=== PATIENT | female | born 1955 | race African-American/Black ===

== ENCOUNTER 2016-05-18 21:48 | Inpatient (IN) | payer OTHER, MEDICARE ==
[~2016-05-18] VITALS: Ht 162.6 cm; Wt 56.6 kg
[2016-05-18] MEDS: LABETALOL 200 MG TAB PO SCH (21:00)
[2016-05-18] MEDS: amLODIPine 5 MG TAB PO SCH (21:00)
[2016-05-18 22:38] LABS: BASO % 0.3 % (0.0-1.0); EOS % 0.4 % (0.0-3.0); LARGE UNSTAINED CELL # 0.1 K/mm3 (0.0-0.4); LYMPH # 1.7 K/mm3 (1.5-4.5); LYMPH % 26.8 % (24.0-44.0); MEAN CORPUSCULAR HEMOGLOBIN 30.7 pg (27.0-33.0); MEAN CORPUSCULAR HGB CONC 33.5 g/dl (32.0-36.5); MEAN CORPUSCULAR VOLUME 91.6 fl (80.0-96.0); MONO # 0.3 K/mm3 (0.0-0.8); MONO % 4.9 % (0.0-5.0); NEUTROPHILS # 4.3 K/mm3 (1.8-7.7); NEUTROPHILS % 65.6 % (36.0-66.0); PLATELET COUNT, AUTOMATED 164 k/mm3 (150-450); RED CELL DISTRIBUTION WIDTH 12.4 % (11.5-14.5); WHITE BLOOD COUNT 6.5 K/mm3 (4.0-10.0)
--- NOTE | 2016-05-18 22:50 | REPUSA ---
CLINICAL HISTORY: AMS. TECHNIQUE: Multiple axial CT images were obtained through the brain without IV contrast material. COMMENTS: There is normal configuration of sella turcica. There are no intra or extra-axial collections. There is no mass effect or midline shift. There is no evidence of hematoma formation. No hydrocephalus is p resent. The ventricles are symmetrical. No abnormal calcifications are present. There is diffuse age-appropriate cerebellar and cerebral atrophy with proportionally dilated ventricl es and cortical sulci. Right temporal encephalomalacia is seen compatible with old infarct. There are bilateral confluent periventricular and subcortical white matter hypolucencies compatible w ith severe chronic microvascular disease. Otherwise, no significant focal abnormalities are seen either in the posterior fossa or supratentoria l compartment. IMPRESSION: 1. Severe cerebellar and cerebral atrophy. 2. Severe chronic microvascular disease. 3. Old right temporal infarct. 4. No evidence of acute intracranial pathology. Thank you for your kind referral of this patient.
[2016-05-18 22:51] LABS: ALBUMIN 3.7 GM/DL (3.2-5.2); ALKALINE PHOSPHATASE 89 U/L (45-117); ALT/SGPT 44 U/L (12-78); ANION GAP 7 MEQ/L (8-16); AST/SGOT 36 U/L (15-37); BILIRUBIN,DIRECT 0.1 MG/DL (0.0-0.2); BILIRUBIN,TOTAL 0.3 MG/DL (0.2-1.0); BLOOD UREA NITROGEN 27 MG/DL (7-18); CALCIUM LEVEL 8.9 MG/DL (8.8-10.2); CARBON DIOXIDE LEVEL 31 MEQ/L (21-32); CHLORIDE LEVEL 108 MEQ/L (98-107); CREATININE FOR GFR 1.16 MG/DL (0.55-1.02); GLOMERULAR FILTRATION RATE > 60.0 (>45); GLUCOSE, FASTING 156 MG/DL (80-110); POTASSIUM SERUM 4.7 MEQ/L (3.5-5.1); SODIUM LEVEL 146 MEQ/L (136-145); TOTAL PROTEIN 7.8 GM/DL (6.4-8.2)
[2016-05-18] MEDS ORDERED: ENALAPRILAT INJ 2.5MG/2ML VIAL As Ordered ONE (23:29)
[2016-05-19] MEDS ORDERED: ASPI81TA7 PO
[2016-05-19] MEDS ORDERED: ACETAMINOPHEN 500 MG TAB PO PRN
[2016-05-19] MEDS ORDERED: CALCTAB41 PO
[2016-05-19] MEDS ORDERED: VITMTA PO
[2016-05-19] MEDS ORDERED: ONDANSETRON 4MG/2ML VIAL (J2405) IV PRN
[2016-05-19] MEDS ORDERED: NS 1,000 ML IV SCH (00:15)
[2016-05-19 00:34] LABS: AMPHETAMINES LEVEL URINE NEGATIVE (NEGATIVE); BENZODIAZEPINES URINE NEGATIVE (NEGATIVE); COCAINE METABOLITE URINE NEGATIVE (NEGATIVE); CONTROL LINE INT CTR LINE PRESENT; METHADONE URINE NEGATIVE (NEGATIVE); OPIATES URINE NEGATIVE (NEGATIVE); TRICYCLIC ANTIDEPRESS URINE NEGATIVE (NEGATIVE)
[2016-05-19] MEDS ORDERED: LABETALOL 100 MG TAB As Ordered ONE (01:31)
[2016-05-19] MEDS ORDERED: amLODIPine 5 MG TAB As Ordered ONE ×2 (01:31→08:02)
[2016-05-19 06:55] LABS: BASO % 0.4 % (0.0-1.0); EOS % 0.6 % (0.0-3.0); LARGE UNSTAINED CELL # 0.1 K/mm3 (0.0-0.4); LARGE UNSTAINED CELL % 2.2 % (0.0-4.0); LYMPH # 1.6 K/mm3 (1.5-4.5); LYMPH % 28.9 % (24.0-44.0); MEAN CORPUSCULAR HEMOGLOBIN 30.4 pg (27.0-33.0); MEAN CORPUSCULAR HGB CONC 33.3 g/dl (32.0-36.5); MEAN CORPUSCULAR VOLUME 91.5 fl (80.0-96.0); MONO # 0.3 K/mm3 (0.0-0.8); MONO % 6.1 % (0.0-5.0); NEUTROPHILS # 3.4 K/mm3 (1.8-7.7); NEUTROPHILS % 61.8 % (36.0-66.0); PLATELET COUNT, AUTOMATED 176 k/mm3 (150-450); RED CELL DISTRIBUTION WIDTH 12.4 % (11.5-14.5); WHITE BLOOD COUNT 5.4 K/mm3 (4.0-10.0)
[2016-05-19 07:15] LABS: ANION GAP 7 MEQ/L (8-16); BLOOD UREA NITROGEN 19 MG/DL (7-18); CALCIUM LEVEL 8.1 MG/DL (8.8-10.2); CARBON DIOXIDE LEVEL 26 MEQ/L (21-32); CHLORIDE LEVEL 113 MEQ/L (98-107); CREATININE FOR GFR 0.91 MG/DL (0.55-1.02); GLOMERULAR FILTRATION RATE > 60.0 (>45); GLUCOSE, FASTING 115 MG/DL (80-110); POTASSIUM SERUM 3.2 MEQ/L (3.5-5.1); SODIUM LEVEL 146 MEQ/L (136-145)
--- NOTE | 2016-05-19 07:36 | ECGEPIP ---
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
[2016-05-19] MEDS ORDERED: ENOXAPARIN 40 MG/0.4 ML SYRINGE (J1650) As Ordered ONE (08:02)
[2016-05-19] MEDS ORDERED: PANTOPRAZOLE 40MG TAB (PROTONIX) As Ordered ONE (08:02)
[2016-05-19] MEDS: LABETALOL 200 MG TAB PO SCH ×2 (08:09→21:03)
[2016-05-19] MEDS: SENOKOT S TAB PO SCH ×2 (08:09→21:02)
[2016-05-19] MEDS: ENOXAPARIN 40 MG/0.4 ML SYRINGE (J1650) SC SCH (08:09)
[2016-05-19] MEDS: amLODIPine 5 MG TAB PO SCH ×2 (08:09→21:02)
[2016-05-19] MEDS: ASPIRIN 81 MG ENTERIC TAB PO SCH (08:09)
[2016-05-19] MEDS: PANTOPRAZOLE 40MG TAB (PROTONIX) PO SCH (08:09)
--- NOTE | 2016-05-19 09:25 | REP ---
Clinical: Trauma. Technique: AP, lateral, bilateral oblique, and coned-down views of the lumbosacral spine. Findings: Diffuse chronic multilevel degenerative changes are appreciated including anterior spurring, endplate sclerosis, disc space narrowing and hypertrophic facet changes. There is mild anterolisthesis at the L4-5 level. No obvious acute fracture / compression injury identified. Impression: Multilevel degenerative changes and mild anterolisthesis at the L4-5 level. No obvious acute fracture / compression injury. Signed by Justin Latham MD 05/19/2016 09:16 A
--- NOTE | 2016-05-19 09:26 | REP ---
Clinical: Trauma. Technique: AP, lateral, bilateral oblique, flexion/extension, swimmers and open-mouth views of the cervical spine. Findings: Alignment and lordosis maintained without evidence for acute fracture / compression injury or subluxation. Mild age-related degenerative changes are appreciated including subtle anterior spurring and minimal endplate sclerosis at multiple levels. Spinous processes are intact. Open mouth view demonstrates normal C1-C2 articulation and odontoid process. Impression: Multilevel age-related degenerative changes. No acute fracture / compression injury identified. Signed by Justin Latham MD 05/19/2016 09:18 A
--- NOTE | 2016-05-19 09:27 | REP ---
Clinical: Trauma. Fall. . Comparison: None . Technique: AP view only . Findings: The mediastinum and cardiac silhouette are normal. The lung neely suggest trace left basilar atelectasis without focal consolidation, effusion, or pneumothorax. The skeletal structures are intact and normal. Impression: 1. Trace left basilar atelectasis. Signed by Justin Latham MD 05/19/2016 09:19 A
--- NOTE | 2016-05-19 09:28 | REP ---
Clinical: Trauma. Technique: AP view of the pelvis with neutral and frog lateral views of the right and left hip. Findings: Mild symmetric age-related changes are appreciated throughout the pelvis and hips. There is no evidence for acute fracture or dislocation. Impression: Age-related changes. No acute fracture or dislocation. Signed by Justin Latham MD 05/19/2016 09:21 A
--- NOTE | 2016-05-19 09:29 | REP ---
Clinical: thoracic pain. Trauma. Fall. Technique: AP, lateral. Findings: Alignment and kyphosis is maintained. Vertebral bodies intact. No acute fracture / compression injury or subluxation. Impression: No acute fracture / compression injury or subluxation. Signed by Justin Latham MD 05/19/2016 09:21 A
[2016-05-19 09:52] LABS: MAGNESIUM LEVEL 1.9 MG/DL (1.8-2.4)
--- NOTE | 2016-05-19 11:42 | HPE ---
DATE OF ADMISSION: 05/18/2016 PRIMARY CARE PROVIDER: Does not have any primary care provider. CHIEF COMPLAINT: As per emergency medical services (EMS), the patient was found at the bottom of the stairs in her apartment building and had difficulty in communication, so she was brought in for altered mental status. The patient stated that she stroked out so she was brought to the hospital. PAST MEDICAL HISTORY: 1. 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 2. Depression. 3. Hypertension. 4. Asthma. 5. Unstable gait. HISTORY OF PRESENT ILLNESS: This is a 60-year-old female who lives alone in an apartment with right-sided hemiparesis mostly affecting the right upper extremity, unstable gait, supposed to use a walker while walking, however, does not use it, was found at the bottom of the stairs in her apartment building and emergency medical services (EMS) was called. EMS found her laying at the bottom and had difficulty in communicating with her, so they brought her to the emergency room for altered mental status. The patient denied falling down the stairs. She said she cannot remember how she ended up on the floor. Denied having any pain anywhere. Did say that she is having more difficulty in speaking since yesterday. It is unknown how long the patient was on the floor and she thinks that she may have lost her balance, fallen down, and then could not get up. The patient denied any fever or chills. Denied any chest pain, cough, or phlegm. Denied any abdominal pain, nausea, vomiting, or diarrhea. In the emergency department (ED), the patient had a CT head done which showed old right temporal lobe infarct with encephalomalacia, severe cerebellar and cerebral atrophy, severe chronic microvascular disease. There was no evidence of acute intracranial event. The patient's blood work was significant for a sodium of 146, creatinine of 1.1, blood urea nitrogen (BUN) of 27, lactate of 3.5. The patient is being admitted to the hospitalist service for altered mental status, rule out stroke. PAST SURGICAL HISTORY: Could not obtain. ALLERGIES: No known drug allergies. SOCIAL HISTORY: Has never been a smoker. Does not abuse alcohol or recreational drugs. REVIEW OF SYSTEMS: All 10-point review of systems is negative except as mentioned in the history of present illness. PHYSICAL EXAMINATION: VITAL SIGNS: Blood pressure 208/106, pulse 101, respiratory rate 20, temperature 98.3, pulse oximetry 98% in room air. GENERAL: The patient is awake, alert and oriented times three, laying down in bed, in no acute distress. HEENT: Normocephalic, atraumatic. Moist mucous membranes. Anicteric eyes. CHEST: Clear to auscultation. CARDIOVASCULAR: S1, S2, regular. No rub, murmur, or gallop. ABDOMEN: Soft, nontender. Bowel sounds present. EXTREMITIES: No edema. LABORATORY DATA: WBC 6.5, hemoglobin 12.8, platelets 164. Sodium 146, potassium 4.7, chloride 108, bicarbonate 31, BUN 27, creatinine 1.1, glucose 156, lactic acid 3.5. Cardiac enzymes are negative. CPK is 313. Liver function tests normal. TSH is normal. Urine toxicology is negative. UA shows 10 WBCs, trace leukocyte esterase, negative nitrite. ASSESSMENT AND PLAN: This is a 60-year-old female admitted to rule out stroke. PLAN: 1. Dysarthria, unknown baseline, though the patient claims it is new. CT scan did not show any new stroke. We will get an MRI and MRA for evaluation of acute stroke. We will continue with aspirin 81 mg daily. 2. Hypertension, poorly controlled, unknown medications at this time, so we will start the patient on amlodipine and labetalol. 3. Depression. The patient is to be venlafaxine, unknown what she is taking at this time. 4. Asthma. There are no issues at this point. 5. History of old cerebral vascular accident (CVA) with right-sided hemiparesis with unstable gait. We will request physical therapy to evaluate her. 6. Fall due to unstable gait and the patient not using her walker. We will get physical therapy (PT) to evaluate her. 7. Dehydration, as evidenced by a slightly high sodium, mildly elevated lactate, and mildly elevated blood urea nitrogen (BUN) and creatinine. We will continue the patient with IV hydration. This could be because the patient was down on the floor for an unknown duration. 8. Deep vein thrombosis (DVT) prophylaxis has been ordered. 9. Gastrointestinal (GI) prophylaxis has been ordered.
[2016-05-19] MEDS ORDERED: POTASSIUM CHLORIDE 10 MEQ SR TABLET As Ordered ONE (11:56)
[2016-05-19] MEDS ORDERED: POTASSIUM CHLORIDE 10 MEQ SR TABLET PO ONE (12:00)
--- NOTE | 2016-05-19 13:02 | EDDOCDS ---
Nurse's Notes [facility] Name: Gaye Mata Age: 60 yrs Sex: Female : 1955 Arrival Date: 05/18/2016 Time: 21:48 Bed 15 Private MD: Unknown Pcp Diagnosis: Altered mental status, unspecified;Dysarthria following other cerebrovascular disease;Hypertensive encephalopathy Presentation: 05/18 21:53 Presenting complaint: EMS states: pt found at bottom of stairs. Unable to confirm any ttb information. Adult Sepsis Screening: Patient has new or worsening altered mentation (1 point). Patient's respiratory rate is less than 22. Suicide/Homicide risk assessment- Unable to assess, the patient has an altered level of consciousness. 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 Transition of care: patient was not received from another setting of care. 21:53 Acuity: KELSEY Level 2 ttb 21:53 Method Of Arrival: Ambulance ttb 21:59 Care prior to arrival: See EMS report. Saline lock initiated. Glucose check. 189. ttb 05/19 13:00 Adult Sepsis Screening: Systolic blood pressure is greater than 100. Patient has a pml qSOFA score of 0- Negative Sepsis Screen. Triage Assessment: 05/18 21:55 General: Appears in no apparent distress, well nourished, well groomed, Behavior is ttb flat, pleasant. Neurological: Level of Consciousness is awake, alert, confused, Oriented to none. Respiratory: Airway is patent Respiratory effort is even, unlabored. Derm: Skin is normal. Injury Description: No known injury. 05/19 13:00 HIV screening NA for this visit unable to assess. pml Historical: - Allergies: Unable to obtain; - Home Meds: 1. Unknown - PMHx: Unable to obtain; - PSHx: Unable to obtain; - Social history: Not able to communicate due to their condition, Smoking status: unknown if patient ever smoked tobacco. - Family history: Not pertinent. - : Unable to assess if pt is on anticoagulants. Unable to Verify Home Med List with the patient / caregiver. - Exposure Risk Screening:: Unable to Assess. Screenin/14 22:05 Screening information is obtained from unknown, unable to assess. Fall risk: At risk tm5 due to apparent cognitive impairment, prior history of falls. Assistance ADL's: requires no assistance with activities of daily living. Abuse/DV Screen: The patient / caregiver reports he/she is: not in a situation that causes fear, pain or injury. Nutritional screening: Unable to Assess. Advance Directives: Unable to assess Advance Directive status due to pt condition. home support is adequate. Assessment: 22:05 General: Appears distressed, Behavior is uncooperative. Pain: Denies pain. tm5 Neurological: Level of Consciousness is awake, alert, Oriented to person, pt confused to time & place. Medical Psychotherapist are weak on left Moves all extremities. Weakness in left Gait is unable to assess. Speech with expressive aphasia noted, Facial symmetry appears normal, Facial symmetry: tongue is midline, Pupils are PERRLA. Cardiovascular: Rhythm is sinus tachycardia No ectopy. Respiratory: Airway is patent Respiratory effort is even, unlabored, Respiratory pattern is regular, symmetrical, Breath sounds are clear bilaterally. GI: No deficits noted. : No deficits noted. Derm: Skin is pink, warm & dry. normal. Musculoskeletal: No deficits noted. 23:39 Neurological: Level of Consciousness is awake, alert, Oriented to person, Medical Psychotherapist are tm5 weak on left Weakness in left Speech with expressive aphasia noted, Facial symmetry appears normal, Facial symmetry: tongue is midline, Pupils are PERRLA. 05/19 01:00 General: pt attempting to climb out of bed, pulled IV tubing off from saline lock, tm5 blood leaking from IV site, pt confused at this time, is asking to go to the bathroom was told she had Mckeon in place & she doesn't seem to understand what that means, saline lock flushed easily with normal saline. 02:13 Reassessment: Patient appears in no apparent distress at this time. Patient states tm5 feeling better. Patient states symptoms have improved. General: pt completed boxed meal & tolerated well, no changes in assessment . Neurological: Level of Consciousness is awake, alert, Oriented to person, Medical Psychotherapist are weak on left Moves all extremities. Weakness in left Speech with expressive aphasia noted, Facial symmetry appears normal, Facial symmetry: tongue is midline, Pupils are PERRLA. Cardiovascular: Rhythm is sinus rhythm. 04:06 Reassessment: Patient appears in no apparent distress at this time. pt sleeping with tm5 easy respirations, no s/s of any distress. 05:56 Reassessment: Patient appears in no apparent distress at this time. pt remains resting tm5 with eyes closed, resp easy, no s/s of any distress. 07:05 General: Appears in no apparent distress, Behavior is appropriate for age, cooperative. pml Pain: Denies pain. Neurological: Level of Consciousness is awake, alert. Cardiovascular: Capillary refill < 3 seconds Rhythm is sinus rhythm No ectopy. Respiratory: Airway is patent Respiratory effort is even, unlabored. : Mckeon in place to gravity drainage. Derm: Skin is pink, warm & dry. 08:22 General: resting quietly on stretcher, PO meds as per written orders. resps easy and pml unlabored, skin p/w/d . 09:14 General: Appears in no apparent distress, Behavior is appropriate for age, cooperative. pml Neurological: Level of Consciousness is awake, alert. Cardiovascular: Capillary refill < 3 seconds Rhythm is sinus rhythm No ectopy. Derm: Skin is pink, warm & dry. 10:07 General: Resting on stretcher, eyes closed, sinus rhythm without change. resps easy and pml unlabored, skin p/w/d. 11:20 General: Appears in no apparent distress, comfortable, Behavior is appropriate for age, pml cooperative. Neurological: Level of Consciousness is awake, alert, Oriented to person, place. Cardiovascular: Capillary refill < 3 seconds Rhythm is sinus rhythm No ectopy. Derm: Skin is pink, warm & dry. 12:01 General: PO meds as per orders on jul. tolerated pills one at a time with sips pml of water. 12:57 General: Appears in no apparent distress, Behavior is appropriate for age, cooperative. pml Pain: Denies pain. Neurological: Level of Consciousness is awake, alert, Oriented to person, place. Cardiovascular: Capillary refill < 3 seconds Rhythm is sinus rhythm No ectopy. Respiratory: Airway is patent Respiratory effort is even, unlabored. GI: Abdomen is non- distended. Derm: Skin is pink, warm & dry. Vital Signs: 05/18 21:55 Resp 20; ttb 22:05 BP 208 / 106; Pulse 101; Resp 20 S; Temp 98.3(TE); Pulse Ox 98% on R/A; Weight 68.04 tm5 kg; Height 5 ft. 4 in. (162.56 cm); Pain 0/10; 23:05 BP 184 / 95 (auto/); tm5 23:05 Pulse 80 MON; Pulse Ox 96% ; tm5 23:13 BP 173 / 91 (auto/); tm5 23:13 Pulse 74 MON; Pulse Ox 96% ; tm5 23:28 BP 182 / 93 (auto/); tm5 23:28 Pulse 76 MON; Resp 18 S; Pulse Ox 97% on R/A; Pain 0/10; tm5 23:37 BP 191 / 95 (auto/); tm5 23:37 Pulse 96 MON; Resp 20 S; Pulse Ox 98% on R/A; Pain 0/10; tm5 23:43 BP 207 / 98 (auto/); tm5 23:43 Pulse 92 MON; Pulse Ox 95% on R/A; tm5 23:43 BP 210 / 110; Pulse 90; Resp 20 S; Pulse Ox 96% on R/A; Pain 0/10; tm5 05/19 00:13 BP 200 / 102 (auto/); tm5 00:13 Pulse 88 MON; Pulse Ox 96% ; tm5 00:28 BP 180 / 98 (auto/); tm5 00:28 Pulse 84 MON; Resp 18 S; Pulse Ox 95% on R/A; Pain 0/10; tm5 00:53 BP 199 / 95 (auto/); tm5 00:53 Pulse 106 MON; Resp 18 S; Pulse Ox 98% on R/A; Pain 0/10; tm5 01:13 BP 171 / 88 (auto/); tm5 01:13 Pulse 84 MON; Pulse Ox 97% ; tm5 01:28 BP 163 / 85 (auto/); tm5 01:28 Pulse 80 MON; Pulse Ox 97% ; tm5 01:43 Pulse 82 MON; Pulse Ox 97% ; tm5 01:43 BP 185 / 90 (auto/); tm5 01:58 BP 175 / 91 (auto/); tm5 01:58 Pulse 86 MON; Resp 18 S; Pulse Ox 95% on R/A; Pain 0/10; tm5 02:13 BP 157 / 79 (auto/); tm5 02:13 Pulse 78 MON; tm5 02:28 BP 130 / 67 (auto/); tm5 02:28 Pulse 74 MON; tm5 02:43 BP 135 / 70 (auto/); tm5 02:43 Pulse 76 MON; Resp 16 S; Pulse Ox 96% on R/A; Pain 0/10; tm5 02:58 BP 131 / 66 (auto/); tm5 02:58 Pulse 76 MON; Resp 16 S; Pulse Ox 97% on R/A; tm5 03:13 BP 139 / 74 (auto/); tm5 03:13 Pulse 80 MON; Resp 20 S; Pulse Ox 98% on R/A; Pain 0/10; tm5 06:23 BP 149 / 74 (auto/); pml 06:24 Pulse 80 MON; Pulse Ox 97% ; pml 06:26 BP 149 / 74; Pulse 82; Resp 20; Temp 96.5(T); Pulse Ox 98% on R/A; Pain 0/10; jmv 07:03 BP 132 / 75 (auto/); pml 07:04 Pulse 76 MON; Pulse Ox 97% ; pml 07:17 BP 126 / 68 (auto/); pml 07:18 Pulse 64 MON; Pulse Ox 95% ; pml 07:32 BP 136 / 71 (auto/); pml 07:33 Pulse 62 MON; Pulse Ox 98% ; pml 07:47 BP 130 / 70 (auto/); pml 07:48 Pulse 62 MON; Pulse Ox 97% ; pml 08:02 BP 127 / 63 (auto/); pml 08:03 Pulse 60 MON; Pulse Ox 98% ; pml 08:17 BP 136 / 75 (auto/); pml 08:18 Pulse 74 MON; Pulse Ox 98% ; pml 08:32 BP 154 / 84 (auto/); pml 08:32 Pulse 76 MON; Pulse Ox 99% ; pml 08:47 BP 130 / 69 (auto/); pml 08:48 Pulse 76 MON; pml 09:02 BP 128 / 69 (auto/); pml 09:02 BP 128 / 69 (auto/); pml 09:03 Pulse 74 MON; pml 09:11 Pulse 68 MON; pml 09:17 Pulse 64 MON; Pulse Ox 97% ; pml 09:17 BP 97 / 53 (auto/); pml 09:32 Pulse 64 MON; Pulse Ox 97% ; pml 09:32 BP 114 / 61 (auto/); pml 09:47 Pulse 62 MON; Pulse Ox 97% ; pml 09:47 BP 115 / 60 (auto/); pml 10:02 Pulse 62 MON; Pulse Ox 97% ; pml 10:02 BP 119 / 65 (auto/); pml 10:17 Pulse 66 MON; Pulse Ox 98% ; pml 10:17 BP 116 / 63 (auto/); pml 10:31 Pulse 64 MON; Pulse Ox 98% ; pml 10:32 BP 128 / 64 (auto/); pml 10:47 Pulse 60 MON; Pulse Ox 98% ; pml 10:47 BP 120 / 60 (auto/); pml 11:02 Pulse 62 MON; Pulse Ox 98% ; pml 11:02 BP 120 / 63 (auto/); pml 11:17 Pulse 72 MON; Pulse Ox 98% ; pml 11:17 BP 133 / 69 (auto/); pml 11:32 Pulse 80 MON; pml 11:32 BP 135 / 70 (auto/); pml 11:46 Pulse 74 MON; pml 11:47 BP 135 / 71 (auto/); pml 12:02 Pulse 76 MON; Pulse Ox 99% ; pml 12:02 BP 150 / 82 (auto/); pml 12:58 BP 119 / 67; Pulse 72; Resp 18; Temp 97.9; Pulse Ox 99% ; Pain 0/10; pml 05/18 22:05 Body Mass Index 25.75 (68.04 kg, 162.56 cm) tm5 Vitals: 05/18 21:55 Log In Time N/A - ambulance arrival. ttb ED Course: 21:49 Patient visited by Krystina Colbert PCA. tmm1 21:49 Unknown Pcp is Private Physician. tmm1 21:49 Patient moved to Waiting tmm1 21:50 Patient name changed from Gaye\S\\S\Mata\S\ to Gaye\S\ \S\Mata. EDMS 21:51 Kemar Vital DO is Attending Physician. cs11 21:51 Patient visited by Kemar Vital DO. cs11 21:51 Patient moved to 4 tmm1 21:55 Triage Initiated ttb 22:04 Patient visited by Bozena Sheltno RN. tm5 22:[address] Scan. Awaiting ED physician evaluation. tm5 22:05 The patient / caregiver is instructed regarding the plan of care and ED course. Cardiac tm5 monitor on. Pulse ox on. NIBP on. 22:05 Inserted saline lock: 18 gauge in left antecubital area and blood collected. The tm5 patient tolerated the procedure well. Labs drawn. (by ED staff). 22:[address] tm5 22:16 Patient visited by Bozena Shelton RN. tm5 22:17 Lactic Acid (Bledsoe tube on ice) Sent. tm5 22:17 Acetaminophen Level Sent. tm5 22:17 Salicylate Level Sent. tm5 22:17 CBC with Diff Sent. tm5 22:17 Liver Profile Sent. tm5 22:17 MED Profile Sent. tm5 22:17 Thyroid Stimulating Hormone Sent. tm5 22:19 Patient visited by Bozena Shelton RN. tm5 22:19 Patient moved back from CT. tm5 22:33 Patient visited by Bozena Shelton RN. tm5 22:47 Patient visited by Bozena Shelton RN. tm5 22:58 Notified attending ED physician of Critical lab value. Lactic Acid 3.5. kmg1 23:14 Amy Markham is Hospitalizing Provider. cs11 23:17 CT Head Without Contrast Returned. EDMS 23:37 Patient visited by Bozena Shelton RN. tm5 23:38 Psych services to see patient. Visited by Hospitalist Mary at bedside. tm5 23:41 [facility] Payment Agreement was scanned into [employer] and attached to record. hs2 23:43 Mckeon cath inserted 18 Fr. Balloon inflated. To gravity drainage. Urine specimen tm5 collected. returned cloudy urine. Patient tolerated poorly. 05/19 00:11 Patient visited by Bozena Shelton RN. tm5 00:12 Urine Culture Sent. tm5 00:12 Urinalysis Sent. tm5 00:12 Drug Eval Toxicology ED Only Sent. tm5 00:38 Patient moved to Admit Hold tmm1 01:00 Patient visited by Bozena Shelton RN. tm5 02:13 Patient visited by Bozena Shelton RN. tm5 04:06 Patient visited by Bozena Shelton RN. tm5 04:52 Patient visited by Boezna Shelton RN. tm5 05:19 Patient visited by Bozena Shelton RN. tm5 06:27 Patient visited by Darren Cortez PCA. jmv 06:35 Patient visited by Bozena Shelton RN. tm5 06:56 Patient visited by Bozena Shelton RN. tm5 06:57 Patient visited by Bozena Shelton RN. tm5 06:57 Report given to Yakelin Villegas RN. tm5 07:06 Patient visited by Yakelin Alegria RN. pml 07:59 EKG-ADULT Returned. EDMS 08:24 Patient visited by Yakelin Alegria RN. pml 08:27 Patient moved to 15 pml 09:16 Patient visited by Yakelin Alegria RN. pml 09:30 T-Sheet-- Draft Copy was scanned into [employer] and attached to record. seh 09:40 Spine. Lumbosacral, complete Returned. EDMS 09:40 Spine, Cervical Returned. EDMS 09:40 Chest, 1 view Returned. EDMS 09:40 Hip,AP,LAT to include Pelvis Returned. EDMS 09:40 Spine, Thoracic 3 VIEWS Returned. EDMS 10:09 Patient visited by Yakelin Alegria RN. pml 11:21 Patient visited by Yakelin Alegria RN. pml 11:32 No procedures done that require assistance. pml 12:02 Patient visited by Yakelin Alegria RN. pml Administered Medications: 05/18 23:38 Drug: NS 0.9% 1000 ml [sodium chloride 0.9 % intravenous solution] Route: IV; Rate: tm5 bolus; Site: left forearm; 05/19 00:45 Follow up: IV Status: Completed infusion; IV Intake: 1000ml tm5 05/18 23:38 Drug: Enalaprilat 2.5 mg [enalaprilat 1.25 mg/mL intravenous solution] Route: IV; Rate: tm5 calculated rate; Site: left forearm; 05/19 00:12 Follow up: Response: No Adverse Reaction; No significant change. tm5 00:20 Follow up: Response: Blood pressure is improved; No Adverse Reaction tm5 Intake: 00:45 IV: 1000.00ml; Total: 1000.00ml. tm5 Output: 06:35 Urine: 1000.00ml (Mckeon); Total: 1000.00ml. tm5 Order Results: Lab Order: CBC with Diff; SPEC'M 05/18/16 22:13 Test: WHITE BLOOD COUNT; Value: 6.5; Range: 4.0-10.0; Units: K/mm3; Status: F Test: RED BLOOD COUNT; Value: 4.18; Range: 4.00-5.40; Units: M/mm3; Status: F Test: HEMOGLOBIN; Value: 12.8; Range: 12.0-16.0; Units: g/dl; Status: F Test: HEMATOCRIT; Value: 38.3; Range: 36.0-47.0; Units: %; Status: F Test: MEAN CORPUSCULAR VOLUME; Value: 91.6; Range: 80.0-96.0; Units: fl; Status: F Test: MEAN CORPUSCULAR HEMOGLOBIN; Value: 30.7; Range: 27.0-33.0; Units: pg; Status: F Test: MEAN CORPUSCULAR HGB CONC; Value: 33.5; Range: 32.0-36.5; Units: g/dl; Status: F Test: RED CELL DISTRIBUTION WIDTH; Value: 12.4; Range: 11.5-14.5; Units: %; Status: F Test: PLATELET COUNT, AUTOMATED; Value: 164; Range: 150-450; Units: k/mm3; Status: F Test: NEUTROPHILS %; Value: 65.6; Range: 36.0-66.0; Units: %; Status: F Test: LYMPH %; Value: 26.8; Range: 24.0-44.0; Units: %; Status: F Test: MONO %; Value: 4.9; Range: 0.0-5.0; Units: %; Status: F Test: EOS %; Value: 0.4; Range: 0.0-3.0; Units: %; Status: F Test: BASO %; Value: 0.3; Range: 0.0-1.0; Units: %; Status: F Test: LARGE UNSTAINED CELL %; Value: 2.0; Range: 0.0-4.0; Units: %; Status: F Test: NEUTROPHILS #; Value: 4.3; Range: 1.8-7.7; Units: K/mm3; Status: F Test: LYMPH #; Value: 1.7; Range: 1.5-4.5; Units: K/mm3; Status: F Test: MONO #; Value: 0.3; Range: 0.0-0.8; Units: K/mm3; Status: F Test: EOS #; Value: 0.0; Range: 0.0-0.50; Units: K/mm3; Status: F Test: BASO #; Value: 0.0; Range: 0.0-0.2; Units: K/mm3; Status: F Test: LARGE UNSTAINED CELL #; Value: 0.1; Range: 0.0-0.4; Units: K/mm3; Status: F Lab Order: Liver Profile; SPEC'M 05/18/16 22:13 Test: AST/SGOT; Value: 36; Range: 15-37; Units: U/L; Status: F Test: ALT/SGPT; Value: 44; Range: 12-78; Units: U/L; Status: F Test: ALKALINE PHOSPHATASE; Value: 89; Range: 45-117; Units: U/L; Status: F Test: BILIRUBIN,TOTAL; Value: 0.3; Range: 0.2-1.0; Units: MG/DL; Status: F Test: BILIRUBIN,DIRECT; Value: 0.1; Range: 0.0-0.2; Units: MG/DL; Status: F Test: TOTAL PROTEIN; Value: 7.8; Range: 6.4-8.2; Units: GM/DL; Status: F Test: ALBUMIN; Value: 3.7; Range: 3.2-5.2; Units: GM/DL; Status: F Test: ALBUMIN/GLOBULIN RATIO; Value: 0.90; Range: 1.00-1.93; Abnormal: Below low normal; Status: F Lab Order: MED Profile; SPEC'M 05/18/16 22:13 Test: GLUCOSE, FASTING; Value: 156; Range: 80-110; Abnormal: Above high normal; Units: MG/DL; Status: F Test: BLOOD UREA NITROGEN; Value: 27; Range: 7-18; Abnormal: Above high normal; Units: MG/DL; Status: F Test: CREATININE FOR GFR; Value: 1.16; Range: 0.55-1.02; Abnormal: Above high normal; Units: MG/DL; Status: F Test: GLOMERULAR FILTRATION RATE; Value: > 60.0; Range: >45; Status: F Test: SODIUM LEVEL; Value: 146; Range: 136-145; Abnormal: Above high normal; Units: MEQ/L; Status: F Test: POTASSIUM SERUM; Value: 4.7; Range: 3.5-5.1; Units: MEQ/L; Status: F Test: CHLORIDE LEVEL; Value: 108; Range: 98-107; Abnormal: Above high normal; Units: MEQ/L; Status: F Test: CARBON DIOXIDE LEVEL; Value: 31; Range: 21-32; Units: MEQ/L; Status: F Test: ANION GAP; Value: 7; Range: 8-16; Abnormal: Below low normal; Units: MEQ/L; Status: F Test: CALCIUM LEVEL; Value: 8.9; Range: 8.8-10.2; Units: MG/DL; Status: F Test Note: ; Units are mL/min/1.73 m2 Chronic Kidney Disease Staging per NKF: Stage I & II GFR >=60 Normal to Mildly Decreased Stage III GFR 30-59 Moderately Decreased Stage IV GFR 15-29 Severely Decreased Stage V GFR <15 Very Little GFR Left ESRD GFR <15 on LABEL REMOVER Lab Order: Thyroid Stimulating Hormone; SPEC'M 05/18/16 22:13 Test: THYROID STIMULATING HORMONE; Value: 1.350; Range: 0.358-3.740; Units: uIU/ML; Status: F Lab Order: Acetaminophen Level; SPEC'M 05/18/16 22:13 Test: ACETAMINOPHEN LEVEL; Value: < 2.0; Range: 10.0-30.0; Abnormal: Below low normal; Units: UG/ML; Status: F Lab Order: Drug Eval Toxicology ED Only; SPEC'M 05/18/16 22:13 Test: AMPHETAMINES LEVEL URINE; Value: NEGATIVE; Range: NEGATIVE; Status: F Test: BARBITURATES URINE; Value: NEGATIVE; Range: NEGATIVE; Status: F Test: BENZODIAZEPINES URINE; Value: NEGATIVE; Range: NEGATIVE; Status: F Test: CANNABINOIDS URINE; Value: NEGATIVE; Range: NEGATIVE; Status: F Test: COCAINE METABOLITE URINE; Value: NEGATIVE; Range: NEGATIVE; Status: F Test: METHADONE URINE; Value: NEGATIVE; Range: NEGATIVE; Status: F Test: OPIATES URINE; Value: NEGATIVE; Range: NEGATIVE; Status: F Test: TRICYCLIC ANTIDEPRESS URINE; Value: NEGATIVE; Range: NEGATIVE; Status: F Test Note: ; ALL PRESUMPTIVE POSITIVE FINDINGS ARE UNCONFIRMED NORMAL VALUES THRESHOLD IN NG/ML AMPHETAMINES 1000 METHAMPHETAMINES 1000 BARBITURATES 300 BENZODIAZEPINES 300 CANNABINOIDS (THC) 50 COCAINE METABOLITE 300 METHADONE 300 OPIATES 300 PHENCYCLIDINE 25 TRICYCLIC ANTIDEPRESSANTS 1000 RESULTS ARE FOR MEDICAL PURPOSES ONLY. ALL URINE SPECIMENS WILL BE SAVED FOR 3 DAYS. IF CONFIRMATION OF A PRESUMPTIVE POSTIVE SCREEN RESULT IS DESIRED, CALL CHEMISTRY ([phone]) AND REQUEST URINE TO BE SENT TO REFERENCE LAB. FOR A LIST OF CLOSELY RELATED COMPOUNDS PLEASE CALL THE LAB. Lab Order: Salicylate Level; SPEC'M 05/18/16 22:13 Test: SALICYLATE LEVEL; Value: < 1.7; Range: 5.0-30.0; Abnormal: Below low normal; Units: MG/DL; Status: F Lab Order: Lactic Acid (Bledsoe tube on ice); SPEC'M 05/18/16 22:13 Test: LACTIC ACID LEVEL, LACTATE; Value: 3.5; Range: 0.4-2.0; Abnormal: Above upper panic limits; Units: MMOL/L; Status: F Lab Order: Urinalysis; SPEC'M 05/19/16 00:07 Test: APPEARANCE, URINE; Value: CLOUDY; Range: CLEAR; Abnormal: Above high normal; Status: F Test: COLOR, URINE; Value: YELLOW; Range: YELLOW; Status: F Test: PH,URINE; Value: 6.0; Range: 5.0-9.0; Units: UNITS; Status: F Test: SPECIFIC GRAVITY URINE AUTO; Value: 1.018; Range: 1.002-1.035; Status: F Test: PROTEIN, URINE AUTO; Value: NEGATIVE; Range: NEGATIVE; Units: mg/dL; Status: F Test: GLUCOSE, URINE (UA) AUTO; Value: NEGATIVE; Range: NEGATIVE; Units: mg/dL; Status: F Test: KETONE, URINE AUTO; Value: NEGATIVE; Range: NEGATIVE; Units: mg/dL; Status: F Test: UROBILINOGEN, URINE AUTO; Value: 2.0; Range: 0.0-2.0; Abnormal: Above high normal; Units: mg/dL; Status: F Test: BILIRUBIN, URINE AUTO; Value: NEGATIVE; Range: NEGATIVE; Status: F Test: NITRITE, URINE AUTO; Value: NEGATIVE; Range: NEGATIVE; Status: F Test: LEUKOCYTE ESTERASE, URINE AUTO; Value: TRACE; Range: NEGATIVE; Abnormal: Above high normal; Status: F Test: BLOOD, URINE BLOOD; Value: NEGATIVE; Range: NEGATIVE; Status: F Test: WBC, URINE AUTO; Value: 10; Range: 0-3; Abnormal: Above high normal; Units: /HPF; Status: F Test: RBC, URINE AUTO; Value: 1; Range: 0-3; Units: /HPF; Status: F Test: BACTERIA, URINE AUTO; Value: 1+; Range: NEGATIVE; Abnormal: Above high normal; Status: F Test: SQUAMOUS EPITHELIAL CELL UR AU; Value: 0; Range: 0-6; Units: /HPF; Status: F Test: HYALINE CAST, URINE AUTO; Value: 0; Range: 0-1; Units: /LPF; Status: F Test: AMORPHOUS SEDIMENT; Value: SMALL; Range: NEGATIVE; Abnormal: Above high normal; Status: F Lab Order: CBC WITH DIFFERENTIAL; SPEC'M 05/19/16 06:29 Test: WHITE BLOOD COUNT; Value: 5.4; Range: 4.0-10.0; Units: K/mm3; Status: F Test: RED BLOOD COUNT; Value: 3.79; Range: 4.00-5.40; Abnormal: Below low normal; Units: M/mm3; Status: F Test: HEMOGLOBIN; Value: 11.5; Range: 12.0-16.0; Abnormal: Below low normal; Units: g/dl; Status: F Test: HEMATOCRIT; Value: 34.6; Range: 36.0-47.0; Abnormal: Below low normal; Units: %; Status: F Test: MEAN CORPUSCULAR VOLUME; Value: 91.5; Range: 80.0-96.0; Units: fl; Status: F Test: MEAN CORPUSCULAR HEMOGLOBIN; Value: 30.4; Range: 27.0-33.0; Units: pg; Status: F Test: MEAN CORPUSCULAR HGB CONC; Value: 33.3; Range: 32.0-36.5; Units: g/dl; Status: F Test: RED CELL DISTRIBUTION WIDTH; Value: 12.4; Range: 11.5-14.5; Units: %; Status: F Test: PLATELET COUNT, AUTOMATED; Value: 176; Range: 150-450; Units: k/mm3; Status: F Test: NEUTROPHILS %; Value: 61.8; Range: 36.0-66.0; Units: %; Status: F Test: LYMPH %; Value: 28.9; Range: 24.0-44.0; Units: %; Status: F Test: MONO %; Value: 6.1; Range: 0.0-5.0; Abnormal: Above high normal; Units: %; Status: F Test: EOS %; Value: 0.6; Range: 0.0-3.0; Units: %; Status: F Test: BASO %; Value: 0.4; Range: 0.0-1.0; Units: %; Status: F Test: LARGE UNSTAINED CELL %; Value: 2.2; Range: 0.0-4.0; Units: %; Status: F Test: NEUTROPHILS #; Value: 3.4; Range: 1.8-7.7; Units: K/mm3; Status: F Test: LYMPH #; Value: 1.6; Range: 1.5-4.5; Units: K/mm3; Status: F Test: MONO #; Value: 0.3; Range: 0.0-0.8; Units: K/mm3; Status: F Test: EOS #; Value: 0.0; Range: 0.0-0.50; Units: K/mm3; Status: F Test: BASO #; Value: 0.0; Range: 0.0-0.2; Units: K/mm3; Status: F Test: LARGE UNSTAINED CELL #; Value: 0.1; Range: 0.0-0.4; Units: K/mm3; Status: F Lab Order: BASIC METABOLIC PROFILE; [facility]' 05/19/16 06:28 Test: GLUCOSE, FASTING; Value: 115; Range: 80-110; Abnormal: Above high normal; Units: MG/DL; Status: F Test: BLOOD UREA NITROGEN; Value: 19; Range: 7-18; Abnormal: Above high normal; Units: MG/DL; Status: F Test: CREATININE FOR GFR; Value: 0.91; Range: 0.55-1.02; Units: MG/DL; Status: F Test: GLOMERULAR FILTRATION RATE; Value: > 60.0; Range: >45; Status: F Test: SODIUM LEVEL; Value: 146; Range: 136-145; Abnormal: Above high normal; Units: MEQ/L; Status: F Test: POTASSIUM SERUM; Value: 3.2; Range: 3.5-5.1; Units: MEQ/L; Status: F Test: CHLORIDE LEVEL; Value: 113; Range: 98-107; Abnormal: Above high normal; Units: MEQ/L; Status: F Test: CARBON DIOXIDE LEVEL; Value: 26; Range: 21-32; Units: MEQ/L; Status: F Test: ANION GAP; Value: 7; Range: 8-16; Abnormal: Below low normal; Units: MEQ/L; Status: F Test: CALCIUM LEVEL; Value: 8.1; Range: 8.8-10.2; Abnormal: Below low normal; Units: MG/DL; Status: F Test Note: ; Units are mL/min/1.73 m2 Chronic Kidney Disease Staging per NKF: Stage I & II GFR >=60 Normal to Mildly Decreased Stage III GFR 30-59 Moderately Decreased Stage IV GFR 15-29 Severely Decreased Stage V GFR <15 Very Little GFR Left ESRD GFR <15 on LABEL REMOVER Lab Order: LACTIC ACID LEVEL, LACTATE; SPEC'05/19/16 03:27 Test: LACTIC ACID LEVEL, LACTATE; Value: 1.5; Range: 0.4-2.0; Units: MMOL/L; Status: F Lab Order: CARDIAC RISK PROFILE; SPEC05/19/16 06:28 Test: TRIGLYCERIDES LEVEL; Value: 43; Range: <150; Units: MG/DL; Status: F Test: CHOLESTEROL LEVEL; Value: 96; Range: <200; Units: MG/DL; Status: F Test: HDL CHOLESTEROL; Value: 50; Range: >40; Units: MG/DL; Status: F Test: LDL CHOLESTEROL; Value: 37.4; Range: <100; Units: MG/DL; Status: F Test: NON-HDL-C; Value: 46; Units: MG/DL; Status: F Test: CHOLESTEROL RISK RATIO; Value: 1.920; Range: <5; Status: F Lab Order: HEMOGLOBIN A1C; SPEC05/19/16 06:22 Test: HEMOGLOBIN A1c; Value: 5.2; Range: 4.5-6.2; Units: %; Status: F Test: ESTIMATED AVERAGE GLUCOSE; Value: 103; Range: 60-110; Units: MG/DL; Status: F Lab Order: CREATINE PHOSPHOKINASE; SPEC'05/19/16 06:28 Test: CPK CREATINE PHOSPHOKINASE; Value: 223; Range: 26-192; Abnormal: Above high normal; Units: U/L; Status: F Lab Order: TROPONIN; SPEC'M 05/19/16 06:28 Test: TROPONIN I; Value: 0.09; Range: < 0.10; Units: NG/ML; Status: F Test Note: ; Troponin I Reference Interval for Siemens [place] LOCI: 99th Percentile= 0.00-0.045 ng/ml Risk Stratification: <= 0.10 ng/ml Decreased Risk for Adverse Clinical Events. 0.10-1.50 ng/ml Increased Risk for Adverse Clinical Events. Evaluation of additional criterion and/or repeat testing in 2-6 hours is suggested to rule out myocardial damage. >= 1.50 ng/ml Indicative of Myocardial Injury. 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; : 1955 Requested By: KEMAR VITAL; Order Number: [id number] Reading MD: Amaris Sylvester; Measurements; Intervals [place]; Rate: 96 P: 58; OR: 142 QRS: 2; QRSD: 76 T: 33; QT: 376; QTc: 476; Interpretive Statements; SINUS RHYTHM WITH OCCASIONAL VENTRICULAR PREMATURE COMPLEXES; NONSPECIFIC ST T-WAVE ABNORMALITY; BASELINE ARTIFACT LIMITS INTERPRETATION; NO PRIOR FOR COMPARISON; Electronically Signed On 05-19-2016 7:36:05 EST by Amaris Sylvester; Radiology Order: CT Head Without Contrast Test: CT Head Without Contrast REASON FOR EXAMINATION: altered mental status; ; CLINICAL HISTORY: AMS.; TECHNIQUE: Multiple axial CT images were obtained through the brain without IV contrast material.; COMMENTS:; There is normal configuration of sella turcica. There are no intra or extra-axial collections. There; is no mass effect or midline shift. There is no evidence of hematoma formation. No hydrocephalus is p; resent. The ventricles are symmetrical. No abnormal calcifications are present.; There is diffuse age-appropriate cerebellar and cerebral atrophy with proportionally dilated ventricl; es and cortical sulci.; Right temporal encephalomalacia is seen compatible with old infarct.; There are bilateral confluent periventricular and subcortical white matter hypolucencies compatible w; ith severe chronic microvascular disease.; Otherwise, no significant focal abnormalities are seen either in the posterior fossa or supratentoria; l compartment.; IMPRESSION:; 1. Severe cerebellar and cerebral atrophy.; 2. Severe chronic microvascular disease.; 3. Old right temporal infarct.; 4. No evidence of acute intracranial pathology.; Thank you for your kind referral of this patient.; ; ; Radiology Order: Chest, 1 view Test: Chest, 1 view REASON FOR EXAMINATION: fall, pain; Clinical: Trauma. Fall. .; ; Comparison: None .; ; Technique: AP view only .; ; Findings:; The mediastinum and cardiac silhouette are normal. The lung neely suggest trace; left basilar atelectasis without focal consolidation, effusion, or pneumothorax.; The skeletal structures are intact and normal.; ; Impression:; 1. Trace left basilar atelectasis.; ; ; Signed by; Justin Latham MD 05/19/2016 09:19 A; Radiology Order: Hip,AP,LAT to include Pelvis Test: Hip,AP,LAT to include Pelvis REASON FOR EXAMINATION: fall; Clinical: Trauma.; ; Technique: AP view of the pelvis with neutral and frog lateral views of the; right and left hip.; ; Findings:; Mild symmetric age-related changes are appreciated throughout the pelvis and; hips. There is no evidence for acute fracture or dislocation.; ; Impression:; Age-related changes.; No acute fracture or dislocation.; ; ; Signed by; Justin Latham MD 05/19/2016 09:21 A; Radiology Order: Spine, Cervical Test: Spine, Cervical REASON FOR EXAMINATION: r/o fractures; Clinical: Trauma.; ; Technique: AP, lateral, bilateral oblique, flexion/extension, swimmers and; open-mouth views of the cervical spine.; ; Findings:; Alignment and lordosis maintained without evidence for acute fracture /; compression injury or subluxation. Mild age-related degenerative changes are; appreciated including subtle anterior spurring and minimal endplate sclerosis at; multiple levels. Spinous processes are intact. Open mouth view demonstrates; normal C1-C2 articulation and odontoid process.; ; Impression:; Multilevel age-related degenerative changes.; No acute fracture / compression injury identified.; ; ; Signed by; Justin Latham MD 05/19/2016 09:18 A; Radiology Order: Spine. Lumbosacral, complete Test: Spine. Lumbosacral, complete REASON FOR EXAMINATION: r/o fractures; Clinical: Trauma.; ; Technique: AP, lateral, bilateral oblique, and coned-down views of the; lumbosacral spine.; ; Findings:; Diffuse chronic multilevel degenerative changes are appreciated including; anterior spurring, endplate sclerosis, disc space narrowing and hypertrophic; facet changes. There is mild anterolisthesis at the L4-5 level. No obvious; acute fracture / compression injury identified.; ; Impression:; Multilevel degenerative changes and mild anterolisthesis at the L4-5 level. No; obvious acute fracture / compression injury.; ; ; Signed by; Justin Latham MD 05/19/2016 09:16 A; Radiology Order: Spine, Thoracic 3 VIEWS Test: Spine, Thoracic 3 VIEWS REASON FOR EXAMINATION: r/o fractures; Clinical: thoracic pain. Trauma. Fall.; ; Technique: AP, lateral.; ; Findings: Alignment and kyphosis is maintained. Vertebral bodies intact. No; acute fracture / compression injury or subluxation.; ; Impression:; No acute fracture / compression injury or subluxation.; ; ; Signed by; Justin Latham MD 05/19/2016 09:21 A; Outcome: 05/18 23:14 Decision to Hospitalize by Provider. cs11 05/19 11:32 Discharge Assessment: Patient awake, alert and oriented x 3. No cognitive and/or pml functional deficits noted. Patient verbalized understanding of disposition instructions. patient administered narcotics - no. The following High Risk Discharge criteria are identified: None. Admitted to PCU accompanied by nurse, accompanied by tech, via stretcher, on monitor, with chart. Condition: good Condition: stable. CT Study completed. Admission hand-off: Report Faxed Fax receipt verified by PCU. Property sent home with patient. 13:01 Patient left the ED. pml Signatures: Dispatcher [employer] EDNC Syeda Hollis, RN RN [id number] Yakelin Alegria RN RN pml Kemar Vital DO DO cs11 Treva Vargas RN RN ttb [place], Krystina, STAFF NURSE MIDWIFE STAFF NURSE MIDWIFE tmm1 Shaila Guzman, Reg Reg hs2 Amaris Springer, Darren, STAFF NURSE MIDWIFE STAFF NURSE MIDWIFE jmv Bozena Shelton RN RN tm5 Corrections: (The following items were deleted from the chart) 05/18 23:39 22:05 Neurological: Level of Consciousness is awake, alert, Oriented to person, pt tm5 confused to time & place. Medical Psychotherapist are equal bilaterally Moves all extremities. Full function Gait is unable to assess. Speech with expressive aphasia noted, Facial symmetry appears normal, Facial symmetry: tongue is midline, Pupils are PERRLA, [facility] 05/19 07:38 05/18 22:17 CARDIAC INJURY PROFILE+LAB sent. [address] 05/19 07:38 05/18 22:17 TROPONIN+LAB sent. [address] 05/19 09:15 07:05 Neurological: Level of Consciousness is awake, alert, Oriented to person, place, pml time, pml MTDD
--- NOTE | 2016-05-19 13:02 | EDDOCDS ---
Physician Documentation [facility] Name: Gaye Mata Age: 60 yrs Sex: Female : 1955 Arrival Date: 05/18/2016 Time: 21:48 Bed 15 Private MD: Unknown Pcp Disposition: 05/18 23:20 Critical Care:. cs11 Disposition: 05/18/16 23:14 Hospitalization ordered by Amy Markham for Inpatient Admission. Preliminary diagnosis are Altered mental status, unspecified, Dysarthria following other cerebrovascular disease, Hypertensive encephalopathy. - Bed requested for PCU. - Status is Inpatient Admission. pml - Condition is Stable. - Problem is an ongoing problem. - Symptoms are unchanged. Historical: - Allergies: Unable to obtain; - Home Meds: 1. Unknown - PMHx: Unable to obtain; - PSHx: Unable to obtain; - Social history: Not able to communicate due to their condition, Smoking status: unknown if patient ever smoked tobacco. - Family history: Not pertinent. - : Unable to assess if pt is on anticoagulants. Unable to Verify Home Med List with the patient / caregiver. - Exposure Risk Screening:: Unable to Assess. Vital Signs: 21:55 Resp 20; ttb 22:05 BP 208 / 106; Pulse 101; Resp 20 S; Temp 98.3(TE); Pulse Ox 98% on R/A; Weight 68.04 kg tm5 / 150 lbs; Height 5 ft. 4 in. (162.56 cm); Pain 0/10; 23:05 BP 184 / 95 (auto/); tm5 23:05 Pulse 80 MON; Pulse Ox 96% ; tm5 23:13 BP 173 / 91 (auto/); tm5 23:13 Pulse 74 MON; Pulse Ox 96% ; tm5 23:28 BP 182 / 93 (auto/); tm5 23:28 Pulse 76 MON; Resp 18 S; Pulse Ox 97% on R/A; Pain 0/10; tm5 23:37 BP 191 / 95 (auto/); tm5 23:37 Pulse 96 MON; Resp 20 S; Pulse Ox 98% on R/A; Pain 0/10; tm5 23:43 BP 207 / 98 (auto/); tm5 23:43 Pulse 92 MON; Pulse Ox 95% on R/A; tm5 23:43 BP 210 / 110; Pulse 90; Resp 20 S; Pulse Ox 96% on R/A; Pain 0/10; tm5 / 00:13 BP 200 / 102 (auto/); tm5 00:13 Pulse 88 MON; Pulse Ox 96% ; tm5 00:28 BP 180 / 98 (auto/); tm5 00:28 Pulse 84 MON; Resp 18 S; Pulse Ox 95% on R/A; Pain 0/10; tm5 00:53 BP 199 / 95 (auto/); tm5 00:53 Pulse 106 MON; Resp 18 S; Pulse Ox 98% on R/A; Pain 0/10; tm5 01:13 BP 171 / 88 (auto/); tm5 01:13 Pulse 84 MON; Pulse Ox 97% ; tm5 01:28 BP 163 / 85 (auto/); tm5 01:28 Pulse 80 MON; Pulse Ox 97% ; tm5 01:43 Pulse 82 MON; Pulse Ox 97% ; tm5 01:43 BP 185 / 90 (auto/); tm5 01:58 BP 175 / 91 (auto/); tm5 01:58 Pulse 86 MON; Resp 18 S; Pulse Ox 95% on R/A; Pain 0/10; tm5 02:13 BP 157 / 79 (auto/); tm5 02:13 Pulse 78 MON; tm5 02:28 BP 130 / 67 (auto/); tm5 02:28 Pulse 74 MON; tm5 02:43 BP 135 / 70 (auto/); tm5 02:43 Pulse 76 MON; Resp 16 S; Pulse Ox 96% on R/A; Pain 0/10; tm5 02:58 BP 131 / 66 (auto/); tm5 02:58 Pulse 76 MON; Resp 16 S; Pulse Ox 97% on R/A; tm5 03:13 BP 139 / 74 (auto/); tm5 03:13 Pulse 80 MON; Resp 20 S; Pulse Ox 98% on R/A; Pain 0/10; tm5 06:23 BP 149 / 74 (auto/); pml 06:24 Pulse 80 MON; Pulse Ox 97% ; pml 06:26 BP 149 / 74; Pulse 82; Resp 20; Temp 96.5(T); Pulse Ox 98% on R/A; Pain 0/10; jmv 07:03 BP 132 / 75 (auto/); pml 07:04 Pulse 76 MON; Pulse Ox 97% ; pml 07:17 BP 126 / 68 (auto/); pml 07:18 Pulse 64 MON; Pulse Ox 95% ; pml 07:32 BP 136 / 71 (auto/); pml 07:33 Pulse 62 MON; Pulse Ox 98% ; pml 07:47 BP 130 / 70 (auto/); pml 07:48 Pulse 62 MON; Pulse Ox 97% ; pml 08:02 BP 127 / 63 (auto/); pml 08:03 Pulse 60 MON; Pulse Ox 98% ; pml 08:17 BP 136 / 75 (auto/); pml 08:18 Pulse 74 MON; Pulse Ox 98% ; pml 08:32 BP 154 / 84 (auto/); pml 08:32 Pulse 76 MON; Pulse Ox 99% ; pml 08:47 BP 130 / 69 (auto/); pml 08:48 Pulse 76 MON; pml 09:02 BP 128 / 69 (auto/); pml 09:02 BP 128 / 69 (auto/); pml 09:03 Pulse 74 MON; pml 09:11 Pulse 68 MON; pml 09:17 Pulse 64 MON; Pulse Ox 97% ; pml 09:17 BP 97 / 53 (auto/); pml 09:32 Pulse 64 MON; Pulse Ox 97% ; pml 09:32 BP 114 / 61 (auto/); pml 09:47 Pulse 62 MON; Pulse Ox 97% ; pml 09:47 BP 115 / 60 (auto/); pml 10:02 Pulse 62 MON; Pulse Ox 97% ; pml 10:02 BP 119 / 65 (auto/); pml 10:17 Pulse 66 MON; Pulse Ox 98% ; pml 10:17 BP 116 / 63 (auto/); pml 10:31 Pulse 64 MON; Pulse Ox 98% ; pml 10:32 BP 128 / 64 (auto/); pml 10:47 Pulse 60 MON; Pulse Ox 98% ; pml 10:47 BP 120 / 60 (auto/); pml 11:02 Pulse 62 MON; Pulse Ox 98% ; pml 11:02 BP 120 / 63 (auto/); pml 11:17 Pulse 72 MON; Pulse Ox 98% ; pml 11:17 BP 133 / 69 (auto/); pml 11:32 Pulse 80 MON; pml 11:32 BP 135 / 70 (auto/); pml 11:46 Pulse 74 MON; pml 11:47 BP 135 / 71 (auto/); pml 12:02 Pulse 76 MON; Pulse Ox 99% ; pml 12:02 BP 150 / 82 (auto/); pml 12:58 BP 119 / 67; Pulse 72; Resp 18; Temp 97.9; Pulse Ox 99% ; Pain 0/10; pml 05/18 22:05 Body Mass Index 25.75 (68.04 kg, 162.56 cm) tm5 MDM: 05/18 21:57 ECG WITH READING ER PHYS+CARDIAG ordered. EDMS 22:06 CT Head Without Contrast Ordered. EDMS 22:11 School Admissions Representative/Pulse Ox/q 15 min VS ordered. tm5 22:11 Oxygen at 4L/Min NC or Home dosage ordered. tm5 22:11 Rhythm Strip to chart ordered. tm5 22:11 IV Saline Lock ordered. tm5 22:12 CBC with Diff Ordered. EDMS 22:12 Liver Profile Ordered. EDMS 22:12 MED Profile Ordered. EDMS 22:12 Thyroid Stimulating Hormone Ordered. EDMS 22:12 Acetaminophen Level Ordered. EDMS 22:12 Drug Eval Toxicology ED Only Ordered. EDMS 22:12 Salicylate Level Ordered. EDMS 22:12 Lactic Acid (Bledsoe tube on ice) Ordered. EDMS 23:05 Liver Profile Reviewed. cs11 23:05 MED Profile Reviewed. cs11 23:05 Acetaminophen Level Reviewed. cs11 23:05 Salicylate Level Reviewed. cs11 23:05 Lactic Acid (Bledsoe tube on ice) Reviewed. cs11 23:05 CBC with Diff Reviewed. cs11 23:05 Thyroid Stimulating Hormone Reviewed. cs11 23:05 NS 0.9% 1000 ml IV at bolus once ordered. cs11 23:06 Mckeon ordered. cs11 23:08 Urinalysis Ordered. EDMS 23:08 Urine Culture Ordered. EDMS 23:13 Enalaprilat 2.5 mg IV at calculated rate once; Administer over 5 minutes ordered. cs11 23:15 BED REQUEST+ADM ordered. EDMS 23:41 Financial registration complete. hs2 23:41 [facility] Payment Agreement was scanned into wum[employer] and attached to record. hs2 05/19 00:04 CBC WITH DIFFERENTIAL Ordered. EDMS 00:04 BASIC METABOLIC PROFILE Ordered. EDMS 00:04 PHYSICAL THERAPY EVAL & TREAT ordered. EDMS 00:05 Admission / Observation Status ordered. EDMS 03:17 LACTIC ACID LEVEL, LACTATE Ordered. EDMS 06:06 MRI Brain without Contrast Ordered. EDMS 06:06 MRA BRAIN W/O CONTRAST Ordered. EDMS 06:40 HEMOGLOBIN A1C Ordered. EDMS 06:50 Chest, 1 view Ordered. EDMS 06:50 Hip,AP,LAT to include Pelvis Ordered. EDMS 07:04 ECHOCARD,DOPPLER/COLOR FLOW ordered. EDMS 07:54 Spine, Cervical Ordered. EDMS 07:54 Spine. Lumbosacral, complete Ordered. EDMS 07:54 Spine, Thoracic 3 VIEWS Ordered. EDMS 09:30 T-Sheet-- Draft Copy was scanned into wumo and attached to record. [facility] 11:46 NPO DIET ordered. EDMS Administered Medications: 05/18 23:38 Drug: NS 0.9% 1000 ml [sodium chloride 0.9 % intravenous solution] Route: IV; Rate: tm5 bolus; Site: left forearm; 05/19 00:45 Follow up: IV Status: Completed infusion; IV Intake: 1000ml tm5 05/18 23:38 Drug: Enalaprilat 2.5 mg [enalaprilat 1.25 mg/mL intravenous solution] Route: IV; Rate: tm5 calculated rate; Site: left forearm; 05/19 00:12 Follow up: Response: No Adverse Reaction; No significant change. tm5 00:20 Follow up: Response: Blood pressure is improved; No Adverse Reaction tm5 Critical Care Time: 05/18 23:20 Critical care time: Bedside Care: 120 minutes. Total time: 120 minutes cs11 Signatures: Dispatcher [facility] Yakelin AlegriaRN David Moffett DO DO cs11 Treva Vargas RN RN ttb Abare, Karen, RN RN kaa Stanton, Hillary, Reg Reg hs2 Amaris Springer TonyaRN RN tm5 The chart was reviewed and I authenticate all verbal orders and agree with the evaluation and treatment provided.Corrections: (The following items were deleted from the chart) 22:10 22:00 CT Chest without contrast+CT ordered. EDND EDMS 22:12 22:11 Accucheck ordered. tm5 tm5 05/19 07:29 06:40 CARDIAC RISK PROFILE ordered. EDND EDMS 07:29 06:40 CREATINE PHOSPHOKINASE ordered. EDMS EDMS 07:29 06:40 TROPONIN ordered. EDMS EDMS 07:38 05/18 22:12 CARDIAC INJURY PROFILE+LAB ordered. EDMS EDMS 05/19 07:38 05/18 22:12 TROPONIN+LAB ordered. EDMS EDMS 05/19 07:38 05/18 23:05 CARDIAC INJURY PROFILE+LAB reviewed. [facility] EDMS 05/19 07:38 05/18 23:05 TROPONIN+LAB reviewed. [facility] EDMS 05/19 07:39 07:29 CREATINE PHOSPHOKINASE ordered. EDMS EDMS 07:39 07:29 CARDIAC RISK PROFILE ordered. EDMS EDMS 07:39 07:29 TROPONIN ordered. EDMS EDMS 08:00 06:50 Spine, entire 2 view Ap, Lat ordered. EDMS EDMS 09:39 08:55 MAGNESIUM LEVEL ordered. EDMS EDMS 11:18 00:14 MRI Brain without Contrast ordered. EDMS EDMS 11:18 00:14 MRA BRAIN W/O CONTRAST ordered. EDMS EDMS 11:45 00:05 OTHER CUSTOM DIETS ordered. EDND EDMS : 05/18 23:41 [facility] Payment Agreement hs2 05/19 09:30 T-Sheet-- Draft Copy [facility] VÍCTOR
[2016-05-19 13:46] VITALS: BP 155/69
[2016-05-19] MEDS: D5W/0.45% SODIUM CHLORIDE 1,000 ML IV SCH (14:01)
[2016-05-19] MEDS: KCL 10MEQ IN 100ML SWI (KRUN) 10 MEQ in APPROPRIATE DILUENT 1 EA IV SCH ×6 (14:06→18:53)
[2016-05-19 16:00] VITALS: BP 148/69
--- NOTE | 2016-05-19 17:40 | REPUSA ---
CLINICAL HISTORY: -FALL/STROKE TECHNIQUE: MRI of the brain was performed without administration of intravenous contrast material. T1 spine echo, T2 fast spin echo , DWI and FLAIR sequences were obtained in sagittal, axial and coronal planes. FINDINGS: The sella and parasellar regions are unremarkable in appearance. The corpus callosum and cerebellar t onsils are of normal configuration and position. There are no intra or extra-axial collections. There is no mass effect or midline shift. There is no evidence of hematoma formation. There is no hydrocep halus. The brain stem shows no mass effects, infarcts or hemorrhage. There are no cerebellopontine tumors. T he acoustic nerves are symmetrical. No cerebellar intra-axial pathology delineated. The fourth ventri jeramy and aqueduct are normal. No abnormalities of the optic nerves are identified. No dural or subdura l masses or collections are detected. There is no evidence of restricted diffusion. There is evidence for generalized symmetrical dilatation of the ventricles and cortical sulci consist ent with parenchymal atrophy. There are bilateral periventricular and subcortical T2 and FLAIR hyperintensities extending into cent rum [place] compatible with severe chronic white matter ischemic disease. Right temporal and several millimeters using compatible with an old infarct. The visualized arterial structures demonstrate normal appearing flow voids. The VII and VIII nerve bu ndles are visualized and are unremarkable in appearance. Mucosal thickening is seen involving bilateral ethmoid and maxillary sinuses compatible with chronic sinusitis. IMPRESSION: 1. Generalized age-appropriate parenchymal atrophy. 2. Bilateral periventricular and subcortical white matter severe chronic ischemic changes. Old right temporal infarct 3. Chronic ethmoid and maxillary sinusitis. 4. No evidence of acute intracranial pathology. Thank you for your kind referral of this patient.
--- NOTE | 2016-05-19 17:40 | REPUSA ---
CLINICAL HISTORY: -FALL/STROKE TECHNIQUE: Three dimensional ckea-ca-ssiawr angiography is performed of the [place]. The emily dy was performed without IV contrast agent. FINDINGS: The supraclinoid portions of the internal carotid arteries are of normal shape. The normal bifurcation is seen. The middle cerebral arteries are unremarkable in appearance. The posterior circu lation is visualized and shows no evidence of occlusion or aneurysm formation. The basilar tip is see n and shows no aneurysm formation. There is no evidence of beading to suggest vasculitis. IMPRESSION: MRA of the [place] is within normal limits. Thank you for your kind referral of this patient.
[2016-05-19] MEDS: ATORVASTATIN 20 MG TAB PO SCH (17:43)
[2016-05-19 20:51] VITALS: BP 138/61
[2016-05-19 21:40] VITALS: BP 150/84
[2016-05-20 06:00] VITALS: BP 139/77
[2016-05-20 06:00] LABS: BASO % 0.3 % (0.0-1.0); EOS % 0.8 % (0.0-3.0); LARGE UNSTAINED CELL # 0.1 K/mm3 (0.0-0.4); LARGE UNSTAINED CELL % 2.4 % (0.0-4.0); LYMPH # 1.3 K/mm3 (1.5-4.5); LYMPH % 25.4 % (24.0-44.0); MEAN CORPUSCULAR HGB CONC 33.8 g/dl (32.0-36.5); MEAN CORPUSCULAR VOLUME 91.5 fl (80.0-96.0); MONO # 0.3 K/mm3 (0.0-0.8); MONO % 4.9 % (0.0-5.0); NEUTROPHILS # 3.4 K/mm3 (1.8-7.7); NEUTROPHILS % 66.1 % (36.0-66.0); PLATELET COUNT, AUTOMATED 174 k/mm3 (150-450); RED CELL DISTRIBUTION WIDTH 12.7 % (11.5-14.5); WHITE BLOOD COUNT 5.1 K/mm3 (4.0-10.0)
[2016-05-20 06:30] LABS: ANION GAP 7 MEQ/L (8-16); BLOOD UREA NITROGEN 11 MG/DL (7-18); CALCIUM LEVEL 8.5 MG/DL (8.8-10.2); CARBON DIOXIDE LEVEL 27 MEQ/L (21-32); CHLORIDE LEVEL 111 MEQ/L (98-107); CREATININE FOR GFR 0.88 MG/DL (0.55-1.02); GLOMERULAR FILTRATION RATE > 60.0 (>45); GLUCOSE, FASTING 99 MG/DL (80-110); MAGNESIUM LEVEL 1.9 MG/DL (1.8-2.4); POTASSIUM SERUM 3.6 MEQ/L (3.5-5.1); SODIUM LEVEL 145 MEQ/L (136-145)
[2016-05-20] MEDS: amLODIPine 5 MG TAB PO SCH ×2 (09:45→20:37)
[2016-05-20] MEDS: PANTOPRAZOLE 40MG TAB (PROTONIX) PO SCH (09:45)
[2016-05-20] MEDS: ATORVASTATIN 20 MG TAB PO SCH (09:45)
[2016-05-20] MEDS: ASPIRIN 81 MG ENTERIC TAB PO SCH (09:45)
[2016-05-20] MEDS: SENOKOT S TAB PO SCH ×2 (09:46→20:37)
[2016-05-20] MEDS: ENOXAPARIN 40 MG/0.4 ML SYRINGE (J1650) SC SCH (09:46)
[2016-05-20] MEDS: D5W/0.45% SODIUM CHLORIDE 1,000 ML IV SCH (09:46)
[2016-05-20] MEDS: LABETALOL 200 MG TAB PO SCH ×2 (09:46→20:37)
[2016-05-20 14:00] VITALS: BP 129/60
--- NOTE | 2016-05-20 15:09 | IPN ---
DATE: 05/20/2016 SUBJECTIVE: This morning, the patient does not answer questions and does not speak to me, where previously she did. She looks at me and attempts to speak but I am not able to determine what she is saying. OBJECTIVE: VITAL SIGNS: Temperature 98.1, pulse 74, respiratory rate 18, blood pressure 139/77, oxygen saturation 97% on room air. GENERAL: She is a pleasant, elderly, -[place]olese female laying in bed on her right side. She does not appear to be in any discomfort whatsoever. HEENT: It appears as though she has a left-sided facial droop. Pupils are equal, round, and reactive to light. She has moist mucous membranes. No elevation in her central venous pressure. CARDIOVASCULAR: S1, S2, regular. RESPIRATORY: Clear. ABDOMEN: Benign. EXTREMITIES: She has weakness on her right upper and lower extremity but spontaneously moves all four extremities. LABORATORY STUDIES: WBC 5.1, hemoglobin 11.1, hematocrit 32.7, platelet count 174. Chemistry panel: Sodium 145, potassium 3.6, chloride 111, bicarbonate 27, BUN 11, creatinine 0.8, magnesium 1.9, lipid panel with quite a low LDL and elevated HDL, a TSH within normal limits, a hemoglobin A1c of 5.2, negative troponin. Urinalysis which without symptoms is not suggestive of a urinary tract infection. A urine culture is pending. IMAGING STUDIES: The patient had a cervical spine x-ray which revealed multilevel age-related degenerative changes. No acute fracture or compression injury. She had a lumbar spine x-ray that revealed mild anterolisthesis at L4-5 level. No fracture. A thoracic spine x-ray showed no acute fracture. Chest x-ray showed trace left basilar atelectasis. Hip and pelvis x-ray showed age-related changes. No acute fracture or dislocation. MRI of the brain showed generalized age appropriate parenchymal atrophy, bilateral periventricular and subcortical white matter, severe chronic ischemic changes, old right temporal infarct. No evidence of acute intracranial pathology. MRA of the [place] was within normal limits. A CT scan of the head at the patient's time of arrival revealed severe cerebellar and cerebral atrophy, severe chronic microvascular disease, old right temporal infarct. ASSESSMENT AND PLAN: This is a 60-year-old female who presented with dysarthria. 1. Dysarthria. There is concern for a cerebrovascular accident (CVA). The patient certainly has evidence of previous CVA. She may have had a transient ischemic attack (TIA). The patient herself tells me that she has had several strokes in the past and feels like she had a stroke yesterday. The patient also yesterday was engaged in extensive conversations at bedside for greater than one hour. At that point, she did say that she wished to continue all current therapy. She did not want to be comfort measures. She was willing to participate with physical therapy, occupational therapy, and speech therapy. She was okay with getting an MRI and echocardiogram and being evaluated by neurology. These were all discussed explicitly with the patient's daughter at bedside. Today, the patient does not wish to speak with me. However, she is clearly awake and understanding, as she nods yes or no to answer questions. She may have suffered a TIA, in which I hope her symptoms will improve. Dr. Kyle of neurology's help is greatly appreciated. She has been ordered for an EEG as well. Patient and family services (PFS) consultation has been placed. The patient will likely require placement. For the time being, the patient remains nothing by mouth. As we are unable to obtain a speech evaluation and she does have dysarthria, I am concerned about her swallow capabilities. 2. Hypertension, poorly controlled. The patient was poorly hypertensive when she arrived. She has been started on labetalol and Norvasc. Old records indicate she was previously on labetalol. 3. Depression. The patient normally takes venlafaxine. However, the dose was unknown. As such, it was not continued upon admission. 4. Asthma. The patient is at her baseline respiratory status. 5. Dehydration. At the time of admission, she did receive some gentle fluids and this has resolved. 6. Rhabdomyolysis, very mild, resolved. 7. Lactic acidosis, likely secondary to being down, resolved. 8. Deep vein thrombosis (DVT) prophylaxis. Lovenox. 9. Gastrointestinal (GI) prophylaxis. Protonix.
--- NOTE | 2016-05-20 15:42 | CR ---
DATE OF CONSULTATION: 05/19/2016 REFERRING PHYSICIAN: Dr. Paulino Herrmann REASON FOR CONSULTATION: Fall and possible loss of consciousness. HISTORY OF PRESENT ILLNESS: Gaye Mata is 60-year-old woman who lives alone in an apartment and has a history of right sided hemiparesis causing right arm and leg weakness in coordination and difficulty walking. She is supposed to use a walker, but does not use it. She was found at the bottom of the stairs in her apartment and emergency services were called. Patient was found laying at the bottom and had difficulty communicating. It was thought that she may be having a stroke and altered mental status. She was brought to [facility]. She stated that she could not remember how she ended up on the floor. She is not sure whether she lost consciousness. She felt it was more difficulty for her to speak. During of her fall and being on the floor is unknown. She denies any headache, neck pain, or back pain. She denies any chest pain or shortness of breath. PAST MEDICAL HISTORY: History of stroke effecting right side, depression, hypertension, asthma, unsteady gait. ALLERGIES: None. HOME MEDICATIONS: - aspirin 81 mg by mouth daily - Lipitor 40 mg by mouth daily - Lovenox 40 mg subcutaneous daily which was added in the hospital - labetalol 200 mg by mouth twice a day - amlodipine 5 mg by mouth twice a day SOCIAL HISTORY: She denies smoking, alcohol, or illicit drugs. FAMILY HISTORY: Unobtainable. REVIEW OF SYSTEMS: All systems are reviewed and were found to be noncontributory except as mentioned in the history of present illness. PHYSICAL EXAMINATION: Blood pressure 208/106, pulse 101, respiratory 20, temperature 98.3. HEART: Regular rate and rhythm. LUNGS: Clear to auscultation. ABDOMEN: Soft, nontender, nondistended. NEUROLOGICAL EXAM: Patient is awake, alert, mildly oriented to self mostly. She thinks that she is in the emergency department where she came yesterday. She is not able to tell me the month, year, name of hospital, name of president. She is able to tell me name of state. She has difficulty in her partition of her speech. She has mild difficulty with expressive and acceptive parts of her speech. Extraocular muscles are intact. No facial weakness. Tongue and uvula are midline. Patient had difficulty understanding and following commands. She seems to be moving all four extremities equally well. Further cerebellar and sensory examination could not be performed. Gait was not tested. ASSESSMENT: 1. Fall and difficulty speaking. 2. History of right hemiparesis and she may very well have history of mild expressive aphasia in past. 3. There is concern for new cerebral vascular accident/stroke. PLAN: 1. MRI and MRA brain. 2. Carotid ultrasound. 3. Echocardiogram. 4. Aspirin 81 mg by mouth daily and Lipitor 40 mg by mouth daily. 5. Lovenox 40 mg subcutaneous daily and continue management of her hypertension. Keep systolic blood pressure below 180. 6. Physical and occupational therapy and rehabilitation.
[2016-05-20 16:45] LABS: VITAMIN B12 LEVEL 622 PG/ML (247-911)
[2016-05-20 22:00] VITALS: BP 159/75
[2016-05-21] MEDS: D5W/0.45% SODIUM CHLORIDE 1,000 ML IV SCH (04:00)
[2016-05-21 06:00] VITALS: BP 154/80
[2016-05-21 06:40] LABS: BASO % 0.3 % (0.0-1.0); EOS % 0.4 % (0.0-3.0); LARGE UNSTAINED CELL # 0.1 K/mm3 (0.0-0.4); LARGE UNSTAINED CELL % 1.2 % (0.0-4.0); LYMPH # 0.8 K/mm3 (1.5-4.5); LYMPH % 11.9 % (24.0-44.0); MEAN CORPUSCULAR HEMOGLOBIN 31.1 pg (27.0-33.0); MEAN CORPUSCULAR HGB CONC 34.1 g/dl (32.0-36.5); MEAN CORPUSCULAR VOLUME 91.3 fl (80.0-96.0); MONO # 0.2 K/mm3 (0.0-0.8); MONO % 3.4 % (0.0-5.0); NEUTROPHILS # 5.5 K/mm3 (1.8-7.7); NEUTROPHILS % 82.8 % (36.0-66.0); PLATELET COUNT, AUTOMATED 181 k/mm3 (150-450); RED CELL DISTRIBUTION WIDTH 12.6 % (11.5-14.5); WHITE BLOOD COUNT 6.7 K/mm3 (4.0-10.0)
[2016-05-21 07:01] LABS: ANION GAP 9 MEQ/L (8-16); BLOOD UREA NITROGEN 9 MG/DL (7-18); CALCIUM LEVEL 8.5 MG/DL (8.8-10.2); CARBON DIOXIDE LEVEL 27 MEQ/L (21-32); CHLORIDE LEVEL 107 MEQ/L (98-107); CREATININE FOR GFR 0.84 MG/DL (0.55-1.02); GLOMERULAR FILTRATION RATE > 60.0 (>45); GLUCOSE, FASTING 106 MG/DL (80-110); MAGNESIUM LEVEL 1.8 MG/DL (1.8-2.4); POTASSIUM SERUM 3.6 MEQ/L (3.5-5.1); SODIUM LEVEL 143 MEQ/L (136-145)
[2016-05-21] MEDS: AMOXICILLIN 875 MG TAB PO SCH ×2 (09:00→20:58)
[2016-05-21] MEDS: ENOXAPARIN 40 MG/0.4 ML SYRINGE (J1650) SC SCH (10:02)
[2016-05-21] MEDS: ATORVASTATIN 20 MG TAB PO SCH (10:03)
[2016-05-21] MEDS: PANTOPRAZOLE 40MG TAB (PROTONIX) PO SCH (10:03)
[2016-05-21] MEDS: amLODIPine 5 MG TAB PO SCH ×2 (10:03→20:58)
[2016-05-21] MEDS: LABETALOL 200 MG TAB PO SCH ×2 (10:03→20:58)
[2016-05-21] MEDS: ASPIRIN 81 MG ENTERIC TAB PO SCH (10:03)
[2016-05-21] MEDS: SENOKOT S TAB PO SCH ×2 (10:03→21:00)
--- NOTE | 2016-05-21 12:35 | IPN ---
DATE OF SERVICE: 05/21/2016 A 60-year-old female seen at bedside. No overnight issues reported. However, yesterday, apparently she did slide on to her bottom from a seated position, and no reported injuries were observed. According to the nursing staff, she appears to be a little more alert today. OBJECTIVE: Temperature is 97.5, pulse 92, respiratory rate 16, blood pressure (BP) 154/80, SpO2 is 98% on room air. General: The patient appears to be in no acute distress. She does appear to be alert but confused. HEENT: Head is atraumatic, normocephalic. Eyes: Pupils equal, round, reactive to light and accommodation. Throat clear. Lungs: Clear. Heart: Regular rate and rhythm. Abdomen: Soft. Extremities: No edema. No calf tenderness. Cranial nerves grossly appear to be intact with no deficits. LABORATORIES: White count 6.7, hemoglobin 11.9, platelets 181,000. Sodium is 143, potassium 3.6, chloride 107, bicarbonate 27, anion gap 9, BUN is 9, creatinine 0.84, glucose is 106, calcium 8.5, magnesium 1.8. Urine culture from 05/09/2016 did show aerococcus with colony count greater than 100,000. MRI of the brain: Generalized age-appropriate parenchymal atrophy with bilateral paraventricular and subcortical white matter, severe chronic ischemic changes, old right temporal infarct, chronic ethmoid maxillary sinusitis. No evidence of acute intracranial pathology. MRA of the brain: No evidence of AV malformation. ASSESSMENT AND PLAN: 1. Dysarthria. Concern for cerebrovascular accident (CVA) versus transient ischemic attack (TIA). No apparent evidence on MRI, MRA of any acute findings. Electroencephalogram (EEG) is pending, as well as 2-D echocardiogram. Appreciate Dr. Kyle's input. She continues on aspirin and Lipitor. 2. Altered mental status with possible underlying metabolic encephalopathy. She shows some slow improvement. Her urine culture was positive for aerococcus with greater than 100,000 colony count. Due to the unexplained metabolic encephalopathy, will go ahead and treat her for a urinary tract infection and start her on amoxicillin for the next 3 days. 3. Hypertension. Will continue to modify her blood pressure medications with hold parameters. 4. Depression, stable. No signs of audiovisual hallucination or suicidal ideation. Apparently, she takes venlafaxine. Will try to make sure that this dosing is checked through pharmacy. 5. Asthma, stable. 6. Dehydration. She did receive some gentle fluid rehydration. This appears resolved. 7. Rhabdomyolysis, resolved. 8. Lactic acidosis, most likely secondary to rhabdomyolysis and dehydration. 9. Apparently, gastrointestinal (GI) prophylaxis was started on admission. However, she is not critically ill. Will go and discontinue any proton pump inhibitors (PPIs) 10. Deep venous thrombosis (DVT) prophylaxis. Continue on Lovenox. DISPOSITION: She did pass a swallow evaluation but was recommended nectar-thickened liquids. Will see if she can progress with improvement with her metabolic encephalopathy. I did discuss her clinical findings and some mild improvement with her family members. Will continue her on telemetry for at least another 24 hours, and I do suspect that she will show some slow improvement. Hopefully, will see how she does on the amoxicillin to see if this improves with possible symptomatology related to an underlying urinary tract infection.
[2016-05-21 14:00] VITALS: BP 138/66
--- NOTE | 2016-05-21 14:02 | EDDOCDS ---
Physician Documentation [facility] Name: Gaye Mata Age: 60 yrs Sex: Female : 1955 Arrival Date: 05/18/2016 Time: 21:48 Bed 15 Private MD: Unknown Pcp Disposition: 05/18 23:20 Critical Care:. cs11 Disposition: 05/18/16 23:14 Hospitalization ordered by Amy Markham for Inpatient Admission. Preliminary diagnosis are Altered mental status, unspecified, Dysarthria following other cerebrovascular disease, Hypertensive encephalopathy. - Bed requested for PCU. - Status is Inpatient Admission. pml - Condition is Stable. - Problem is an ongoing problem. - Symptoms are unchanged. Historical: - Allergies: Unable to obtain; - Home Meds: 1. Unknown - PMHx: Unable to obtain; - PSHx: Unable to obtain; - Social history: Not able to communicate due to their condition, Smoking status: unknown if patient ever smoked tobacco. - Family history: Not pertinent. - : Unable to assess if pt is on anticoagulants. Unable to Verify Home Med List with the patient / caregiver. - Exposure Risk Screening:: Unable to Assess. Vital Signs: 21:55 Resp 20; ttb 22:05 BP 208 / 106; Pulse 101; Resp 20 S; Temp 98.3(TE); Pulse Ox 98% on R/A; Weight 68.04 kg tm5 / 150 lbs; Height 5 ft. 4 in. (162.56 cm); Pain 0/10; 23:05 BP 184 / 95 (auto/); tm5 23:05 Pulse 80 MON; Pulse Ox 96% ; tm5 23:13 BP 173 / 91 (auto/); tm5 23:13 Pulse 74 MON; Pulse Ox 96% ; tm5 23:28 BP 182 / 93 (auto/); tm5 23:28 Pulse 76 MON; Resp 18 S; Pulse Ox 97% on R/A; Pain 0/10; tm5 23:37 BP 191 / 95 (auto/); tm5 23:37 Pulse 96 MON; Resp 20 S; Pulse Ox 98% on R/A; Pain 0/10; tm5 23:43 BP 207 / 98 (auto/); tm5 23:43 Pulse 92 MON; Pulse Ox 95% on R/A; tm5 23:43 BP 210 / 110; Pulse 90; Resp 20 S; Pulse Ox 96% on R/A; Pain 0/10; tm5 / 00:13 BP 200 / 102 (auto/); tm5 00:13 Pulse 88 MON; Pulse Ox 96% ; tm5 00:28 BP 180 / 98 (auto/); tm5 00:28 Pulse 84 MON; Resp 18 S; Pulse Ox 95% on R/A; Pain 0/10; tm5 00:53 BP 199 / 95 (auto/); tm5 00:53 Pulse 106 MON; Resp 18 S; Pulse Ox 98% on R/A; Pain 0/10; tm5 01:13 BP 171 / 88 (auto/); tm5 01:13 Pulse 84 MON; Pulse Ox 97% ; tm5 01:28 BP 163 / 85 (auto/); tm5 01:28 Pulse 80 MON; Pulse Ox 97% ; tm5 01:43 Pulse 82 MON; Pulse Ox 97% ; tm5 01:43 BP 185 / 90 (auto/); tm5 01:58 BP 175 / 91 (auto/); tm5 01:58 Pulse 86 MON; Resp 18 S; Pulse Ox 95% on R/A; Pain 0/10; tm5 02:13 BP 157 / 79 (auto/); tm5 02:13 Pulse 78 MON; tm5 02:28 BP 130 / 67 (auto/); tm5 02:28 Pulse 74 MON; tm5 02:43 BP 135 / 70 (auto/); tm5 02:43 Pulse 76 MON; Resp 16 S; Pulse Ox 96% on R/A; Pain 0/10; tm5 02:58 BP 131 / 66 (auto/); tm5 02:58 Pulse 76 MON; Resp 16 S; Pulse Ox 97% on R/A; tm5 03:13 BP 139 / 74 (auto/); tm5 03:13 Pulse 80 MON; Resp 20 S; Pulse Ox 98% on R/A; Pain 0/10; tm5 06:23 BP 149 / 74 (auto/); pml 06:24 Pulse 80 MON; Pulse Ox 97% ; pml 06:26 BP 149 / 74; Pulse 82; Resp 20; Temp 96.5(T); Pulse Ox 98% on R/A; Pain 0/10; jmv 07:03 BP 132 / 75 (auto/); pml 07:04 Pulse 76 MON; Pulse Ox 97% ; pml 07:17 BP 126 / 68 (auto/); pml 07:18 Pulse 64 MON; Pulse Ox 95% ; pml 07:32 BP 136 / 71 (auto/); pml 07:33 Pulse 62 MON; Pulse Ox 98% ; pml 07:47 BP 130 / 70 (auto/); pml 07:48 Pulse 62 MON; Pulse Ox 97% ; pml 08:02 BP 127 / 63 (auto/); pml 08:03 Pulse 60 MON; Pulse Ox 98% ; pml 08:17 BP 136 / 75 (auto/); pml 08:18 Pulse 74 MON; Pulse Ox 98% ; pml 08:32 BP 154 / 84 (auto/); pml 08:32 Pulse 76 MON; Pulse Ox 99% ; pml 08:47 BP 130 / 69 (auto/); pml 08:48 Pulse 76 MON; pml 09:02 BP 128 / 69 (auto/); pml 09:02 BP 128 / 69 (auto/); pml 09:03 Pulse 74 MON; pml 09:11 Pulse 68 MON; pml 09:17 Pulse 64 MON; Pulse Ox 97% ; pml 09:17 BP 97 / 53 (auto/); pml 09:32 Pulse 64 MON; Pulse Ox 97% ; pml 09:32 BP 114 / 61 (auto/); pml 09:47 Pulse 62 MON; Pulse Ox 97% ; pml 09:47 BP 115 / 60 (auto/); pml 10:02 Pulse 62 MON; Pulse Ox 97% ; pml 10:02 BP 119 / 65 (auto/); pml 10:17 Pulse 66 MON; Pulse Ox 98% ; pml 10:17 BP 116 / 63 (auto/); pml 10:31 Pulse 64 MON; Pulse Ox 98% ; pml 10:32 BP 128 / 64 (auto/); pml 10:47 Pulse 60 MON; Pulse Ox 98% ; pml 10:47 BP 120 / 60 (auto/); pml 11:02 Pulse 62 MON; Pulse Ox 98% ; pml 11:02 BP 120 / 63 (auto/); pml 11:17 Pulse 72 MON; Pulse Ox 98% ; pml 11:17 BP 133 / 69 (auto/); pml 11:32 Pulse 80 MON; pml 11:32 BP 135 / 70 (auto/); pml 11:46 Pulse 74 MON; pml 11:47 BP 135 / 71 (auto/); pml 12:02 Pulse 76 MON; Pulse Ox 99% ; pml 12:02 BP 150 / 82 (auto/); pml 12:58 BP 119 / 67; Pulse 72; Resp 18; Temp 97.9; Pulse Ox 99% ; Pain 0/10; pml 05/18 22:05 Body Mass Index 25.75 (68.04 kg, 162.56 cm) tm5 MDM: 05/18 21:57 ECG WITH READING ER PHYS+CARDIAG ordered. EDMS 22:06 CT Head Without Contrast Ordered. EDMS 22:11 Warehouse Consultant/Pulse Ox/q 15 min VS ordered. tm5 22:11 Oxygen at 4L/Min NC or Home dosage ordered. tm5 22:11 Rhythm Strip to chart ordered. tm5 22:11 IV Saline Lock ordered. tm5 22:12 CBC with Diff Ordered. EDMS 22:12 Liver Profile Ordered. EDMS 22:12 MED Profile Ordered. EDMS 22:12 Thyroid Stimulating Hormone Ordered. EDMS 22:12 Acetaminophen Level Ordered. EDMS 22:12 Drug Eval Toxicology ED Only Ordered. EDMS 22:12 Salicylate Level Ordered. EDMS 22:12 Lactic Acid (Bledsoe tube on ice) Ordered. EDMS 23:05 Liver Profile Reviewed. cs11 23:05 MED Profile Reviewed. cs11 23:05 Acetaminophen Level Reviewed. cs11 23:05 Salicylate Level Reviewed. cs11 23:05 Lactic Acid (Bledsoe tube on ice) Reviewed. cs11 23:05 CBC with Diff Reviewed. cs11 23:05 Thyroid Stimulating Hormone Reviewed. cs11 23:05 NS 0.9% 1000 ml IV at bolus once ordered. cs11 23:06 Mckeon ordered. cs11 23:08 Urinalysis Ordered. EDMS 23:08 Urine Culture Ordered. EDMS 23:13 Enalaprilat 2.5 mg IV at calculated rate once; Administer over 5 minutes ordered. cs11 23:15 BED REQUEST+ADM ordered. EDMS 23:41 Financial registration complete. hs2 23:41 [facility] Payment Agreement was scanned into [email or web address] and attached to record. hs2 05/19 00:04 CBC WITH DIFFERENTIAL Ordered. EDMS 00:04 BASIC METABOLIC PROFILE Ordered. EDMS 00:04 PHYSICAL THERAPY EVAL & TREAT ordered. EDMS 00:05 Admission / Observation Status ordered. EDMS 03:17 LACTIC ACID LEVEL, LACTATE Ordered. EDMS 06:06 MRI Brain without Contrast Ordered. EDMS 06:06 MRA BRAIN W/O CONTRAST Ordered. EDMS 06:40 HEMOGLOBIN A1C Ordered. EDMS 06:50 Chest, 1 view Ordered. EDMS 06:50 Hip,AP,LAT to include Pelvis Ordered. EDMS 07:04 ECHOCARD,DOPPLER/COLOR FLOW ordered. EDMS 07:54 Spine, Cervical Ordered. EDMS 07:54 Spine. Lumbosacral, complete Ordered. EDMS 07:54 Spine, Thoracic 3 VIEWS Ordered. EDMS 09:30 T-Sheet-- Draft Copy was scanned into [email or web address] and attached to record. [facility] 11:46 NPO DIET ordered. EDMS 05/20 08:04 ECG/EKG was scanned into [email or web address] and attached to record. gb Administered Medications: 05/18 23:38 Drug: NS 0.9% 1000 ml [sodium chloride 0.9 % intravenous solution] Route: IV; Rate: tm5 bolus; Site: left forearm; 05/19 00:45 Follow up: IV Status: Completed infusion; IV Intake: 1000ml tm5 05/18 23:38 Drug: Enalaprilat 2.5 mg [enalaprilat 1.25 mg/mL intravenous solution] Route: IV; Rate: tm5 calculated rate; Site: left forearm; 05/19 00:12 Follow up: Response: No Adverse Reaction; No significant change. tm5 00:20 Follow up: Response: Blood pressure is improved; No Adverse Reaction tm5 Critical Care Time: 05/18 23:20 Critical care time: Bedside Care: 120 minutes. Total time: 120 minutes cs11 Signatures: Dispatcher [employer] EDTX Richa Lee, Reg Reg gb Yakelin AlegriaRN David Moffett DO DO cs11 Treva Vargas RN RN ttb Abare, Karen, RN RN kaa Stanton, Hillary, Reg Reg hs2 Amaris Springer TonyaRN RN tm5 The chart was reviewed and I authenticate all verbal orders and agree with the evaluation and treatment provided.Corrections: (The following items were deleted from the chart) 22:10 22:00 CT Chest without contrast+CT ordered. EDTX EDTX 22:12 22:11 Accucheck ordered. tm5 tm5 05/19 07:29 06:40 CARDIAC RISK PROFILE ordered. EDMS EDMS 07:29 06:40 CREATINE PHOSPHOKINASE ordered. EDMS EDMS 07:29 06:40 TROPONIN ordered. EDMS EDMS 07:38 05/18 22:12 CARDIAC INJURY PROFILE+LAB ordered. EDMS EDMS 05/19 07:38 05/18 22:12 TROPONIN+LAB ordered. EDMS EDMS 05/19 07:38 05/18 23:05 CARDIAC INJURY PROFILE+LAB reviewed. cs11 EDMS 05/19 07:38 05/18 23:05 TROPONIN+LAB reviewed. cs11 EDMS 05/19 07:39 07:29 CREATINE PHOSPHOKINASE ordered. EDMS EDMS 07:39 07:29 CARDIAC RISK PROFILE ordered. EDMS EDMS 07:39 07:29 TROPONIN ordered. EDMS EDMS 08:00 06:50 Spine, entire 2 view Ap, Lat ordered. EDMS EDMS 09:39 08:55 MAGNESIUM LEVEL ordered. EDMS EDMS 11:18 00:14 MRI Brain without Contrast ordered. EDMS EDMS 11:18 00:14 MRA BRAIN W/O CONTRAST ordered. EDMS EDMS 11:45 00:05 OTHER CUSTOM DIETS ordered. EDMS EDMS : 05/18 23:41 [facility] Payment Agreement hs2 05/19 09:30 T-Sheet-- Draft Copy [facility] 05/20 08:04 ECG/EKG gb Chart Complete MTDD
--- NOTE | 2016-05-21 14:02 | EDDOCDS ---
Physician Documentation [facility] Name: Gaye Mata Age: 60 yrs Sex: Female : 1955 Arrival Date: 05/18/2016 Time: 21:48 Bed 15 Private MD: Unknown Pcp Disposition: 05/18 23:20 Critical Care:. cs11 Disposition: 05/18/16 23:14 Hospitalization ordered by Amy Markham for Inpatient Admission. Preliminary diagnosis are Altered mental status, unspecified, Dysarthria following other cerebrovascular disease, Hypertensive encephalopathy. - Bed requested for PCU. - Status is Inpatient Admission. pml - Condition is Stable. - Problem is an ongoing problem. - Symptoms are unchanged. Historical: - Allergies: Unable to obtain; - Home Meds: 1. Unknown - PMHx: Unable to obtain; - PSHx: Unable to obtain; - Social history: Not able to communicate due to their condition, Smoking status: unknown if patient ever smoked tobacco. - Family history: Not pertinent. - : Unable to assess if pt is on anticoagulants. Unable to Verify Home Med List with the patient / caregiver. - Exposure Risk Screening:: Unable to Assess. Vital Signs: 21:55 Resp 20; ttb 22:05 BP 208 / 106; Pulse 101; Resp 20 S; Temp 98.3(TE); Pulse Ox 98% on R/A; Weight 68.04 kg tm5 / 150 lbs; Height 5 ft. 4 in. (162.56 cm); Pain 0/10; 23:05 BP 184 / 95 (auto/); tm5 23:05 Pulse 80 MON; Pulse Ox 96% ; tm5 23:13 BP 173 / 91 (auto/); tm5 23:13 Pulse 74 MON; Pulse Ox 96% ; tm5 23:28 BP 182 / 93 (auto/); tm5 23:28 Pulse 76 MON; Resp 18 S; Pulse Ox 97% on R/A; Pain 0/10; tm5 23:37 BP 191 / 95 (auto/); tm5 23:37 Pulse 96 MON; Resp 20 S; Pulse Ox 98% on R/A; Pain 0/10; tm5 23:43 BP 207 / 98 (auto/); tm5 23:43 Pulse 92 MON; Pulse Ox 95% on R/A; tm5 23:43 BP 210 / 110; Pulse 90; Resp 20 S; Pulse Ox 96% on R/A; Pain 0/10; tm5 / 00:13 BP 200 / 102 (auto/); tm5 00:13 Pulse 88 MON; Pulse Ox 96% ; tm5 00:28 BP 180 / 98 (auto/); tm5 00:28 Pulse 84 MON; Resp 18 S; Pulse Ox 95% on R/A; Pain 0/10; tm5 00:53 BP 199 / 95 (auto/); tm5 00:53 Pulse 106 MON; Resp 18 S; Pulse Ox 98% on R/A; Pain 0/10; tm5 01:13 BP 171 / 88 (auto/); tm5 01:13 Pulse 84 MON; Pulse Ox 97% ; tm5 01:28 BP 163 / 85 (auto/); tm5 01:28 Pulse 80 MON; Pulse Ox 97% ; tm5 01:43 Pulse 82 MON; Pulse Ox 97% ; tm5 01:43 BP 185 / 90 (auto/); tm5 01:58 BP 175 / 91 (auto/); tm5 01:58 Pulse 86 MON; Resp 18 S; Pulse Ox 95% on R/A; Pain 0/10; tm5 02:13 BP 157 / 79 (auto/); tm5 02:13 Pulse 78 MON; tm5 02:28 BP 130 / 67 (auto/); tm5 02:28 Pulse 74 MON; tm5 02:43 BP 135 / 70 (auto/); tm5 02:43 Pulse 76 MON; Resp 16 S; Pulse Ox 96% on R/A; Pain 0/10; tm5 02:58 BP 131 / 66 (auto/); tm5 02:58 Pulse 76 MON; Resp 16 S; Pulse Ox 97% on R/A; tm5 03:13 BP 139 / 74 (auto/); tm5 03:13 Pulse 80 MON; Resp 20 S; Pulse Ox 98% on R/A; Pain 0/10; tm5 06:23 BP 149 / 74 (auto/); pml 06:24 Pulse 80 MON; Pulse Ox 97% ; pml 06:26 BP 149 / 74; Pulse 82; Resp 20; Temp 96.5(T); Pulse Ox 98% on R/A; Pain 0/10; jmv 07:03 BP 132 / 75 (auto/); pml 07:04 Pulse 76 MON; Pulse Ox 97% ; pml 07:17 BP 126 / 68 (auto/); pml 07:18 Pulse 64 MON; Pulse Ox 95% ; pml 07:32 BP 136 / 71 (auto/); pml 07:33 Pulse 62 MON; Pulse Ox 98% ; pml 07:47 BP 130 / 70 (auto/); pml 07:48 Pulse 62 MON; Pulse Ox 97% ; pml 08:02 BP 127 / 63 (auto/); pml 08:03 Pulse 60 MON; Pulse Ox 98% ; pml 08:17 BP 136 / 75 (auto/); pml 08:18 Pulse 74 MON; Pulse Ox 98% ; pml 08:32 BP 154 / 84 (auto/); pml 08:32 Pulse 76 MON; Pulse Ox 99% ; pml 08:47 BP 130 / 69 (auto/); pml 08:48 Pulse 76 MON; pml 09:02 BP 128 / 69 (auto/); pml 09:02 BP 128 / 69 (auto/); pml 09:03 Pulse 74 MON; pml 09:11 Pulse 68 MON; pml 09:17 Pulse 64 MON; Pulse Ox 97% ; pml 09:17 BP 97 / 53 (auto/); pml 09:32 Pulse 64 MON; Pulse Ox 97% ; pml 09:32 BP 114 / 61 (auto/); pml 09:47 Pulse 62 MON; Pulse Ox 97% ; pml 09:47 BP 115 / 60 (auto/); pml 10:02 Pulse 62 MON; Pulse Ox 97% ; pml 10:02 BP 119 / 65 (auto/); pml 10:17 Pulse 66 MON; Pulse Ox 98% ; pml 10:17 BP 116 / 63 (auto/); pml 10:31 Pulse 64 MON; Pulse Ox 98% ; pml 10:32 BP 128 / 64 (auto/); pml 10:47 Pulse 60 MON; Pulse Ox 98% ; pml 10:47 BP 120 / 60 (auto/); pml 11:02 Pulse 62 MON; Pulse Ox 98% ; pml 11:02 BP 120 / 63 (auto/); pml 11:17 Pulse 72 MON; Pulse Ox 98% ; pml 11:17 BP 133 / 69 (auto/); pml 11:32 Pulse 80 MON; pml 11:32 BP 135 / 70 (auto/); pml 11:46 Pulse 74 MON; pml 11:47 BP 135 / 71 (auto/); pml 12:02 Pulse 76 MON; Pulse Ox 99% ; pml 12:02 BP 150 / 82 (auto/); pml 12:58 BP 119 / 67; Pulse 72; Resp 18; Temp 97.9; Pulse Ox 99% ; Pain 0/10; pml 05/18 22:05 Body Mass Index 25.75 (68.04 kg, 162.56 cm) tm5 MDM: 05/18 21:57 ECG WITH READING ER PHYS+CARDIAG ordered. EDMS 22:06 CT Head Without Contrast Ordered. EDMS 22:11 Pattern Maker/Pulse Ox/q 15 min VS ordered. tm5 22:11 Oxygen at 4L/Min NC or Home dosage ordered. tm5 22:11 Rhythm Strip to chart ordered. tm5 22:11 IV Saline Lock ordered. tm5 22:12 CBC with Diff Ordered. EDMS 22:12 Liver Profile Ordered. EDMS 22:12 MED Profile Ordered. EDMS 22:12 Thyroid Stimulating Hormone Ordered. EDMS 22:12 Acetaminophen Level Ordered. EDMS 22:12 Drug Eval Toxicology ED Only Ordered. EDMS 22:12 Salicylate Level Ordered. EDMS 22:12 Lactic Acid (Bledsoe tube on ice) Ordered. EDMS 23:05 Liver Profile Reviewed. cs11 23:05 MED Profile Reviewed. cs11 23:05 Acetaminophen Level Reviewed. cs11 23:05 Salicylate Level Reviewed. cs11 23:05 Lactic Acid (Bledsoe tube on ice) Reviewed. cs11 23:05 CBC with Diff Reviewed. cs11 23:05 Thyroid Stimulating Hormone Reviewed. cs11 23:05 NS 0.9% 1000 ml IV at bolus once ordered. cs11 23:06 Mckeon ordered. cs11 23:08 Urinalysis Ordered. EDMS 23:08 Urine Culture Ordered. EDMS 23:13 Enalaprilat 2.5 mg IV at calculated rate once; Administer over 5 minutes ordered. cs11 23:15 BED REQUEST+ADM ordered. EDMS 23:41 Financial registration complete. hs2 23:41 [facility] Payment Agreement was scanned into [employer] and attached to record. hs2 05/19 00:04 CBC WITH DIFFERENTIAL Ordered. EDMS 00:04 BASIC METABOLIC PROFILE Ordered. EDMS 00:04 PHYSICAL THERAPY EVAL & TREAT ordered. EDMS 00:05 Admission / Observation Status ordered. EDMS 03:17 LACTIC ACID LEVEL, LACTATE Ordered. EDMS 06:06 MRI Brain without Contrast Ordered. EDMS 06:06 MRA BRAIN W/O CONTRAST Ordered. EDMS 06:40 HEMOGLOBIN A1C Ordered. EDMS 06:50 Chest, 1 view Ordered. EDMS 06:50 Hip,AP,LAT to include Pelvis Ordered. EDMS 07:04 ECHOCARD,DOPPLER/COLOR FLOW ordered. EDMS 07:54 Spine, Cervical Ordered. EDMS 07:54 Spine. Lumbosacral, complete Ordered. EDMS 07:54 Spine, Thoracic 3 VIEWS Ordered. EDMS 09:30 T-Sheet-- Draft Copy was scanned into [employer] and attached to record. [facility] 11:46 NPO DIET ordered. EDMS 05/20 08:04 ECG/EKG was scanned into [employer] and attached to record. gb Administered Medications: 05/18 23:38 Drug: NS 0.9% 1000 ml [sodium chloride 0.9 % intravenous solution] Route: IV; Rate: tm5 bolus; Site: left forearm; 05/19 00:45 Follow up: IV Status: Completed infusion; IV Intake: 1000ml tm5 05/18 23:38 Drug: Enalaprilat 2.5 mg [enalaprilat 1.25 mg/mL intravenous solution] Route: IV; Rate: tm5 calculated rate; Site: left forearm; 05/19 00:12 Follow up: Response: No Adverse Reaction; No significant change. tm5 00:20 Follow up: Response: Blood pressure is improved; No Adverse Reaction tm5 Critical Care Time: 05/18 23:20 Critical care time: Bedside Care: 120 minutes. Total time: 120 minutes cs11 Signatures: Dispatcher [employer] EDVA Richa Lee, Reg Reg gb Yakelin lAegriaRN David Moffett DO DO cs11 Treva Vargas RN RN ttb Abare, Karen, RN RN kaa Stanton, Hillary, Reg Reg hs2 Amaris Springer TonyaRN RN tm5 The chart was reviewed and I authenticate all verbal orders and agree with the evaluation and treatment provided.Corrections: (The following items were deleted from the chart) 22:10 22:00 CT Chest without contrast+CT ordered. EDVA EDVA 22:12 22:11 Accucheck ordered. tm5 tm5 05/19 07:29 06:40 CARDIAC RISK PROFILE ordered. EDMS EDMS 07:29 06:40 CREATINE PHOSPHOKINASE ordered. EDMS EDMS 07:29 06:40 TROPONIN ordered. EDMS EDMS 07:38 05/18 22:12 CARDIAC INJURY PROFILE+LAB ordered. EDMS EDMS 05/19 07:38 05/18 22:12 TROPONIN+LAB ordered. EDMS EDMS 05/19 07:38 05/18 23:05 CARDIAC INJURY PROFILE+LAB reviewed. cs11 EDMS 05/19 07:38 05/18 23:05 TROPONIN+LAB reviewed. cs11 EDMS 05/19 07:39 07:29 CREATINE PHOSPHOKINASE ordered. EDMS EDMS 07:39 07:29 CARDIAC RISK PROFILE ordered. EDMS EDMS 07:39 07:29 TROPONIN ordered. EDMS EDMS 08:00 06:50 Spine, entire 2 view Ap, Lat ordered. EDMS EDMS 09:39 08:55 MAGNESIUM LEVEL ordered. EDMS EDMS 11:18 00:14 MRI Brain without Contrast ordered. EDMS EDMS 11:18 00:14 MRA BRAIN W/O CONTRAST ordered. EDMS EDMS 11:45 00:05 OTHER CUSTOM DIETS ordered. EDMS EDMS : 05/18 23:41 [facility] Payment Agreement hs2 05/19 09:30 T-Sheet-- Draft Copy [facility] 05/20 08:04 ECG/EKG gb Chart Complete MTDD
--- NOTE | 2016-05-21 14:02 | EDDOCDS ---
Nurse's Notes [facility] Name: Gaye Mata Age: 60 yrs Sex: Female : 1955 Arrival Date: 05/18/2016 Time: 21:48 Bed 15 Private MD: Unknown Pcp Diagnosis: Altered mental status, unspecified;Dysarthria following other cerebrovascular disease;Hypertensive encephalopathy Presentation: 05/18 21:53 Presenting complaint: EMS states: pt found at bottom of stairs. Unable to confirm any ttb information. Adult Sepsis Screening: Patient has new or worsening altered mentation (1 point). Patient's respiratory rate is less than 22. Suicide/Homicide risk assessment- Unable to assess, the patient has an altered level of consciousness. 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 Transition of care: patient was not received from another setting of care. 21:53 Acuity: KELSEY Level 2 ttb 21:53 Method Of Arrival: Ambulance ttb 21:59 Care prior to arrival: See EMS report. Saline lock initiated. Glucose check. 189. ttb 05/19 13:00 Adult Sepsis Screening: Systolic blood pressure is greater than 100. Patient has a pml qSOFA score of 0- Negative Sepsis Screen. Triage Assessment: 05/18 21:55 General: Appears in no apparent distress, well nourished, well groomed, Behavior is ttb flat, pleasant. Neurological: Level of Consciousness is awake, alert, confused, Oriented to none. Respiratory: Airway is patent Respiratory effort is even, unlabored. Derm: Skin is normal. Injury Description: No known injury. 05/19 13:00 HIV screening NA for this visit unable to assess. pml Historical: - Allergies: Unable to obtain; - Home Meds: 1. Unknown - PMHx: Unable to obtain; - PSHx: Unable to obtain; - Social history: Not able to communicate due to their condition, Smoking status: unknown if patient ever smoked tobacco. - Family history: Not pertinent. - : Unable to assess if pt is on anticoagulants. Unable to Verify Home Med List with the patient / caregiver. - Exposure Risk Screening:: Unable to Assess. Screenin/14 22:05 Screening information is obtained from unknown, unable to assess. Fall risk: At risk tm5 due to apparent cognitive impairment, prior history of falls. Assistance ADL's: requires no assistance with activities of daily living. Abuse/DV Screen: The patient / caregiver reports he/she is: not in a situation that causes fear, pain or injury. Nutritional screening: Unable to Assess. Advance Directives: Unable to assess Advance Directive status due to pt condition. home support is adequate. Assessment: 22:05 General: Appears distressed, Behavior is uncooperative. Pain: Denies pain. tm5 Neurological: Level of Consciousness is awake, alert, Oriented to person, pt confused to time & place. [employer] are weak on left Moves all extremities. Weakness in left Gait is unable to assess. Speech with expressive aphasia noted, Facial symmetry appears normal, Facial symmetry: tongue is midline, Pupils are PERRLA. Cardiovascular: Rhythm is sinus tachycardia No ectopy. Respiratory: Airway is patent Respiratory effort is even, unlabored, Respiratory pattern is regular, symmetrical, Breath sounds are clear bilaterally. GI: No deficits noted. : No deficits noted. Derm: Skin is pink, warm & dry. normal. Musculoskeletal: No deficits noted. 23:39 Neurological: Level of Consciousness is awake, alert, Oriented to person, Tire Builder are tm5 weak on left Weakness in left Speech with expressive aphasia noted, Facial symmetry appears normal, Facial symmetry: tongue is midline, Pupils are PERRLA. 05/19 01:00 General: pt attempting to climb out of bed, pulled IV tubing off from saline lock, tm5 blood leaking from IV site, pt confused at this time, is asking to go to the bathroom was told she had Mckeon in place & she doesn't seem to understand what that means, saline lock flushed easily with normal saline. 02:13 Reassessment: Patient appears in no apparent distress at this time. Patient states tm5 feeling better. Patient states symptoms have improved. General: pt completed boxed meal & tolerated well, no changes in assessment . Neurological: Level of Consciousness is awake, alert, Oriented to person, Tire Builder are weak on left Moves all extremities. Weakness in left Speech with expressive aphasia noted, Facial symmetry appears normal, Facial symmetry: tongue is midline, Pupils are PERRLA. Cardiovascular: Rhythm is sinus rhythm. 04:06 Reassessment: Patient appears in no apparent distress at this time. pt sleeping with tm5 easy respirations, no s/s of any distress. 05:56 Reassessment: Patient appears in no apparent distress at this time. pt remains resting tm5 with eyes closed, resp easy, no s/s of any distress. 07:05 General: Appears in no apparent distress, Behavior is appropriate for age, cooperative. pml Pain: Denies pain. Neurological: Level of Consciousness is awake, alert. Cardiovascular: Capillary refill < 3 seconds Rhythm is sinus rhythm No ectopy. Respiratory: Airway is patent Respiratory effort is even, unlabored. : Mckeon in place to gravity drainage. Derm: Skin is pink, warm & dry. 08:22 General: resting quietly on stretcher, PO meds as per written orders. resps easy and pml unlabored, skin p/w/d . 09:14 General: Appears in no apparent distress, Behavior is appropriate for age, cooperative. pml Neurological: Level of Consciousness is awake, alert. Cardiovascular: Capillary refill < 3 seconds Rhythm is sinus rhythm No ectopy. Derm: Skin is pink, warm & dry. 10:07 General: Resting on stretcher, eyes closed, sinus rhythm without change. resps easy and pml unlabored, skin p/w/d. 11:20 General: Appears in no apparent distress, comfortable, Behavior is appropriate for age, pml cooperative. Neurological: Level of Consciousness is awake, alert, Oriented to person, place. Cardiovascular: Capillary refill < 3 seconds Rhythm is sinus rhythm No ectopy. Derm: Skin is pink, warm & dry. 12:01 General: PO meds as per orders on jul. tolerated pills one at a time with sips pml of water. 12:57 General: Appears in no apparent distress, Behavior is appropriate for age, cooperative. pml Pain: Denies pain. Neurological: Level of Consciousness is awake, alert, Oriented to person, place. Cardiovascular: Capillary refill < 3 seconds Rhythm is sinus rhythm No ectopy. Respiratory: Airway is patent Respiratory effort is even, unlabored. GI: Abdomen is non- distended. Derm: Skin is pink, warm & dry. Vital Signs: 05/18 21:55 Resp 20; ttb 22:05 BP 208 / 106; Pulse 101; Resp 20 S; Temp 98.3(TE); Pulse Ox 98% on R/A; Weight 68.04 tm5 kg; Height 5 ft. 4 in. (162.56 cm); Pain 0/10; 23:05 BP 184 / 95 (auto/); tm5 23:05 Pulse 80 MON; Pulse Ox 96% ; tm5 23:13 BP 173 / 91 (auto/); tm5 23:13 Pulse 74 MON; Pulse Ox 96% ; tm5 23:28 BP 182 / 93 (auto/); tm5 23:28 Pulse 76 MON; Resp 18 S; Pulse Ox 97% on R/A; Pain 0/10; tm5 23:37 BP 191 / 95 (auto/); tm5 23:37 Pulse 96 MON; Resp 20 S; Pulse Ox 98% on R/A; Pain 0/10; tm5 23:43 BP 207 / 98 (auto/); tm5 23:43 Pulse 92 MON; Pulse Ox 95% on R/A; tm5 23:43 BP 210 / 110; Pulse 90; Resp 20 S; Pulse Ox 96% on R/A; Pain 0/10; tm5 05/19 00:13 BP 200 / 102 (auto/); tm5 00:13 Pulse 88 MON; Pulse Ox 96% ; tm5 00:28 BP 180 / 98 (auto/); tm5 00:28 Pulse 84 MON; Resp 18 S; Pulse Ox 95% on R/A; Pain 0/10; tm5 00:53 BP 199 / 95 (auto/); tm5 00:53 Pulse 106 MON; Resp 18 S; Pulse Ox 98% on R/A; Pain 0/10; tm5 01:13 BP 171 / 88 (auto/); tm5 01:13 Pulse 84 MON; Pulse Ox 97% ; tm5 01:28 BP 163 / 85 (auto/); tm5 01:28 Pulse 80 MON; Pulse Ox 97% ; tm5 01:43 Pulse 82 MON; Pulse Ox 97% ; tm5 01:43 BP 185 / 90 (auto/); tm5 01:58 BP 175 / 91 (auto/); tm5 01:58 Pulse 86 MON; Resp 18 S; Pulse Ox 95% on R/A; Pain 0/10; tm5 02:13 BP 157 / 79 (auto/); tm5 02:13 Pulse 78 MON; tm5 02:28 BP 130 / 67 (auto/); tm5 02:28 Pulse 74 MON; tm5 02:43 BP 135 / 70 (auto/); tm5 02:43 Pulse 76 MON; Resp 16 S; Pulse Ox 96% on R/A; Pain 0/10; tm5 02:58 BP 131 / 66 (auto/); tm5 02:58 Pulse 76 MON; Resp 16 S; Pulse Ox 97% on R/A; tm5 03:13 BP 139 / 74 (auto/); tm5 03:13 Pulse 80 MON; Resp 20 S; Pulse Ox 98% on R/A; Pain 0/10; tm5 06:23 BP 149 / 74 (auto/); pml 06:24 Pulse 80 MON; Pulse Ox 97% ; pml 06:26 BP 149 / 74; Pulse 82; Resp 20; Temp 96.5(T); Pulse Ox 98% on R/A; Pain 0/10; jmv 07:03 BP 132 / 75 (auto/); pml 07:04 Pulse 76 MON; Pulse Ox 97% ; pml 07:17 BP 126 / 68 (auto/); pml 07:18 Pulse 64 MON; Pulse Ox 95% ; pml 07:32 BP 136 / 71 (auto/); pml 07:33 Pulse 62 MON; Pulse Ox 98% ; pml 07:47 BP 130 / 70 (auto/); pml 07:48 Pulse 62 MON; Pulse Ox 97% ; pml 08:02 BP 127 / 63 (auto/); pml 08:03 Pulse 60 MON; Pulse Ox 98% ; pml 08:17 BP 136 / 75 (auto/); pml 08:18 Pulse 74 MON; Pulse Ox 98% ; pml 08:32 BP 154 / 84 (auto/); pml 08:32 Pulse 76 MON; Pulse Ox 99% ; pml 08:47 BP 130 / 69 (auto/); pml 08:48 Pulse 76 MON; pml 09:02 BP 128 / 69 (auto/); pml 09:02 BP 128 / 69 (auto/); pml 09:03 Pulse 74 MON; pml 09:11 Pulse 68 MON; pml 09:17 Pulse 64 MON; Pulse Ox 97% ; pml 09:17 BP 97 / 53 (auto/); pml 09:32 Pulse 64 MON; Pulse Ox 97% ; pml 09:32 BP 114 / 61 (auto/); pml 09:47 Pulse 62 MON; Pulse Ox 97% ; pml 09:47 BP 115 / 60 (auto/); pml 10:02 Pulse 62 MON; Pulse Ox 97% ; pml 10:02 BP 119 / 65 (auto/); pml 10:17 Pulse 66 MON; Pulse Ox 98% ; pml 10:17 BP 116 / 63 (auto/); pml 10:31 Pulse 64 MON; Pulse Ox 98% ; pml 10:32 BP 128 / 64 (auto/); pml 10:47 Pulse 60 MON; Pulse Ox 98% ; pml 10:47 BP 120 / 60 (auto/); pml 11:02 Pulse 62 MON; Pulse Ox 98% ; pml 11:02 BP 120 / 63 (auto/); pml 11:17 Pulse 72 MON; Pulse Ox 98% ; pml 11:17 BP 133 / 69 (auto/); pml 11:32 Pulse 80 MON; pml 11:32 BP 135 / 70 (auto/); pml 11:46 Pulse 74 MON; pml 11:47 BP 135 / 71 (auto/); pml 12:02 Pulse 76 MON; Pulse Ox 99% ; pml 12:02 BP 150 / 82 (auto/); pml 12:58 BP 119 / 67; Pulse 72; Resp 18; Temp 97.9; Pulse Ox 99% ; Pain 0/10; pml 05/18 22:05 Body Mass Index 25.75 (68.04 kg, 162.56 cm) tm5 Vitals: 05/18 21:55 Log In Time N/A - ambulance arrival. ttb ED Course: 21:49 Patient visited by Krystina Colbert PCA. tmm1 21:49 Unknown Pcp is Private Physician. tmm1 21:49 Patient moved to Waiting tmm1 21:50 Patient name changed from Gaye\S\\S\Mata\S\ to Gaye\S\ \S\Mata. EDMS 21:51 Kemar Vital DO is Attending Physician. cs11 21:51 Patient visited by Kemar Vital DO. cs11 21:51 Patient moved to 4 tmm1 21:55 Triage Initiated ttb 22:04 Patient visited by Bozena Shelton RN. tm5 22:[address] Scan. Awaiting ED physician evaluation. tm5 22:05 The patient / caregiver is instructed regarding the plan of care and ED course. Cardiac tm5 monitor on. Pulse ox on. NIBP on. 22:05 Inserted saline lock: 18 gauge in left antecubital area and blood collected. The tm5 patient tolerated the procedure well. Labs drawn. (by ED staff). 22:[address] tm5 22:16 Patient visited by Bozena Shelton RN. tm5 22:17 Lactic Acid (Bledsoe tube on ice) Sent. tm5 22:17 Acetaminophen Level Sent. tm5 22:17 Salicylate Level Sent. tm5 22:17 CBC with Diff Sent. tm5 22:17 Liver Profile Sent. tm5 22:17 MED Profile Sent. tm5 22:17 Thyroid Stimulating Hormone Sent. tm5 22:19 Patient visited by Bozena Shelton RN. tm5 22:19 Patient moved back from CT. tm5 22:33 Patient visited by Bozena Shelton RN. tm5 22:47 Patient visited by Bozena Shelton RN. tm5 22:58 Notified attending ED physician of Critical lab value. Lactic Acid 3.5. kmg1 23:14 Amy Markham is Hospitalizing Provider. cs11 23:17 CT Head Without Contrast Returned. EDMS 23:37 Patient visited by Bozena Shelton RN. tm5 23:38 Psych services to see patient. Visited by Hospitalist Mary at bedside. tm5 23:41 [facility] [place] was [place] into [employer] and attached to record. hs2 23:43 Mckeon cath inserted 18 Fr. Balloon inflated. To gravity drainage. Urine specimen tm5 collected. returned cloudy urine. Patient tolerated poorly. 05/19 00:11 Patient visited by Bozena Shelton RN. tm5 00:12 Urine Culture Sent. tm5 00:12 Urinalysis Sent. tm5 00:12 Drug Eval Toxicology ED Only Sent. tm5 00:38 Patient moved to Admit Hold tmm1 01:00 Patient visited by Bozena Shelton RN. tm5 02:13 Patient visited by Bozena Shelton RN. tm5 04:06 Patient visited by Bozena Shelton RN. tm5 04:52 Patient visited by Bozena Shelton RN. tm5 05:19 Patient visited by Bozena Shelton RN. tm5 06:27 Patient visited by Darren Cortez PCA. jmv 06:35 Patient visited by Bozena Shelton RN. tm5 06:56 Patient visited by Bozena Shelton RN. tm5 06:57 Patient visited by Bozena Shelton RN. tm5 06:57 Report given to Yakelin Villegas RN. tm5 07:06 Patient visited by Yakelin Alegria RN. pml 07:59 EKG-ADULT Returned. EDMS 08:24 Patient visited by Yakelin Alegria RN. pml 08:27 Patient moved to 15 pml 09:16 Patient visited by Yakelin Alegria RN. pml 09:30 T-Sheet-- Draft Copy was scanned into [employer] and attached to record. seh 09:40 Spine. Lumbosacral, complete Returned. EDMS 09:40 Spine, Cervical Returned. EDMS 09:40 Chest, 1 view Returned. EDMS 09:40 Hip,AP,LAT to include Pelvis Returned. EDMS 09:40 Spine, Thoracic 3 VIEWS Returned. EDMS 10:09 Patient visited by Yakelin Alegria RN. pml 11:21 Patient visited by Yakelin Alegria RN. pml 11:32 No procedures done that require assistance. pml 12:02 Patient visited by Yakelin Alegria RN. pml 05/20 08:04 ECG/EKG was scanned into [employer] and attached to record. gb Administered Medications: 05/18 23:38 Drug: NS 0.9% 1000 ml [sodium chloride 0.9 % intravenous solution] Route: IV; Rate: tm5 bolus; Site: left forearm; 05/19 00:45 Follow up: IV Status: Completed infusion; IV Intake: 1000ml tm5 05/18 23:38 Drug: Enalaprilat 2.5 mg [enalaprilat 1.25 mg/mL intravenous solution] Route: IV; Rate: tm5 calculated rate; Site: left forearm; 05/19 00:12 Follow up: Response: No Adverse Reaction; No significant change. tm5 00:20 Follow up: Response: Blood pressure is improved; No Adverse Reaction tm5 Intake: 00:45 IV: 1000.00ml; Total: 1000.00ml. tm5 Output: 06:35 Urine: 1000.00ml (Mckeon); Total: 1000.00ml. tm5 Order Results: Lab Order: CBC with Diff; SPEC'M 05/18/16 22:13 Test: WHITE BLOOD COUNT; Value: 6.5; Range: 4.0-10.0; Units: K/mm3; Status: F Test: RED BLOOD COUNT; Value: 4.18; Range: 4.00-5.40; Units: M/mm3; Status: F Test: HEMOGLOBIN; Value: 12.8; Range: 12.0-16.0; Units: g/dl; Status: F Test: HEMATOCRIT; Value: 38.3; Range: 36.0-47.0; Units: %; Status: F Test: MEAN CORPUSCULAR VOLUME; Value: 91.6; Range: 80.0-96.0; Units: fl; Status: F Test: MEAN CORPUSCULAR HEMOGLOBIN; Value: 30.7; Range: 27.0-33.0; Units: pg; Status: F Test: MEAN CORPUSCULAR HGB CONC; Value: 33.5; Range: 32.0-36.5; Units: g/dl; Status: F Test: RED CELL DISTRIBUTION WIDTH; Value: 12.4; Range: 11.5-14.5; Units: %; Status: F Test: PLATELET COUNT, AUTOMATED; Value: 164; Range: 150-450; Units: k/mm3; Status: F Test: NEUTROPHILS %; Value: 65.6; Range: 36.0-66.0; Units: %; Status: F Test: LYMPH %; Value: 26.8; Range: 24.0-44.0; Units: %; Status: F Test: MONO %; Value: 4.9; Range: 0.0-5.0; Units: %; Status: F Test: EOS %; Value: 0.4; Range: 0.0-3.0; Units: %; Status: F Test: BASO %; Value: 0.3; Range: 0.0-1.0; Units: %; Status: F Test: LARGE UNSTAINED CELL %; Value: 2.0; Range: 0.0-4.0; Units: %; Status: F Test: NEUTROPHILS #; Value: 4.3; Range: 1.8-7.7; Units: K/mm3; Status: F Test: LYMPH #; Value: 1.7; Range: 1.5-4.5; Units: K/mm3; Status: F Test: MONO #; Value: 0.3; Range: 0.0-0.8; Units: K/mm3; Status: F Test: EOS #; Value: 0.0; Range: 0.0-0.50; Units: K/mm3; Status: F Test: BASO #; Value: 0.0; Range: 0.0-0.2; Units: K/mm3; Status: F Test: LARGE UNSTAINED CELL #; Value: 0.1; Range: 0.0-0.4; Units: K/mm3; Status: F Lab Order: Liver Profile; SPEC'M 05/18/16 22:13 Test: AST/SGOT; Value: 36; Range: 15-37; Units: U/L; Status: F Test: ALT/SGPT; Value: 44; Range: 12-78; Units: U/L; Status: F Test: ALKALINE PHOSPHATASE; Value: 89; Range: 45-117; Units: U/L; Status: F Test: BILIRUBIN,TOTAL; Value: 0.3; Range: 0.2-1.0; Units: MG/DL; Status: F Test: BILIRUBIN,DIRECT; Value: 0.1; Range: 0.0-0.2; Units: MG/DL; Status: F Test: TOTAL PROTEIN; Value: 7.8; Range: 6.4-8.2; Units: GM/DL; Status: F Test: ALBUMIN; Value: 3.7; Range: 3.2-5.2; Units: GM/DL; Status: F Test: ALBUMIN/GLOBULIN RATIO; Value: 0.90; Range: 1.00-1.93; Abnormal: Below low normal; Status: F Lab Order: MED Profile; SPEC'M 05/18/16 22:13 Test: GLUCOSE, FASTING; Value: 156; Range: 80-110; Abnormal: Above high normal; Units: MG/DL; Status: F Test: BLOOD UREA NITROGEN; Value: 27; Range: 7-18; Abnormal: Above high normal; Units: MG/DL; Status: F Test: CREATININE FOR GFR; Value: 1.16; Range: 0.55-1.02; Abnormal: Above high normal; Units: MG/DL; Status: F Test: GLOMERULAR FILTRATION RATE; Value: > 60.0; Range: >45; Status: F Test: SODIUM LEVEL; Value: 146; Range: 136-145; Abnormal: Above high normal; Units: MEQ/L; Status: F Test: POTASSIUM SERUM; Value: 4.7; Range: 3.5-5.1; Units: MEQ/L; Status: F Test: CHLORIDE LEVEL; Value: 108; Range: 98-107; Abnormal: Above high normal; Units: MEQ/L; Status: F Test: CARBON DIOXIDE LEVEL; Value: 31; Range: 21-32; Units: MEQ/L; Status: F Test: ANION GAP; Value: 7; Range: 8-16; Abnormal: Below low normal; Units: MEQ/L; Status: F Test: CALCIUM LEVEL; Value: 8.9; Range: 8.8-10.2; Units: MG/DL; Status: F Test Note: ; Units are mL/min/1.73 m2 Chronic Kidney Disease Staging per NKF: Stage I & II GFR >=60 Normal to Mildly Decreased Stage III GFR 30-59 Moderately Decreased Stage IV GFR 15-29 Severely Decreased Stage V GFR <15 Very Little GFR Left ESRD GFR <15 on FILM PROCESS OPERATOR Lab Order: Thyroid Stimulating Hormone; SPEC'M 05/18/16 22:13 Test: THYROID STIMULATING HORMONE; Value: 1.350; Range: 0.358-3.740; Units: uIU/ML; Status: F Lab Order: Acetaminophen Level; SPEC'M 05/18/16 22:13 Test: ACETAMINOPHEN LEVEL; Value: < 2.0; Range: 10.0-30.0; Abnormal: Below low normal; Units: UG/ML; Status: F Lab Order: Drug Eval Toxicology ED Only; SPEC'M 05/18/16 22:13 Test: AMPHETAMINES LEVEL URINE; Value: NEGATIVE; Range: NEGATIVE; Status: F Test: BARBITURATES URINE; Value: NEGATIVE; Range: NEGATIVE; Status: F Test: BENZODIAZEPINES URINE; Value: NEGATIVE; Range: NEGATIVE; Status: F Test: CANNABINOIDS URINE; Value: NEGATIVE; Range: NEGATIVE; Status: F Test: COCAINE METABOLITE URINE; Value: NEGATIVE; Range: NEGATIVE; Status: F Test: METHADONE URINE; Value: NEGATIVE; Range: NEGATIVE; Status: F Test: OPIATES URINE; Value: NEGATIVE; Range: NEGATIVE; Status: F Test: TRICYCLIC ANTIDEPRESS URINE; Value: NEGATIVE; Range: NEGATIVE; Status: F Test Note: ; ALL PRESUMPTIVE POSITIVE FINDINGS ARE UNCONFIRMED NORMAL VALUES THRESHOLD IN NG/ML AMPHETAMINES 1000 METHAMPHETAMINES 1000 BARBITURATES 300 BENZODIAZEPINES 300 CANNABINOIDS (THC) 50 COCAINE METABOLITE 300 METHADONE 300 OPIATES 300 PHENCYCLIDINE 25 TRICYCLIC ANTIDEPRESSANTS 1000 RESULTS ARE FOR MEDICAL PURPOSES ONLY. ALL URINE SPECIMENS WILL BE SAVED FOR 3 DAYS. IF CONFIRMATION OF A PRESUMPTIVE POSTIVE SCREEN RESULT IS DESIRED, CALL CHEMISTRY ([phone]) AND REQUEST URINE TO BE SENT TO REFERENCE LAB. FOR A LIST OF CLOSELY RELATED COMPOUNDS PLEASE CALL THE LAB. Lab Order: Salicylate Level; SPEC'M 05/18/16 22:13 Test: SALICYLATE LEVEL; Value: < 1.7; Range: 5.0-30.0; Abnormal: Below low normal; Units: MG/DL; Status: F Lab Order: Lactic Acid (Bledsoe tube on ice); SPEC'M 05/18/16 22:13 Test: LACTIC ACID LEVEL, LACTATE; Value: 3.5; Range: 0.4-2.0; Abnormal: Above upper panic limits; Units: MMOL/L; Status: F Lab Order: Urinalysis; SPEC'M 05/19/16 00:07 Test: APPEARANCE, URINE; Value: CLOUDY; Range: CLEAR; Abnormal: Above high normal; Status: F Test: COLOR, URINE; Value: YELLOW; Range: YELLOW; Status: F Test: PH,URINE; Value: 6.0; Range: 5.0-9.0; Units: UNITS; Status: F Test: SPECIFIC GRAVITY URINE AUTO; Value: 1.018; Range: 1.002-1.035; Status: F Test: PROTEIN, URINE AUTO; Value: NEGATIVE; Range: NEGATIVE; Units: mg/dL; Status: F Test: GLUCOSE, URINE (UA) AUTO; Value: NEGATIVE; Range: NEGATIVE; Units: mg/dL; Status: F Test: KETONE, URINE AUTO; Value: NEGATIVE; Range: NEGATIVE; Units: mg/dL; Status: F Test: UROBILINOGEN, URINE AUTO; Value: 2.0; Range: 0.0-2.0; Abnormal: Above high normal; Units: mg/dL; Status: F Test: BILIRUBIN, URINE AUTO; Value: NEGATIVE; Range: NEGATIVE; Status: F Test: NITRITE, URINE AUTO; Value: NEGATIVE; Range: NEGATIVE; Status: F Test: LEUKOCYTE ESTERASE, URINE AUTO; Value: TRACE; Range: NEGATIVE; Abnormal: Above high normal; Status: F Test: BLOOD, URINE BLOOD; Value: NEGATIVE; Range: NEGATIVE; Status: F Test: WBC, URINE AUTO; Value: 10; Range: 0-3; Abnormal: Above high normal; Units: /HPF; Status: F Test: RBC, URINE AUTO; Value: 1; Range: 0-3; Units: /HPF; Status: F Test: BACTERIA, URINE AUTO; Value: 1+; Range: NEGATIVE; Abnormal: Above high normal; Status: F Test: SQUAMOUS EPITHELIAL CELL UR AU; Value: 0; Range: 0-6; Units: /HPF; Status: F Test: HYALINE CAST, URINE AUTO; Value: 0; Range: 0-1; Units: /LPF; Status: F Test: AMORPHOUS SEDIMENT; Value: SMALL; Range: NEGATIVE; Abnormal: Above high normal; Status: F Lab Order: CBC WITH DIFFERENTIAL; SPEC'M 05/19/16 06:29 Test: WHITE BLOOD COUNT; Value: 5.4; Range: 4.0-10.0; Units: K/mm3; Status: F Test: RED BLOOD COUNT; Value: 3.79; Range: 4.00-5.40; Abnormal: Below low normal; Units: M/mm3; Status: F Test: HEMOGLOBIN; Value: 11.5; Range: 12.0-16.0; Abnormal: Below low normal; Units: g/dl; Status: F Test: HEMATOCRIT; Value: 34.6; Range: 36.0-47.0; Abnormal: Below low normal; Units: %; Status: F Test: MEAN CORPUSCULAR VOLUME; Value: 91.5; Range: 80.0-96.0; Units: fl; Status: F Test: MEAN CORPUSCULAR HEMOGLOBIN; Value: 30.4; Range: 27.0-33.0; Units: pg; Status: F Test: MEAN CORPUSCULAR HGB CONC; Value: 33.3; Range: 32.0-36.5; Units: g/dl; Status: F Test: RED CELL DISTRIBUTION WIDTH; Value: 12.4; Range: 11.5-14.5; Units: %; Status: F Test: PLATELET COUNT, AUTOMATED; Value: 176; Range: 150-450; Units: k/mm3; Status: F Test: NEUTROPHILS %; Value: 61.8; Range: 36.0-66.0; Units: %; Status: F Test: LYMPH %; Value: 28.9; Range: 24.0-44.0; Units: %; Status: F Test: MONO %; Value: 6.1; Range: 0.0-5.0; Abnormal: Above high normal; Units: %; Status: F Test: EOS %; Value: 0.6; Range: 0.0-3.0; Units: %; Status: F Test: BASO %; Value: 0.4; Range: 0.0-1.0; Units: %; Status: F Test: LARGE UNSTAINED CELL %; Value: 2.2; Range: 0.0-4.0; Units: %; Status: F Test: NEUTROPHILS #; Value: 3.4; Range: 1.8-7.7; Units: K/mm3; Status: F Test: LYMPH #; Value: 1.6; Range: 1.5-4.5; Units: K/mm3; Status: F Test: MONO #; Value: 0.3; Range: 0.0-0.8; Units: K/mm3; Status: F Test: EOS #; Value: 0.0; Range: 0.0-0.50; Units: K/mm3; Status: F Test: BASO #; Value: 0.0; Range: 0.0-0.2; Units: K/mm3; Status: F Test: LARGE UNSTAINED CELL #; Value: 0.1; Range: 0.0-0.4; Units: K/mm3; Status: F Lab Order: BASIC METABOLIC PROFILE; [facility]' 05/19/16 06:28 Test: GLUCOSE, FASTING; Value: 115; Range: 80-110; Abnormal: Above high normal; Units: MG/DL; Status: F Test: BLOOD UREA NITROGEN; Value: 19; Range: 7-18; Abnormal: Above high normal; Units: MG/DL; Status: F Test: CREATININE FOR GFR; Value: 0.91; Range: 0.55-1.02; Units: MG/DL; Status: F Test: GLOMERULAR FILTRATION RATE; Value: > 60.0; Range: >45; Status: F Test: SODIUM LEVEL; Value: 146; Range: 136-145; Abnormal: Above high normal; Units: MEQ/L; Status: F Test: POTASSIUM SERUM; Value: 3.2; Range: 3.5-5.1; Units: MEQ/L; Status: F Test: CHLORIDE LEVEL; Value: 113; Range: 98-107; Abnormal: Above high normal; Units: MEQ/L; Status: F Test: CARBON DIOXIDE LEVEL; Value: 26; Range: 21-32; Units: MEQ/L; Status: F Test: ANION GAP; Value: 7; Range: 8-16; Abnormal: Below low normal; Units: MEQ/L; Status: F Test: CALCIUM LEVEL; Value: 8.1; Range: 8.8-10.2; Abnormal: Below low normal; Units: MG/DL; Status: F Test Note: ; Units are mL/min/1.73 m2 Chronic Kidney Disease Staging per NKF: Stage I & II GFR >=60 Normal to Mildly Decreased Stage III GFR 30-59 Moderately Decreased Stage IV GFR 15-29 Severely Decreased Stage V GFR <15 Very Little GFR Left ESRD GFR <15 on FILM PROCESS OPERATOR Lab Order: LACTIC ACID LEVEL, LACTATE; SPEC'M 05/19/16 03:27 Test: LACTIC ACID LEVEL, LACTATE; Value: 1.5; Range: 0.4-2.0; Units: MMOL/L; Status: F Lab Order: CARDIAC RISK PROFILE; SPEC'M 05/19/16 06:28 Test: TRIGLYCERIDES LEVEL; Value: 43; Range: <150; Units: MG/DL; Status: F Test: CHOLESTEROL LEVEL; Value: 96; Range: <200; Units: MG/DL; Status: F Test: HDL CHOLESTEROL; Value: 50; Range: >40; Units: MG/DL; Status: F Test: LDL CHOLESTEROL; Value: 37.4; Range: <100; Units: MG/DL; Status: F Test: NON-HDL-C; Value: 46; Units: MG/DL; Status: F Test: CHOLESTEROL RISK RATIO; Value: 1.920; Range: <5; Status: F Lab Order: HEMOGLOBIN A1C; SPEC'M 05/19/16 06:22 Test: HEMOGLOBIN A1c; Value: 5.2; Range: 4.5-6.2; Units: %; Status: F Test: ESTIMATED AVERAGE GLUCOSE; Value: 103; Range: 60-110; Units: MG/DL; Status: F Lab Order: CREATINE PHOSPHOKINASE; SPEC'M 05/19/16 06:28 Test: CPK CREATINE PHOSPHOKINASE; Value: 223; Range: 26-192; Abnormal: Above high normal; Units: U/L; Status: F Lab Order: TROPONIN; SPEC'M 05/19/16 06:28 Test: TROPONIN I; Value: 0.09; Range: < 0.10; Units: NG/ML; Status: F Test Note: ; Troponin I Reference Interval for Siem[employer] [place] LOCI: 99th Percentile= 0.00-0.045 ng/ml Risk Stratification: <= 0.10 ng/ml Decreased Risk for Adverse Clinical Events. 0.10-1.50 ng/ml Increased Risk for Adverse Clinical Events. Evaluation of additional criterion and/or repeat testing in 2-6 hours is suggested to rule out myocardial damage. >= 1.50 ng/ml Indicative of Myocardial Injury. 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; : 1955 Requested By: KEMAR VITAL; Order Number: [id number] Reading MD: Amaris Sylvester; Measurements; Intervals [place]; Rate: 96 P: 58; DC: 142 QRS: 2; QRSD: 76 T: 33; QT: 376; QTc: 476; Interpretive Statements; SINUS RHYTHM WITH OCCASIONAL VENTRICULAR PREMATURE COMPLEXES; NONSPECIFIC ST T-WAVE ABNORMALITY; BASELINE ARTIFACT LIMITS INTERPRETATION; NO PRIOR FOR COMPARISON; Electronically Signed On 05-19-2016 7:36:05 EST by Amaris Sylvester; Radiology Order: CT Head Without Contrast Test: CT Head Without Contrast REASON FOR EXAMINATION: altered mental status; ; CLINICAL HISTORY: AMS.; TECHNIQUE: Multiple axial CT images were obtained through the brain without IV contrast material.; COMMENTS:; There is normal configuration of sella turcica. There are no intra or extra-axial collections. There; is no mass effect or midline shift. There is no evidence of hematoma formation. No hydrocephalus is p; resent. The ventricles are symmetrical. No abnormal calcifications are present.; There is diffuse age-appropriate cerebellar and cerebral atrophy with proportionally dilated ventricl; es and cortical sulci.; Right temporal encephalomalacia is seen compatible with old infarct.; There are bilateral confluent periventricular and subcortical white matter hypolucencies compatible w; ith severe chronic microvascular disease.; Otherwise, no significant focal abnormalities are seen either in the posterior fossa or supratentoria; l compartment.; IMPRESSION:; 1. Severe cerebellar and cerebral atrophy.; 2. Severe chronic microvascular disease.; 3. Old right temporal infarct.; 4. No evidence of acute intracranial pathology.; Thank you for your kind referral of this patient.; ; ; Radiology Order: Chest, 1 view Test: Chest, 1 view REASON FOR EXAMINATION: fall, pain; Clinical: Trauma. Fall. .; ; Comparison: None .; ; Technique: AP view only .; ; Findings:; The mediastinum and cardiac silhouette are normal. The lung neely suggest trace; left basilar atelectasis without focal consolidation, effusion, or pneumothorax.; The skeletal structures are intact and normal.; ; Impression:; 1. Trace left basilar atelectasis.; ; ; Signed by; Justin Latham MD 05/19/2016 09:19 A; Radiology Order: Hip,AP,LAT to include Pelvis Test: Hip,AP,LAT to include Pelvis REASON FOR EXAMINATION: fall; Clinical: Trauma.; ; Technique: AP view of the pelvis with neutral and frog lateral views of the; right and left hip.; ; Findings:; Mild symmetric age-related changes are appreciated throughout the pelvis and; hips. There is no evidence for acute fracture or dislocation.; ; Impression:; Age-related changes.; No acute fracture or dislocation.; ; ; Signed by; Justin Latham MD 05/19/2016 09:21 A; Radiology Order: Spine, Cervical Test: Spine, Cervical REASON FOR EXAMINATION: r/o fractures; Clinical: Trauma.; ; Technique: AP, lateral, bilateral oblique, flexion/extension, swimmers and; open-mouth views of the cervical spine.; ; Findings:; Alignment and lordosis maintained without evidence for acute fracture /; compression injury or subluxation. Mild age-related degenerative changes are; appreciated including subtle anterior spurring and minimal endplate sclerosis at; multiple levels. Spinous processes are intact. Open mouth view demonstrates; normal C1-C2 articulation and odontoid process.; ; Impression:; Multilevel age-related degenerative changes.; No acute fracture / compression injury identified.; ; ; Signed by; Justin Latham MD 05/19/2016 09:18 A; Radiology Order: Spine. Lumbosacral, complete Test: Spine. Lumbosacral, complete REASON FOR EXAMINATION: r/o fractures; Clinical: Trauma.; ; Technique: AP, lateral, bilateral oblique, and coned-down views of the; lumbosacral spine.; ; Findings:; Diffuse chronic multilevel degenerative changes are appreciated including; anterior spurring, endplate sclerosis, disc space narrowing and hypertrophic; facet changes. There is mild anterolisthesis at the L4-5 level. No obvious; acute fracture / compression injury identified.; ; Impression:; Multilevel degenerative changes and mild anterolisthesis at the L4-5 level. No; obvious acute fracture / compression injury.; ; ; Signed by; Justin Latham MD 05/19/2016 09:16 A; Radiology Order: Spine, Thoracic 3 VIEWS Test: Spine, Thoracic 3 VIEWS REASON FOR EXAMINATION: r/o fractures; Clinical: thoracic pain. Trauma. Fall.; ; Technique: AP, lateral.; ; Findings: Alignment and kyphosis is maintained. Vertebral bodies intact. No; acute fracture / compression injury or subluxation.; ; Impression:; No acute fracture / compression injury or subluxation.; ; ; Signed by; Justin Latham MD 05/19/2016 09:21 A; Outcome: 05/18 23:14 Decision to Hospitalize by Provider. [id number] 05/19 11:32 Discharge Assessment: Patient awake, alert and oriented x 3. No cognitive and/or pml functional deficits noted. Patient verbalized understanding of disposition instructions. patient administered narcotics - no. The following High Risk Discharge criteria are identified: None. Admitted to PCU accompanied by nurse, accompanied by tech, via stretcher, on monitor, with chart. Condition: good Condition: stable. CT Study completed. Admission hand-off: Report Faxed Fax receipt verified by PCU. Property sent home with patient. 13:01 Patient left the ED. pml Signatures: Dispatcher [employer] EDPR Syeda Hollis, RN RN [id number] Richa Lee, Reg Reg gb Yakelin AlegriaRN RN pml Kemar Vital, DO cs11 Treva Vargas RN RN ttb Krystina Colbert, SENIOR STRATEGY ANALYST SENIOR STRATEGY ANALYST [id number] Shaila Guzman, Reg Reg hs2 Amaris SpringerDarren, SENIOR STRATEGY ANALYST SENIOR STRATEGY ANALYST jmv Bozena Shelton RN RN tm5 Corrections: (The following items were deleted from the chart) 05/18 23:39 22:05 Neurological: Level of Consciousness is awake, alert, Oriented to person, pt tm5 confused to time & place. Tire Builder are equal bilaterally Moves all extremities. Full function Gait is unable to assess. Speech with expressive aphasia noted, Facial symmetry appears normal, Facial symmetry: tongue is midline, Pupils are PERRLA, 5 05/19 07:38 05/18 22:17 CARDIAC INJURY PROFILE+LAB sent. tm5 EDPR 05/19 07:38 05/18 22:17 TROPONIN+LAB sent. [facility] EDPR 05/19 09:15 07:05 Neurological: Level of Consciousness is awake, alert, Oriented to person, place, pml time, pml Chart Complete MTDD
--- NOTE | 2016-05-21 20:16 | EEG ---
DATE OF PROCEDURE: 05/21/2016 REFERRING PHYSICIAN: Paulino Herrmann MD DIAGNOSIS: Altered mental status. EE-19 HISTORY: The patient is a 60-year-old woman who was admitted at [facility] after suffering a fall and altered mental status. This EEG was done to rule out epileptic potential and assess degree of encephalopathy. She is currently on aspirin, amlodipine, labetalol, Lipitor, etc. TECHNICAL DESCRIPTION: This digital EEG was recorded by 21 scalp, ear and two EKG electrodes and was reviewed in bipolar and referential montages following reformatting in 10-20 international electrode placement system. INTERPRETATION: The patient was noted to be in awake and drowsy states during this EEG. Background rhythm consisted of 5 - 6 Hz theta activity measuring 15 - 40 microvolts in amplitude. Stage I and II sleep was reviewed and was symmetric bilaterally. Hyperventilation could not be performed. Photic stimulation remained unremarkable. EKG revealed normal sinus rhythm. No focal, lateralizing or epileptiform abnormalities were seen. No clinical or electrographic seizures were recorded. CONCLUSION: This EEG in awake, drowsy states, stage I and II sleep is abnormal due to presence of mild generalized slowing and disorganization of background consistent with nonspecific diffuse cerebral dysfunction such as seen in encephalopathy due to multiple potential causes including toxic, metabolic, autoimmune, infectious, multifocal structural abnormalities or medication related causes. No epileptiform abnormalities were seen. Clinical correlation is recommended.
[2016-05-21 22:00] VITALS: BP 162/79
[2016-05-22] MEDS: D5W/0.45% SODIUM CHLORIDE 1,000 ML IV SCH ×2 (05:42→20:00)
[2016-05-22 06:00] VITALS: BP 136/76
[2016-05-22 06:37] LABS: BASO % 0.4 % (0.0-1.0); EOS % 0.2 % (0.0-3.0); LARGE UNSTAINED CELL # 0.1 K/mm3 (0.0-0.4); LARGE UNSTAINED CELL % 2.1 % (0.0-4.0); LYMPH # 1.6 K/mm3 (1.5-4.5); LYMPH % 33.4 % (24.0-44.0); MEAN CORPUSCULAR HEMOGLOBIN 29.5 pg (27.0-33.0); MEAN CORPUSCULAR HGB CONC 31.4 g/dl (32.0-36.5); MEAN CORPUSCULAR VOLUME 93.9 fl (80.0-96.0); MONO # 0.3 K/mm3 (0.0-0.8); MONO % 5.8 % (0.0-5.0); NEUTROPHILS # 2.6 K/mm3 (1.8-7.7); PLATELET COUNT, AUTOMATED 160 k/mm3 (150-450); RED CELL DISTRIBUTION WIDTH 13.3 % (11.5-14.5); WHITE BLOOD COUNT 4.5 K/mm3 (4.0-10.0)
[2016-05-22 06:56] LABS: ANION GAP 7 MEQ/L (8-16); BLOOD UREA NITROGEN 9 MG/DL (7-18); CALCIUM LEVEL 8.2 MG/DL (8.8-10.2); CARBON DIOXIDE LEVEL 28 MEQ/L (21-32); CHLORIDE LEVEL 109 MEQ/L (98-107); CREATININE FOR GFR 0.98 MG/DL (0.55-1.02); GLOMERULAR FILTRATION RATE > 60.0 (>45); GLUCOSE, FASTING 92 MG/DL (80-110); MAGNESIUM LEVEL 1.8 MG/DL (1.8-2.4); POTASSIUM SERUM 3.4 MEQ/L (3.5-5.1); SODIUM LEVEL 144 MEQ/L (136-145)
[2016-05-22] MEDS ORDERED: POTASSIUM CHLORIDE 10 MEQ SR TABLET PO ONE (10:00)
[2016-05-22] MEDS: AMOXICILLIN 875 MG TAB PO SCH ×2 (10:10→21:33)
[2016-05-22] MEDS: ASPIRIN 81 MG ENTERIC TAB PO SCH (10:10)
[2016-05-22] MEDS: ENOXAPARIN 40 MG/0.4 ML SYRINGE (J1650) SC SCH (10:10)
[2016-05-22] MEDS: SENOKOT S TAB PO SCH ×2 (10:10→21:34)
[2016-05-22] MEDS: ATORVASTATIN 20 MG TAB PO SCH (10:11)
[2016-05-22] MEDS: amLODIPine 5 MG TAB PO SCH ×2 (10:13→21:34)
[2016-05-22] MEDS: LABETALOL 200 MG TAB PO SCH ×2 (10:13→21:34)
--- NOTE | 2016-05-22 10:22 | IPN ---
DATE: 05/22/2016 60-year-old female seen at bedside. No overnight issues reported. She appears to be a little less lethargic, slightly more cognitive this morning but still not quite able to carry on a full conversation. OBJECTIVE: Temperature 96.4, pulse 71, respiratory rate 17, BP 136/76, SPO2 is 90% on room air. GENERAL: The patient appears to be in no acute distress. She is more alert. HEENT: Unremarkable. LUNGS: Clear. HEART: Regular rhythm. ABDOMEN: Soft. EXTREMITIES: No edema or calf tenderness. She does have movement of all four extremities with no notable deficits. LABORATORY DATA: White count 4.5, hemoglobin 11, platelets are 160,000, sodium 144, potassium 3.4, chloride 109, bicarb 28, anion gap 7, BUN is 9, creatinine 0.98, glucose 92, calcium 8.2, magnesium 1.8. ASSESSMENT: 1. Dysarthria. concern for CVA versus transient ischemic attack (TIA). No apparent acute findings with MRI, MRA. EEG was suggested for of metabolic encephalopathy. 2-D echo is pending at this time. Appreciate Dr. Kyle's input. We will continue on aspirin and Lipitor. 2. Metabolic encephalopathy with altered mental status. She does show some gradual improvement from yesterday. Her urine culture was positive for enterococcus with greater than 100,000 colony count. Will go ahead and treated for presumed urinary tract infection. 3. Presumed urinary tract infection. Continue amoxicillin. 4. Hypertension. Will continue to follow. Continue blood pressure medications with hold parameters. 5. Depression stable. No signs of audiovisual hallucination. No suicidal ideation. Continue venlafaxine. 6. Asthma, stable. 7. Dehydration. She appears to be back at her baseline. 8. Hypokalemia. Will replete. 9. Rhabdomyolysis, resolved. 10. Lactic acidosis likely secondary rhabdomyolysis and dehydration resolved. 11. DVT prophylaxis with Lovenox. DISPOSITION: She passed a swallow evaluation with recommendation of nectar thickened liquids. We will continue to see how she progresses with metabolic encephalopathy. PT is involved and discussed with her family members the disposition does appear to be slow at this point but we will see how she does on date day-to-day basis.
[2016-05-22 14:00] VITALS: BP 126/60
[2016-05-22 22:00] VITALS: BP 140/65
--- NOTE | 2016-05-23 05:58 | ECHO ---
DATE OF PROCEDURE: 05/22/2016 AGE: 60 GENDER: Female REFERRING PHYSICIAN: Dr. Jeovany Aguilera. HEIGHT: 64 inches. WEIGHT: 123 pounds. BODY SURFACE AREA: 1.6 sq m. INPATIENT: 4 [place] Room 4228 INDICATION: Cerebrovascular accident. MEASUREMENTS: 2D MEASUREMENTS: RV - 3.6 cm LV- 3.8 cm Septum - 1.2 cm Posterior wall - 1.2 cm Aortic root - 2.4 cm LA - 3.5 cm LVEF - 65% DOPPLER MEASUREMENTS: AV - 1.5 m/s LVOT - 0.95 m/s LVOT diameter - 1.9 cm MV-E: 65 A: 80 EA ratio 0.8 Early mitral deacceleration time 250 ms E-prime - 7 A-prime - 8 E/E prime ratio 9 PV - 0.8 m/s Pulmonary artery acceleration time 123 ms RVSP - 35-40 mmHg IVC - 2.0 cm COMMENTS: Normal sinus rhythm without intraventricular conduction disturbance. Left atrial size was upper limits of normal. Normal left ventricular size. Right heart chambers were also normal in size. LV wall thickness was upper limits of normal on real-time imaging from the parasternal and apical projections. Wall motion was symmetrical and normal. The mitral valvular apparatus appeared to be normal with the exception of slight irregularity of the anterior leaflet of the mitral valve mid body and leaflet tip. There was adequate leaflet excursion and no obvious posterior systolic buckling. Three equal size aortic cusps of normal thickness and cusp separation. Normal aortic root size. No separate intracardiac mass or pericardial effusion. Color flow Doppler study taken from the parasternal and apical projection showed at least mild to moderate mitral, mild tricuspid and no aortic insufficiency. Guided continuous wave Doppler of her aortic valve showed a normal peak systolic velocity against LV outflow tract obstruction. Pulsed and continuous wave Doppler of her LV inflow tract taken from the apical four-chamber projection showed normal diastolic filling velocities against mitral stenosis but there was slightly more prominent late diastolic/atrial dependent filling pattern. A degree of LV diastolic dysfunction was further confirmed by a prolonged early mitral deceleration time and tissue Doppler of her mitral annulus. Current estimated mean left atrial pressure, however, was within normal limits. Pulsed and continuous wave Doppler of her pulmonary trunk showed a normal peak systolic velocity against RV outflow tract obstruction. Her pulmonary artery acceleration time was normal against an elevated pulmonary vascular resistance. Guided continuous wave Doppler of her tricuspid valve allowed our estimation of her right ventricular systolic pressure (mildly increased). Her inferior vena cava was mildly dilated with reduced respiratory collapse suggestive an elevated central venous pressure. CONCLUSIONS: Mild irregularity of the anterior leaflet of mitral valve with associated mild - moderate insufficiency - worrisome for endocarditis. Would recommend transesophageal echo be performed to further evaluate her mitral valve structure and function. Borderline left ventricular hypertrophy with preserved systolic function. Left atrial size upper limits of normal with Doppler evidence of an impairment of LV diastolic relaxation but currently normal estimated mean left atrial pressure. Normal right heart chamber sizes with Doppler evidence of at least mild pulmonary hypertension. Mildly dilated IVC with reduced respiratory collapse suggestive an elevated central venous pressure.
[2016-05-23 06:00] VITALS: BP 117/71
[2016-05-23 06:50] LABS: BASO % 0.3 % (0.0-1.0); EOS % 0.7 % (0.0-3.0); LARGE UNSTAINED CELL # 0.1 K/mm3 (0.0-0.4); LARGE UNSTAINED CELL % 2.2 % (0.0-4.0); LYMPH # 1.2 K/mm3 (1.5-4.5); LYMPH % 26.2 % (24.0-44.0); MEAN CORPUSCULAR HEMOGLOBIN 30.7 pg (27.0-33.0); MEAN CORPUSCULAR HGB CONC 33.5 g/dl (32.0-36.5); MEAN CORPUSCULAR VOLUME 91.7 fl (80.0-96.0); MONO # 0.3 K/mm3 (0.0-0.8); MONO % 5.5 % (0.0-5.0); NEUTROPHILS # 3.1 K/mm3 (1.8-7.7); PLATELET COUNT, AUTOMATED 187 k/mm3 (150-450); RED CELL DISTRIBUTION WIDTH 12.6 % (11.5-14.5); WHITE BLOOD COUNT 4.7 K/mm3 (4.0-10.0)
[2016-05-23 07:18] LABS: ANION GAP 8 MEQ/L (8-16); BLOOD UREA NITROGEN 9 MG/DL (7-18); CALCIUM LEVEL 8.6 MG/DL (8.8-10.2); CARBON DIOXIDE LEVEL 28 MEQ/L (21-32); CHLORIDE LEVEL 107 MEQ/L (98-107); CREATININE FOR GFR 0.95 MG/DL (0.55-1.02); GLOMERULAR FILTRATION RATE > 60.0 (>45); GLUCOSE, FASTING 82 MG/DL (80-110); MAGNESIUM LEVEL 1.8 MG/DL (1.8-2.4); POTASSIUM SERUM 3.6 MEQ/L (3.5-5.1); SODIUM LEVEL 143 MEQ/L (136-145)
[2016-05-23] MEDS: ATORVASTATIN 20 MG TAB PO SCH (10:49)
[2016-05-23] MEDS: AMOXICILLIN 875 MG TAB PO SCH ×2 (10:49→20:25)
[2016-05-23] MEDS: SENOKOT S TAB PO SCH ×2 (10:49→20:24)
[2016-05-23] MEDS: amLODIPine 5 MG TAB PO SCH ×2 (10:50→20:25)
[2016-05-23] MEDS: ASPIRIN 81 MG ENTERIC TAB PO SCH (10:50)
[2016-05-23] MEDS: LABETALOL 200 MG TAB PO SCH ×2 (10:50→20:25)
[2016-05-23] MEDS: ENOXAPARIN 40 MG/0.4 ML SYRINGE (J1650) SC SCH (10:50)
--- NOTE | 2016-05-23 13:44 | IPN ---
DATE: 05/23/2016 60-year-old female seen at bedside. No overnight issues reported. Resting comfortably. We did have trouble with IV access through the night. Will try to start another peripheral line. No specific complaints. She does however continue to be moderately confused with some cognitive slowing, but she denies any specific complaints such as headache, lightheadedness, dizziness, chest pain, shortness of breath. No nausea or vomiting. OBJECTIVE: Temperature 96.6, pulse 77, respiratory rate 17, blood pressure 117/71, SpO2 is 98% on room air. GENERAL: The patient appears to be in no acute distress, is alert and oriented. HEENT: Unremarkable. LUNGS: Clear. HEART: Regular rate and rhythm. ABDOMEN: Soft. 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 No edema. No calf tenderness. LABORATORY DATA: White count 4.7, hemoglobin is 11.3, platelets are 187,000. Sodium is 143, potassium 3.6, chloride 107, bicarb 28, anion gap 8, BUN 9, creatinine 0.95, glucose 82, magnesium 1.8. 2D echo showed left ventricular ejection fraction of 65%. Mild irregularity of the anterior leaflet of the mitral valve with associated mild to moderate insufficiency worrisome for endocarditis. Recommended transesophageal echo for further evaluation. Borderline left ventricular hypertrophy with preserved systolic function. Left atrial size appears to be in the upper limits of normal with Doppler evidence of impaired left ventricular diastolic relaxation, but currently normal estimated mean left atrial pressure. Normal right heart chamber size with evidence of some mild pulmonary hypertension and mild dilated IVC with reduced respiratory collapse suggestive of elevated central venous pressure. ASSESSMENT/PLAN: 1. Dysarthria with concern of CVA versus TIA. No apparent acute findings on MRI/MRA. EEG did suggest metabolic encephalopathy; however, 2D echo does suggest some mild abnormality of the mitral valve. I did discuss this with the patient's son-in-law who is a staff physician here at the hospital who will explain this further to the family and we elected to proceed with a KELSI. Appreciate neurology's input. Will continue on aspirin and Lipitor in the time being. 2. Mitral valve abnormality. Will check an KELSI to rule out endocarditis. 3. Metabolic encephalopathy with altered mental status. Is showing some gradual improvement. There is the possibility of an underlying urinary tract infection with greater than 100,000 colony count of Enterococcus species. Will continue on Amoxil. 4. Urinary tract infection. As outlined above. 5. Hypertension. Stable. Will continue with hold parameters on her blood pressure medicines. 6. Depression. No signs of audiovisual hallucinations. No suicidal ideation. Continue on venlafaxine. 7. Asthma, stable. 8. Dehydration. Appears to be at her baseline. 9. Hypokalemia. Will replete. 10. Rhabdomyolysis, resolved. 11. Lactic acidosis secondary to rhabdomyolysis and dehydration, resolved. 12. Deep vein thrombosis (DVT) prophylaxis with Lovenox. DISPOSITION: She shows some slow improvement. Will continue with physical therapy. Again will check a KELSI. Repeat blood cultures times two. Depending on how her physical course goes, she may have some rehabilitation needs and may need subacute rehab versus placement when she is determined to be appropriate for discharge.
[2016-05-23 14:00] VITALS: BP 112/55
[2016-05-23 20:40] VITALS: BP 158/73
[2016-05-24 06:40] VITALS: BP 153/73
[2016-05-24 07:05] LABS: BASO % 0.5 % (0.0-1.0); EOS % 0.6 % (0.0-3.0); LARGE UNSTAINED CELL # 0.1 K/mm3 (0.0-0.4); LARGE UNSTAINED CELL % 1.9 % (0.0-4.0); LYMPH # 1.7 K/mm3 (1.5-4.5); LYMPH % 30.5 % (24.0-44.0); MEAN CORPUSCULAR HEMOGLOBIN 30.3 pg (27.0-33.0); MEAN CORPUSCULAR HGB CONC 32.8 g/dl (32.0-36.5); MEAN CORPUSCULAR VOLUME 92.3 fl (80.0-96.0); MONO # 0.3 K/mm3 (0.0-0.8); MONO % 5.1 % (0.0-5.0); NEUTROPHILS # 3.5 K/mm3 (1.8-7.7); NEUTROPHILS % 61.3 % (36.0-66.0); PLATELET COUNT, AUTOMATED 187 k/mm3 (150-450); RED CELL DISTRIBUTION WIDTH 12.7 % (11.5-14.5); WHITE BLOOD COUNT 5.7 K/mm3 (4.0-10.0)
[2016-05-24 07:16] LABS: ANION GAP 7 MEQ/L (8-16); BLOOD UREA NITROGEN 15 MG/DL (7-18); CALCIUM LEVEL 8.9 MG/DL (8.8-10.2); CARBON DIOXIDE LEVEL 29 MEQ/L (21-32); CHLORIDE LEVEL 107 MEQ/L (98-107); CREATININE FOR GFR 0.91 MG/DL (0.55-1.02); GLOMERULAR FILTRATION RATE > 60.0 (>45); GLUCOSE, FASTING 83 MG/DL (80-110); SODIUM LEVEL 143 MEQ/L (136-145)
[2016-05-24] MEDS ORDERED: LISINOPRIL 10 MG TAB PO SCH (09:00)
[2016-05-24] MEDS: ENOXAPARIN 40 MG/0.4 ML SYRINGE (J1650) SC SCH (09:00)
[2016-05-24] MEDS: SENOKOT S TAB PO SCH ×2 (09:43→22:14)
[2016-05-24] MEDS: amLODIPine 5 MG TAB PO SCH (09:43)
[2016-05-24] MEDS: ASPIRIN 81 MG ENTERIC TAB PO SCH (09:43)
[2016-05-24] MEDS: ATORVASTATIN 20 MG TAB PO SCH (09:43)
[2016-05-24] MEDS: LABETALOL 200 MG TAB PO SCH ×2 (09:43→22:15)
[2016-05-24] MEDS ORDERED: amLODIPine 5 MG TAB PO ONE (13:30)
--- NOTE | 2016-05-24 13:53 | IPN ---
DATE: 05/24/2016 60-year-old female seen at bedside. She does appear to be a little more cognizant today than yesterday, but still slow with her thought process. She denies any headache, lightheadedness, dizziness, chest pain, shortness breath, productive sputum cough or hemoptysis. No abdominal pain. OBJECTIVE: Temperature 96.7, pulse 82, respiratory rate is 19, blood pressure (BP) 153/73, SPO2 is 98% on room air. General: The patient appears to be in no acute distress. She is alert, pleasant. HEENT: Unremarkable. Lungs: Clear. Heart: Regular rate and rhythm. Abdomen: Soft. Extremities have equal movement throughout all four extremities. No notable deficits. LABORATORY DATA: White count 5.7, hemoglobin 11.4 and platelets are 187,000. Sodium 143, potassium 4.0, chloride 107, bicarb 29, anion gap 7, BUN 15, creatinine 0.91, glucose is 83, calcium 8.9, magnesium 2.0. Blood cultures remain negative. ASSESSMENT/PLAN: 1. Dysarthria. Concern for CVA versus TIA. No acute findings on CT scan, MRI, MRA. EEG suggested metabolic encephalopathy. 2-D echo did suggest some abnormality of the mitral valve. Will go ahead and plan on transesophageal echocardiogram (KELSI) later this afternoon. The patient is currently nothing by mouth (n.p.o.). Otherwise continue with aspirin and Lipitor. Appreciate neurology's input. 2. Mitral valve abnormality as indicated above. KELSI later today to rule out endocarditis. 3. Metabolic encephalopathy with altered mental status. Showing some gradual improvement. Will continue to treat the urinary tract infection as well. 4. Urinary tract infection. Continue on Amoxil. 5. Hypertension. I will modify her Norvasc to 10 mg once daily and I am adding lisinopril 10 mg daily with hold parameters for systolic blood pressure less 110. 6. Depression. No signs of audiovisual hallucination. No suicidal ideation. 7. Asthma, stable. 8. Dehydration. She appears back in her baseline. 9. Hypokalemia, resolved. 10. Rhabdomyolysis, resolved. 11. Lactic acidosis secondary to rhabdomyolysis and dehydration, resolved. 12. Deep vein thrombosis (DVT) prophylaxis. Will continue with Lovenox. DISPOSITION: As outlined. Will check a KELSI to rule out any valvular issues such as endocarditis. Continue with physical therapy and she likely will need some subacute rehab versus placement. VÍCTOR
[2016-05-24 14:00] VITALS: BP 156/88
[2016-05-24 21:05] VITALS: BP 160/76
[2016-05-25 05:35] VITALS: BP 160/85
[2016-05-25 06:05] LABS: BASO % 0.6 % (0.0-1.0); EOS % 0.7 % (0.0-3.0); LARGE UNSTAINED CELL # 0.1 K/mm3 (0.0-0.4); LYMPH # 1.8 K/mm3 (1.5-4.5); LYMPH % 29.1 % (24.0-44.0); MEAN CORPUSCULAR HEMOGLOBIN 29.9 pg (27.0-33.0); MEAN CORPUSCULAR HGB CONC 32.1 g/dl (32.0-36.5); MEAN CORPUSCULAR VOLUME 93.1 fl (80.0-96.0); MONO # 0.3 K/mm3 (0.0-0.8); MONO % 4.9 % (0.0-5.0); NEUTROPHILS # 3.9 K/mm3 (1.8-7.7); NEUTROPHILS % 62.8 % (36.0-66.0); PLATELET COUNT, AUTOMATED 189 k/mm3 (150-450); RED CELL DISTRIBUTION WIDTH 12.7 % (11.5-14.5); WHITE BLOOD COUNT 6.3 K/mm3 (4.0-10.0)
[2016-05-25 06:26] LABS: ANION GAP 9 MEQ/L (8-16); BLOOD UREA NITROGEN 14 MG/DL (7-18); CALCIUM LEVEL 8.6 MG/DL (8.8-10.2); CARBON DIOXIDE LEVEL 27 MEQ/L (21-32); CHLORIDE LEVEL 108 MEQ/L (98-107); CREATININE FOR GFR 0.94 MG/DL (0.55-1.02); GLOMERULAR FILTRATION RATE > 60.0 (>45); GLUCOSE, FASTING 76 MG/DL (80-110); MAGNESIUM LEVEL 1.9 MG/DL (1.8-2.4); POTASSIUM SERUM 4.3 MEQ/L (3.5-5.1); SODIUM LEVEL 144 MEQ/L (136-145)
--- NOTE | 2016-05-25 09:31 | IPN ---
DATE OF SERVICE: 05/25/2016 A 61-year-old female seen at bedside, resting comfortably, eating her breakfast. No overnight issues reported. She denies headache, chest pain, shortness of breath. No nausea or vomiting. Her cognition does appear to be slightly improved from yesterday. OBJECTIVE: Temperature is 96.5, pulse 70, respiratory rate 18, blood pressure (BP) 160/85, SpO2 is 98% on room air. General: The patient appears to be in no acute distress. Alert. HEENT: Unremarkable. Lungs: Clear. Heart: Regular rate and rhythm. Abdomen: Soft. Extremities: No edema. No calf tenderness. LABORATORY DATA: White count is 6.3, hemoglobin 11.2, and platelets are 189,000. Sodium is 144, potassium 4.3, chloride 108, bicarbonate 27, anion gap 9, BUN is 14, creatinine 0.94, glucose 76. Blood cultures negative. ASSESSMENT AND PLAN: 1. Dysarthria. Concern for cerebrovascular accident (CVA) versus transient ischemic attack (TIA). No acute findings on CT. Negative MRI and MRA. Electroencephalogram (EEG) had suggested metabolic encephalopathy. 2D echocardiogram, there was some question about mitral valve abnormality. She refused her transesophageal echocardiogram (KELSI) yesterday. I did request Dr. Lucero to take a look at the 2D echocardiogram again, and he felt there was mural thickening. Did not have any irregularity that would be consistent with vegetation. I did discuss this with the patient's son-in-law, who is on staff as one of our urologists, and we will just watch her for now since she remains afebrile. Blood cultures remain negative, and there is a lower probability that she would have an associated endocarditis. Nonetheless, will continue to monitor her clinically. She continues on aspirin and Lipitor and appreciate neurology's input. 2. Mitral valve abnormality, though to be related to mural thickening. Will continue to follow clinically. 3. Metabolic encephalopathy with altered mental status. Each day, she shows gradual improvement from a cognition standpoint, and her workup has been relatively unremarkable except for the abnormal urine culture and will continue to treat her for the full course for a urinary tract infection 4. Urinary tract infection (UTI). Symptomatically improved. Will continue on current antibiotics. 5. Hypertension. Will increase her lisinopril to 20 mg daily. Continue on Norvasc. 6. Depression. No audiovisual hallucinations. No suicidal ideation. 7. Asthma, stable. 8. Dehydration. She appears to be at her baseline. She has good oral intake. 9. Hypokalemia, resolved. 10. Rhabdomyolysis, resolved. 11. Lactic acidosis, secondary to rhabdomyolysis and dehydration, resolved. 12. Deep venous thrombosis (DVT) prophylaxis with Lovenox. DISPOSITION: The patient does continue to have slow improvement in her cognition. Will encourage physical therapy to continue to work with her, and she may need to be considered for some subacute rehabilitation versus placement. I did express my concern to the patient's son-in-law, Dr. Huggins, and we will see how she does through the weekend.
[2016-05-25] MEDS: SENOKOT S TAB PO SCH ×2 (10:17→21:28)
[2016-05-25] MEDS: LISINOPRIL 20 MG TAB PO SCH (10:39)
[2016-05-25] MEDS: ENOXAPARIN 40 MG/0.4 ML SYRINGE (J1650) SC SCH (10:39)
[2016-05-25] MEDS: LABETALOL 200 MG TAB PO SCH ×2 (10:39→21:29)
[2016-05-25] MEDS: ASPIRIN 81 MG ENTERIC TAB PO SCH (10:40)
[2016-05-25] MEDS: ATORVASTATIN 20 MG TAB PO SCH (10:40)
[2016-05-25 14:00] VITALS: BP 120/70
[2016-05-25 20:40] VITALS: BP 134/63
[2016-05-26 06:30] VITALS: BP 136/65
[2016-05-26] MEDS: ASPIRIN 81 MG ENTERIC TAB PO SCH (09:48)
[2016-05-26] MEDS: SENOKOT S TAB PO SCH ×2 (09:48→21:15)
[2016-05-26] MEDS: LABETALOL 200 MG TAB PO SCH ×2 (09:48→21:16)
[2016-05-26] MEDS: ATORVASTATIN 20 MG TAB PO SCH (09:48)
[2016-05-26] MEDS: LISINOPRIL 20 MG TAB PO SCH (09:48)
[2016-05-26] MEDS: ENOXAPARIN 40 MG/0.4 ML SYRINGE (J1650) SC SCH ×2 (09:48→13:26)
[2016-05-26 14:00] VITALS: BP 117/65
--- NOTE | 2016-05-26 15:08 | IPNPDOC ---
Assessment/Plan Date Seen The patient was seen on 05/26/16. Problems Problems: (1) Fall Status: Acute Problem Text: found on the ground; unclear how she ended up there (2) Encephalopathy Status: Acute Problem Text: patient had difficulty communicating when EMS found her; initially appeared to clinically have had a CVA but CT head, MRI/MRA brain are unremarkable; EEG suggests metabolic encephalopathy; possibly secondary to UTI; blood cultures negative; clinically slowly improving; continue to monitor (3) UTI (urinary tract infection) Status: Acute Problem Text: Ucx grew aerococcus urinae; already received 3 days of amoxicillin but will give it for 4 more days to complete 7 day treatment (4) Abnormal echocardiogram Status: Acute Problem Text: initially read as possible mitral valve abnormality; attempted KELSI on Friday but patient refused; Dr. Aguilera discussed the echo with Dr. Lucero, who felt that this is mural wall thickening; Dr. Aguilera discussed this with the patient's son in law, Dr. Huggins; given her negative blood cultures and lack of fever or leukocytosis, we will continue to monitor at this time but not pursue further KLESI attempts as endocarditis would be less likely (5) History of CVA with residual deficit Status: Chronic Problem Text: continue ASA and statin (6) Depression Status: Chronic (7) HTN (hypertension) Status: Chronic Problem Text: continue beta rosalee and increased dose of ACEI (8) Asthma Status: Chronic Response to Treatment: Stable Plan / VTE VTE Prophylaxis Ordered?: Yes (lovenox and SCDs) Subjective Review of Systems CC/HPI The patient is a 61-year-old female admitted with a reason for visit of Fall/ Stroke. Events since last encounter per nursing, was able to walk the daniel today General: Reports: ROS Unobtainable Objective Physical Examination General Exam: Positive: Alert, No Acute Distress Eye Exam: Positive: EOMI ENT Exam: Positive: Atraumatic Chest Exam: Positive: Clear to auscultation, Normal air movement Heart Exam: Positive: Rate Normal, Regular Rhythm Abdomen Exam: Positive: Soft, Negative: Tenderness Extremity Exam: Negative: Edema Neuro Exam: Positive: Other (slurred speech, increased tone) Psych Exam: Positive: Other (oriented to being in a hospital; when asked her name, replies with, "Don't worry about that.") Vital Signs/I&O Vital Signs Date Time Temp Pulse Resp B/P Pulse Ox O2 Delivery O2 Flow Rate FiO2 05/26/16 09:48 Room Air 05/26/16 09:48 136/65 05/26/16 09:48 80 05/26/16 06:30 97.3 18 98 I&O- Last 24 Hours up to 6 AM 05/26/16 05:59 Intake Total 1080 ml Output Total 0 ml Balance 1080 ml Laboratory Data Labs 24H Laboratory Tests 2 05/26/16 05:57: Magnesium Level 1.8 Microbiology Microbiology 05/23/16 Blood Culture - Preliminary, Resulted No Growth after 72 hours. All specime... 05/23/16 Blood Culture - Preliminary, Resulted No Growth after 72 hours. All specime... 05/19/16 Urine Culture - Final, Complete Aerococcus Urinae ZAHIDA ESTRADA May 26, 2016 15:08
[2016-05-26] MEDS: AMOXICILLIN 875 MG TAB PO SCH ×2 (17:55→21:15)
[2016-05-26 22:00] VITALS: BP 134/72
[2016-05-27 06:00] VITALS: BP_SYST 141; BP_SYST 166; BP_DIAS 71; BP_DIAS 86
[2016-05-27] MEDS: SENOKOT S TAB PO SCH ×3 (09:00→21:00)
[2016-05-27] MEDS: ENOXAPARIN 40 MG/0.4 ML SYRINGE (J1650) SC SCH (09:37)
[2016-05-27] MEDS: ASPIRIN 81 MG ENTERIC TAB PO SCH (09:37)
[2016-05-27] MEDS: LABETALOL 200 MG TAB PO SCH ×2 (09:37→21:21)
[2016-05-27] MEDS: AMOXICILLIN 875 MG TAB PO SCH ×2 (09:37→21:20)
[2016-05-27] MEDS: LISINOPRIL 20 MG TAB PO SCH (09:37)
[2016-05-27] MEDS: ATORVASTATIN 20 MG TAB PO SCH (09:37)
--- NOTE | 2016-05-27 13:14 | IPNPDOC ---
Assessment/Plan Date Seen The patient was seen on 05/27/16. Problems Problems: (1) Fall Status: Acute Problem Text: found on the ground; unclear how she ended up there; no apparent injury (2) Encephalopathy Status: Acute Problem Text: patient had difficulty communicating when EMS found her; initially appeared to clinically have had a CVA but CT head, MRI/MRA brain are unremarkable; EEG suggests metabolic encephalopathy; possibly secondary to UTI; blood cultures negative; clinically slowly improving; continue to monitor (3) UTI (urinary tract infection) Status: Acute Problem Text: Ucx grew aerococcus urinae; on amoxicillin, day 5/ (4) Abnormal echocardiogram Status: Acute Problem Text: initially read as possible mitral valve abnormality; attempted KELSI on Friday but patient refused; Dr. Aguilera discussed the echo with Dr. Lucero, who felt that this is mural wall thickening; Dr. Aguilera discussed this with the patient's son in law, Dr. Huggins; given her negative blood cultures and lack of fever or leukocytosis, we will continue to monitor at this time but not pursue further KELSI attempts as endocarditis would be less likely (5) History of CVA with residual deficit Status: Chronic Problem Text: continue ASA and statin (6) Depression Status: Chronic (7) HTN (hypertension) Status: Chronic Problem Text: continue beta rosalee and increased dose of ACEI (8) Asthma Status: Chronic Response to Treatment: Stable Plan / VTE VTE Prophylaxis Ordered?: Yes (lovenox and SCDs) Subjective Review of Systems CC/HPI The patient is a 61-year-old female admitted with a reason for visit of Fall/ Stroke. Events since last encounter patient denies that anything is bothering her and says she is "ok" but she is very cognitively slow and seems in a daze; patient would not allow blood draw today General: Reports: ROS Unobtainable Objective Physical Examination General Exam: Positive: Alert, No Acute Distress Eye Exam: Positive: EOMI ENT Exam: Positive: Atraumatic Chest Exam: Positive: Clear to auscultation, Normal air movement Heart Exam: Positive: Rate Normal, Regular Rhythm Abdomen Exam: Positive: Soft, Negative: Tenderness Extremity Exam: Negative: Edema Neuro Exam: Positive: Other (slurred speech, increased tone) Psych Exam: Positive: Other (oriented to being in a hospital; when asked her name, replies with, "I don't know.") Vital Signs/I&O Vital Signs Date Time Temp Pulse Resp B/P Pulse Ox O2 Delivery O2 Flow Rate FiO2 05/27/16 09:37 166/86 05/27/16 09:37 78 05/27/16 08:30 Room Air 05/27/16 06:00 96.0 18 98 I&O- Last 24 Hours up to 6 AM 05/27/16 06:00 Intake Total 1200 ml Output Total 0 ml Balance 1200 ml Laboratory Data Microbiology Microbiology 05/23/16 Blood Culture - Preliminary, Resulted No Growth after 72 hours. All specime... 05/23/16 Blood Culture - Preliminary, Resulted No Growth after 72 hours. All specime... 05/19/16 Urine Culture - Final, Complete Aerococcus Urinae ZAHIDA ESTRADA May 27, 2016 13:14
[2016-05-27 14:00] VITALS: BP 153/77
[2016-05-28 06:52] LABS: BASO # 0.1 K/mm3 (0.0-0.2); BASO % 1.2 % (0.0-1.0); EOS # 0.1 K/mm3 (0.0-0.50); EOS % 0.9 % (0.0-3.0); LARGE UNSTAINED CELL # 0.1 K/mm3 (0.0-0.4); LARGE UNSTAINED CELL % 2.1 % (0.0-4.0); LYMPH # 1.8 K/mm3 (1.5-4.5); LYMPH % 28.3 % (24.0-44.0); MEAN CORPUSCULAR HEMOGLOBIN 29.7 pg (27.0-33.0); MEAN CORPUSCULAR HGB CONC 31.9 g/dl (32.0-36.5); MEAN CORPUSCULAR VOLUME 93.2 fl (80.0-96.0); MONO # 0.3 K/mm3 (0.0-0.8); MONO % 5.5 % (0.0-5.0); NEUTROPHILS # 3.7 K/mm3 (1.8-7.7); PLATELET COUNT, AUTOMATED 188 k/mm3 (150-450); RED CELL DISTRIBUTION WIDTH 13.7 % (11.5-14.5)
[2016-05-28 07:15] LABS: ANION GAP 7 MEQ/L (8-16); BLOOD UREA NITROGEN 13 MG/DL (7-18); CALCIUM LEVEL 8.7 MG/DL (8.8-10.2); CARBON DIOXIDE LEVEL 28 MEQ/L (21-32); CHLORIDE LEVEL 108 MEQ/L (98-107); GLOMERULAR FILTRATION RATE > 60.0 (>45); GLUCOSE, FASTING 82 MG/DL (80-110); MAGNESIUM LEVEL 1.9 MG/DL (1.8-2.4); SODIUM LEVEL 143 MEQ/L (136-145)
[2016-05-28] MEDS: ASPIRIN 81 MG ENTERIC TAB PO SCH (10:09)
[2016-05-28] MEDS: AMOXICILLIN 875 MG TAB PO SCH ×2 (10:09→10:10)
[2016-05-28] MEDS: ATORVASTATIN 20 MG TAB PO SCH (10:10)
[2016-05-28] MEDS: SENOKOT S TAB PO SCH (10:10)
[2016-05-28] MEDS: ENOXAPARIN 40 MG/0.4 ML SYRINGE (J1650) SC SCH (10:10)
[2016-05-28 10:12] VITALS: BP 131/63
[2016-05-28] MEDS: LISINOPRIL 20 MG TAB PO SCH (10:12)
[2016-05-28] MEDS: LABETALOL 200 MG TAB PO SCH (10:12)
[2016-05-28] MEDS ORDERED: AMOX875T PO (10:36)
[2016-05-28] MEDS ORDERED: SENN1TAB2 PO (10:36)
[2016-05-28] MEDS ORDERED: ATOR1TAB21 PO (10:36)
[2016-05-28] MEDS ORDERED: LABE20TAB PO (10:36)
[2016-05-28] MEDS ORDERED: LISI-538 PO (10:36)
--- NOTE | 2016-05-28 15:05 | DSES ---
DATE OF ADMISSION: 05/18/2016 DATE OF DISCHARGE: 05/28/2016 Discharged to [facility]. DISCHARGE DIAGNOSES: 1. Fall without any trauma. 2. Metabolic encephalopathy, may be possibly due to urinary tract infection (UTI). 3. Urinary tract infection. 4. Old cerebrovascular accident (CVA) with residual right-sided hemiparesis. 5. Hypertension. 6. Anxiety and depression. 7. Asthma. 8. Mild to moderate mitral regurgitation. 9. Mild pulmonary artery hypertension. 10. Chronic expressive aphasia from old stroke. DISCHARGE MEDICATIONS: - amoxicillin 875 mg by mouth twice a day - atorvastatin 40 mg daily - labetalol 200 mg by mouth twice a day - lisinopril 20 mg daily - Senna Plus one tablet by mouth twice a day - aspirin 81 mg daily - calcium with vitamin D one tablet by mouth daily - multivitamins one tablet daily HOSPITAL COURSE: This is a 61-year-old female who was brought in by emergency medical services (EMS) after she was found on the ground at the base of the stairs in her apartment building. She at that point was unable to communicate. She had some word finding difficulties and slow speech so she was brought in for a possible stroke. The patient had a full workup including MRI/MRA, CAT scans, EEGs of the brain which did not show any acute seizure or any acute cerebrovascular accident but did show metabolic encephalopathy. The patient was found to have a urinary tract infection with Aerococcus urinae and was started on amoxicillin. The patient at baseline has an unstable gait and is supposed to walk with a walker but was not using that at her home. She also has some baseline expressive aphasia from her old stroke which was worse on admission. However, now she seems to be at baseline. The patient was evaluated by Dr. Kyle from neurology. At present, the patient is functionally at her baseline with stable vital signs and is going to be discharged to long-term residential. PHYSICAL EXAMINATION: VITAL SIGNS: Temperature 95.3, pulse 69, respiratory rate 19, blood pressure 131/63, pulse oximetry 100% on room air. GENERAL: The patient is awake, alert and oriented times two, sitting up in chair , in no acute distress. HEENT: Normocephalic, atraumatic. Moist mucous membranes. Anicteric eyes. CHEST: Clear to auscultation. CARDIOVASCULAR: S1, S2, regular. No rub, murmur, or gallop. ABDOMEN: Soft, nontender. Bowel sounds present. EXTREMITIES: No edema. LABORATORY DATA: WBC 6, hemoglobin 11.3, platelets 188. Sodium 143, potassium 4, chloride 108, bicarbonate 28, BUN 13, creatinine 0.9, glucose 82, calcium 8.7, magnesium 1.9. Urine toxicology was negative. RPR serology was negative. Vitamin B12 level was 622. TSH was normal. EEG shows mild generalized slowing with disorganization of the background consistent with nonspecific diffuse cerebral dysfunction such as seen in encephalopathy, toxic, metabolic, infectious, autoimmune or multifocal structural abnormalities or medication. No epileptiform abnormalities were seen. Echocardiogram showed an EF of 65%, mild pulmonary hypertension with a pulmonary arterial pressure of 40, mild elevated central venous pressure. In the impression part, it was also mentioned irregularity of the anterior leaflet of mitral valve suspicious for endocarditis. However, it was evaluated by a second compound machine operator, Dr. Lucero, who felt that there was no suspicion for endocarditis. There was also mild to moderate mitral insufficiency. MRI of brain showed bilateral periventricular and subcortical white matter, severe chronic ischemic changes, old right temporal infarct, generalized parenchymal atrophy, age-appropriate, chronic ethmoid and maxillary sinusitis. MRA of brain was within normal limits. X-rays of spine, hip and pelvis did not show any acute fracture or dislocation. DISPOSITION: The patient is discharged to [facility] for long-term care. DISCHARGE INSTRUCTIONS: The patient is to followup with physician at [facility]. Mechanical soft diet. Activity as tolerated. MTDD
== END 2016-05-28 13:08 | DRG 463 ==
LOC: M ED 21:48 → M MSPAV 23:52 → M ED INP 23:53 → M PCU 05-19 13:11 → M MSPAV 05-19 21:35
PROVIDERS: ADMIT Internal Medicine Nephrology; ATTEND Internal Medicine Nephrology
DX: N39.0 Urinary tract infection, site not specified (principal); G93.41 Metabolic encephalopathy; I69.351 Hemiplegia and hemiparesis following cerebral infarction affecting right dominant side; M62.82 Rhabdomyolysis; E87.2 Acidosis; E87.6 Hypokalemia; R47.1 Dysarthria and anarthria; I10 Essential (primary) hypertension; I27.2 Other secondary pulmonary hypertension; I34.0 Nonrheumatic mitral (valve) insufficiency; I69.320 Aphasia following cerebral infarction; R26.9 Unspecified abnormalities of gait and mobility; B95.4 Other streptococcus as the cause of diseases classified elsewhere; J45.909 Unspecified asthma, uncomplicated; F41.8 Other specified anxiety disorders; Z79.82 Long term (current) use of aspirin; Z79.899 Other long term (current) drug therapy

== ENCOUNTER → 2016-05-29 | Outpatient (REF) | payer OTHER, MEDICARE ==
[~2016-05-29] MED LIST: AMOX875T PO; ASPI81TA7 PO; ATOR1TAB21 PO; CALCTAB41 PO; LABE20TAB PO; LISI-538 PO; SENN1TAB2 PO; VITMTA PO
[2016-05-29 11:07] LABS: FOLATE > 24.0 NG/ML; VITAMIN B12 LEVEL 987 PG/ML
== END ==
LOC: SKLAB4 05:13
PROVIDERS: ATTEND Internal Medicine
DX: F03.90 Unspecified dementia, unspecified severity, without behavioral disturbance, psychotic disturbance, mood disturbance, and anxiety (principal); Z79.899 Other long term (current) drug therapy

== ENCOUNTER → 2016-06-21 | Outpatient (REF) | LOC: SKLAB4 06:30 | PROVIDERS: ATTEND Internal Medicine | DX: I10 Essential (primary) hypertension (principal) ==

== ENCOUNTER → 2016-06-21 | Outpatient (REF) | payer OTHER, MEDICARE ==
[2016-06-21 07:37] LABS: MEAN CORPUSCULAR HEMOGLOBIN 30.9 pg (27.0-33.0); MEAN CORPUSCULAR HGB CONC 32.5 g/dl (32.0-36.5); MEAN CORPUSCULAR VOLUME 95.2 fl (80.0-96.0); RED CELL DISTRIBUTION WIDTH 12.3 % (11.5-14.5); WHITE BLOOD COUNT 6.1 K/mm3 (4.0-10.0)
[2016-06-21 07:56] LABS: ANION GAP 9 MEQ/L (8-16); BLOOD UREA NITROGEN 19 MG/DL (7-18); CALCIUM LEVEL 9.2 MG/DL (8.8-10.2); CARBON DIOXIDE LEVEL 31 MEQ/L (21-32); CHLORIDE LEVEL 107 MEQ/L (98-107); CREATININE FOR GFR 0.95 MG/DL (0.55-1.02); GLOMERULAR FILTRATION RATE > 60.0 (>45); GLUCOSE, FASTING 84 MG/DL (80-110); POTASSIUM SERUM 4.1 MEQ/L (3.5-5.1); SODIUM LEVEL 147 MEQ/L (136-145)
== END ==
LOC: SKLAB4 02:16
PROVIDERS: ATTEND Internal Medicine
DX: I10 Essential (primary) hypertension (principal)

== ENCOUNTER 2016-08-05 07:29 | Emergency (ER) | payer OTHER, MEDICARE ==
--- NOTE | 2016-08-05 08:30 | REP ---
A CT of the brain without IV contrast: Comparison is 05/18/2016. There is a left periorbital scalp contusion/laceration. There is a calcified left parietal 2.3 cm scalp mass, unchanged. There is no erosion of the calvarium. There is no subdural or epidural hematoma. There is no subarachnoid or intraparenchymal hemorrhage. The ventricles are enlarged, unchanged, possibly hydrocephalus. There is a moderate enlargement of the sulci diffusely, unchanged, compatible with diffuse volume loss. There is heterogeneity in the subcortical and periventricular white matter compatible with chronic microvascular ischemia, unchanged. I suspect there is an old right temporal lobe infarct, unchanged. The visualized paranasal sinuses and mastoid air cells are clear. Impression: There is a left periorbital scalp contusion/laceration. There is a calcified left parietal 2.3 cm scalp mass, unchanged. There is no erosion of the calvarium. There is no subdural or epidural hematoma. No other acute hemorrhage. No edema, mass effect or midline shift. There are chronic stable changes consisting of probable hydrocephalus, old right temporal lobe infarct, diffuse volume loss, and chronic microvascular ischemia. Signed by Brenton Matt MD 08/05/2016 08:22 A
--- NOTE | 2016-08-05 08:36 | REP ---
Cervical spine CT: Axial images are acquired with helical scanning and are reformatted in sagittal and coronal projections. There are no comparisons. The skull base, C1-C2 are unremarkable except for osteoarthritis. Vertebral body heights and alignment are normal. The facets are normally aligned. There is facet osteoarthritis. The prevertebral soft tissues are unremarkable. There are no posterior element fractures. Impression: There is no fracture or listhesis. There is osteoarthritis as described. Signed by Brenton Matt MD 08/05/2016 08:28 A
[2016-08-05] MEDS ORDERED: DERMABOND TOPICAL SKIN ADHESIVE TOP ONE (09:00)
[2016-08-05 09:22] VITALS: BP 164/75
[2016-08-05] MEDS ORDERED: ADACEL/BOOSTRIX VACCINE (DIPHTH/PERTUSS/ACELL/TETANUS)0.5ML SYR (90715) IM ONE (09:45)
== END 2016-08-05 09:50 | disposition home or self-care (01) ==
LOC: M ED 09:09
DX: S01.91XA Laceration without foreign body of unspecified part of head, initial encounter (principal); Z86.73 Personal history of transient ischemic attack (TIA), and cerebral infarction without residual deficits; W05.0XXA Fall from non-moving wheelchair, initial encounter; Y92.122 Bedroom in nursing home as the place of occurrence of the external cause; Y93.89 Activity, other specified; Y99.9 Unspecified external cause status

== ENCOUNTER → 2016-08-14 | Outpatient (CLI) | payer MEDICARE ==
--- NOTE | 2016-08-16 06:45 | EEG ---
DATE OF PROCEDURE: 08/14/2016 REFERRING PHYSICIAN: Dr. Vish Bloom DIAGNOSIS: Seizure activity. EEG NUMBER: [id number]. HISTORY: The patient is a 61-year-old woman with history of left-sided ischemic stroke causing right hemiparesis. She was found on the floor at [facility]. This EEG was done to rule out epileptic potential. She is currently taking calcium, Lipitor, aspirin, Lexapro, labetalol, lisinopril, etc. TECHNICAL DESCRIPTION: This digital EEG was recorded by 21 scalp, ear and two EKG electrodes and was reviewed in bipolar and referential montages following reformatting in 10-20 international electrode placement system. INTERPRETATION: The patient was noted to be in awake and drowsy states during this EEG. Resting awake background rhythm consisted of 8-9 Hz alpha activity measuring 15-40 microvolts in amplitude which was symmetric and reactive to eye opening. Attenuation of posterior dominant rhythm was seen during transition into drowsiness. Anteriorly low voltage mixed frequencies were noted. Stage I and II sleep were reviewed and were symmetric bilaterally. Hyperventilation could not be performed. Photic stimulation remained unremarkable. Left parietal and temporal delta slowing was noted with rare sharp waves. No clinical or electrographic seizures were recorded. CONCLUSION: This EEG in awake, drowsy states, stage I and II sleep is abnormal due to presence of left parietal and temporal focal slowing and rare epileptiform discharges consistent with focal, cortical, structural or functional abnormality with epileptic potential. Clinical correlation is recommended.
== END ==
LOC: M SLEEP 11:13
PROVIDERS: ATTEND Internal Medicine
DX: R56.9 Unspecified convulsions (principal)

== ENCOUNTER → 2016-09-02 | Outpatient (REF) ==
[2016-09-02 09:23] LABS: BASO % 0.5 % (0.0-1.0); EOS % 0.1 % (0.0-3.0); LARGE UNSTAINED CELL # 0.1 K/mm3 (0.0-0.4); LARGE UNSTAINED CELL % 1.9 % (0.0-4.0); LYMPH # 1.3 K/mm3 (1.5-4.5); LYMPH % 21.5 % (24.0-44.0); MEAN CORPUSCULAR HEMOGLOBIN 30.9 pg (27.0-33.0); MEAN CORPUSCULAR HGB CONC 33.1 g/dl (32.0-36.5); MEAN CORPUSCULAR VOLUME 93.5 fl (80.0-96.0); MONO # 0.3 K/mm3 (0.0-0.8); MONO % 4.5 % (0.0-5.0); NEUTROPHILS # 4.4 K/mm3 (1.8-7.7); NEUTROPHILS % 71.6 % (36.0-66.0); PLATELET COUNT, AUTOMATED 172 k/mm3 (150-450); RED CELL DISTRIBUTION WIDTH 12.2 % (11.5-14.5); WHITE BLOOD COUNT 6.2 K/mm3 (4.0-10.0)
[2016-09-02 09:42] LABS: ALBUMIN 3.6 GM/DL (3.2-5.2); ALBUMIN/GLOBULIN RATIO 0.92 (1.00-1.93); ALKALINE PHOSPHATASE 90 U/L (45-117); ALT/SGPT 38 U/L (12-78); ANION GAP 7 MEQ/L (8-16); AST/SGOT 26 U/L (15-37); BILIRUBIN,TOTAL 0.2 MG/DL (0.2-1.0); BLOOD UREA NITROGEN 17 MG/DL (7-18); CALCIUM LEVEL 8.7 MG/DL (8.8-10.2); CARBAMAZEPINE (TEGRETOL) LEVEL 5.2 UG/ML (4.0-10.0); CARBON DIOXIDE LEVEL 28 MEQ/L (21-32); CHLORIDE LEVEL 105 MEQ/L (98-107); CREATININE FOR GFR 0.97 MG/DL (0.55-1.02); GLOMERULAR FILTRATION RATE > 60.0 (>45); GLUCOSE, FASTING 118 MG/DL (80-110); POTASSIUM SERUM 3.7 MEQ/L (3.5-5.1); SODIUM LEVEL 140 MEQ/L (136-145); TOTAL PROTEIN 7.5 GM/DL (6.4-8.2)
== END ==
LOC: SKLAB4 09:23
PROVIDERS: ATTEND Internal Medicine
DX: I10 Essential (primary) hypertension (principal)

== ENCOUNTER → 2016-09-16 | Outpatient (REF) | payer MEDICARE, OTHER ==
[2016-09-16 08:50] LABS: ANION GAP 9 MEQ/L (8-16); BLOOD UREA NITROGEN 22 MG/DL (7-18); CALCIUM LEVEL 8.5 MG/DL (8.8-10.2); CARBON DIOXIDE LEVEL 26 MEQ/L (21-32); CHLORIDE LEVEL 110 MEQ/L (98-107); CREATININE FOR GFR 0.95 MG/DL (0.55-1.02); GLOMERULAR FILTRATION RATE > 60.0 (>45); GLUCOSE, FASTING 85 MG/DL (80-110); SODIUM LEVEL 145 MEQ/L (136-145)
== END ==
LOC: SKLAB4 11:36
PROVIDERS: ATTEND Internal Medicine
DX: G35 Multiple sclerosis (principal); I10 Essential (primary) hypertension

== ENCOUNTER → 2016-12-11 | Outpatient (REF) | payer MEDICARE ==
[~2016-12-11] MED LIST changes: +ASPI1TAB15 PO; -ASPI81TA7 PO
[2016-12-11 07:47] LABS: ALBUMIN 3.3 GM/DL (3.2-5.2); ALBUMIN/GLOBULIN RATIO 1.06 (1.00-1.93); ALKALINE PHOSPHATASE 78 U/L (45-117); ALT/SGPT 24 U/L (12-78); ANION GAP 7 MEQ/L (8-16); AST/SGOT 20 U/L (15-37); BILIRUBIN,TOTAL 0.3 MG/DL (0.2-1.0); BLOOD UREA NITROGEN 12 MG/DL (7-18); CALCIUM LEVEL 8.9 MG/DL (8.8-10.2); CARBAMAZEPINE (TEGRETOL) LEVEL 4.4 UG/ML (4.0-10.0); CARBON DIOXIDE LEVEL 28 MEQ/L (21-32); CHLORIDE LEVEL 108 MEQ/L (98-107); CREATININE FOR GFR 0.83 MG/DL (0.55-1.02); GLOMERULAR FILTRATION RATE > 60.0 (>45); GLUCOSE, FASTING 90 MG/DL (80-110); POTASSIUM SERUM 4.4 MEQ/L (3.5-5.1); SODIUM LEVEL 143 MEQ/L (136-145); TOTAL PROTEIN 6.4 GM/DL (6.4-8.2)
== END ==
LOC: SKLAB4 03:43
PROVIDERS: ATTEND Internal Medicine
DX: R56.9 Unspecified convulsions (principal); I10 Essential (primary) hypertension

== ENCOUNTER → 2016-12-23 | Outpatient (REF) | payer MEDICARE ==
[2016-12-23 09:23] LABS: ANION GAP 9 MEQ/L (8-16); BLOOD UREA NITROGEN 16 MG/DL (7-18); CALCIUM LEVEL 8.5 MG/DL (8.8-10.2); CARBON DIOXIDE LEVEL 27 MEQ/L (21-32); CHLORIDE LEVEL 107 MEQ/L (98-107); CREATININE FOR GFR 0.91 MG/DL (0.55-1.02); GLOMERULAR FILTRATION RATE > 60.0 (>45); GLUCOSE, FASTING 98 MG/DL (80-110); POTASSIUM SERUM 4.5 MEQ/L (3.5-5.1); SODIUM LEVEL 143 MEQ/L (136-145)
== END ==
LOC: SKLAB4 09:55
PROVIDERS: ATTEND Internal Medicine
DX: G35 Multiple sclerosis (principal)

== ENCOUNTER → 2017-02-08 | Outpatient (REF) | payer MEDICARE | LOC: SKLAB4 03:19 | PROVIDERS: ATTEND Internal Medicine | DX: R56.9 Unspecified convulsions (principal) ==

== ENCOUNTER → 2017-02-11 | Outpatient (REF) | payer MEDICARE | LOC: SKLAB4 18:42 | PROVIDERS: ATTEND Internal Medicine | DX: R50.9 Fever, unspecified (principal) ==

== ENCOUNTER → 2017-02-11 | Outpatient (REF) | payer MEDICARE ==
[2017-02-11 15:37] LABS: ANION GAP 9 MEQ/L (8-16); BLOOD UREA NITROGEN 25 MG/DL (7-18); CARBON DIOXIDE LEVEL 26 MEQ/L (21-32); CHLORIDE LEVEL 109 MEQ/L (98-107); CREATININE FOR GFR 0.73 MG/DL (0.55-1.02); GLOMERULAR FILTRATION RATE > 60.0 (>45); GLUCOSE, FASTING 182 MG/DL (80-110); POTASSIUM SERUM 3.5 MEQ/L (3.5-5.1); SODIUM LEVEL 144 MEQ/L (136-145)
[2017-02-11 15:38] LABS: MEAN CORPUSCULAR HEMOGLOBIN 30.5 pg (27.0-33.0); MEAN CORPUSCULAR HGB CONC 32.3 g/dl (32.0-36.5); MEAN CORPUSCULAR VOLUME 94.3 fl (80.0-96.0); RED CELL DISTRIBUTION WIDTH 12.7 % (11.5-14.5); WHITE BLOOD COUNT 15.6 10^3/uL (4.0-10.0)
--- NOTE | 2017-02-11 16:08 | REP ---
Chest one-view HISTORY: Cough Comparison: 05/19/2016 Increased density is present in the left perihilar area and left lower lobe consistent with atelectasis or infiltrate. The right lung is clear. The heart is normal in size. The pulmonary vasculature is normal in appearance. Impression: Left perihilar and left lower lobe atelectasis or infiltrate. A small underlying left perihilar mass cannot be excluded. A repeat chest x-ray is recommended for further evaluation. Signed by Alvaro Bhagat MD 02/11/2017 04:00 P
[2017-02-11 20:10] LABS: YEAST LIKE CELL URINE AUTO SMALL
== END ==
LOC: SKLAB4 13:55
PROVIDERS: ATTEND Internal Medicine
DX: R50.9 Fever, unspecified (principal)